=== PATIENT | female | born 1960 | race Caucasian/White ===

== ENCOUNTER 2015-12-24 08:48 | Outpatient (RCR) | payer MEDICARE, MEDICAID ==
[~2015-12-24 08:48] MED LIST: ALPR0.5T PO; ASPI-587 PO; CALC10009 PO; CLC500CT PO; CLIN150C17 PO; CLPD75T PO; DICY10CA26 PO; DICY20TA10 PO; HYDR-1231 PO; HYDR-757 PO; INSASP10V SQ; INSU100I23 SQ; LIRA0.6P SQ; LISI40TA PO; LVT.05T PO; NITR0.4T SL; OMEG1CAP51 PO; OMEP20CA12 PO; RANI300T4 PO; RED600TA PO
--- OUTSIDE RECORDS SUMMARY | 2015-12-24 08:52 | XMS REPORT | Continuity of Care Document ---
Author Author [facility] Organization [facility] Address Unknown Phone Unavailable Care Team Providers Care Dental Office Assistant Name Role Phone NO, LOCAL PHYSICIAN PCP Unavailable Insurance Providers Payer Name Policy Number Subscriber Name Relationship s Medicare [id number] MendelLottie L 18 Self / Same As Patient Medicaid [place] [id number] MendelLottie Purcell 18 Self / Same As Patient Advance Directives Directive Response Recorded Date/Time Advance Directives No 12/18/13 12:45pm Health Care Power of Carbonator No 12/18/13 12:45pm Organ Donor No 12/18/13 12:45pm Resuscitation Status Full Code 12/18/13 12:45pm Problems Medical Problems Problem Onset Date Status Nausea alone Unknown Active Ankle sprain Unknown Active Medications Medication Dose Route Sig Days/Qty Instructions Order Date Discontinued Date Status Lisinopril 40 Mg PO DAILY 07/25/13 Active [place]-3 Fatty Acids/Fish Oil 1,000 Mg PO DAILY 07/25/13 Active Red Yeast Rice 600 Mg PO DAILY 07/25/13 Active Alprazolam 0.5 Mg PO FOUR TIMES DAILY PRN ANXIETY NEEDED FOR ANXIETY 07/25/13 Active Liraglutide 0.6 Mg SQ BEDTIME BETTER 07/25/13 12/18/13 Discontinued Aspirin 81 Mg PO DAILY 07/25/13 Active Levothyroxine Sodium (Levothroid) 50 Mcg PO DAILY 07/25/13 Active Dicyclomine HCl 10 Mg PO BEFORE MEALS PRN STOMACH UPSET 07/25/13 Active Insulin Human Lispro SQ THREE TIMES A DAY BEFORE MEALS PER SLIDING SCALE 07/25/13 Active Ranitidine Hcl 300 Mg PO TWICE A DAY PRN STOMACH UPSET 07/25/13 Active Calcium Carbonate 1,000 Mg PO FOUR TIMES DAILY PRN HEARTBURN TAKES 2 ( 500MG) TABLET NEEDED FOR HEARTBURN 07/25/13 12/18/13 Discontinued Clopidogrel Bisulfate 75 Mg PO DAILY 30 Qty 07/26/13 Active Hydrocodone Bit/Acetaminophen 1-2 Tab PO EVERY 6 HOURS PRN PAIN 20 Qty 12/18/13 Active Social History Social History Problem Response Recorded Date/Time Alcohol Use Denies Use 12/18/2013 12:45pm Recreational Drug Use No 12/18/2013 12:45pm Recent Foreign Travel No 12/18/2013 12:42pm Recent Infectious Disease Exposure No 12/18/2013 12:42pm Smoking Status Never a Smoker 12/18/2013 12:45pm Query Response Start Date Stop Date Smoking Status Never a Smoker Hospital Discharge Instructions No hospital discharge instructions. Plan of Care No plan of care. Functional Status No functional status results. Allergies, Adverse Reactions, Alerts Allergen Type Severity Reaction Status Last Updated Beta-Blockers (Beta-Adrenergic Blocking Agts) ([id number]) Adverse Reaction Intermediate chest tightness Active 10/30/13 Sucsoqe-Kfm-Avu Reductase Inhibitors ([id number]) Allergy Intermediate Active 07/25/13 morphine Allergy Mild Active 07/25/13 Oxycodone Adverse Reaction Mild NAUSEA Active 07/25/13 acetaminophen Adverse Reaction Mild NAUSEA Active 07/25/13 clonazepam Allergy Mild Active 07/25/13 albuterol ([id number]) Adverse Reaction Mild Active 07/25/13 Gabapentin Adverse Reaction Mild Active 07/25/13 metformin ([id number]) Adverse Reaction Intermediate Active 07/25/13 Bupropion Adverse Reaction Mild Active 07/25/13 levofloxacin Adverse Reaction Mild Active 07/25/13 insulin aspart ([id number]) Adverse Reaction Mild Active 07/25/13 Insulin Aspart Protamine Human ([id number]) Adverse Reaction Mild Active 07/25/13 ezetimibe Adverse Reaction Mild NAUSEA Active 07/25/13 insulin detemir ([id number]) Adverse Reaction Mild Active 07/25/13 pregabalin ([id number]) Adverse Reaction Mild Dizzy Active 10/30/13 Lantis Adverse Reaction Unknown can't tolerate Active 10/30/13 Immunizations Name Given Type Date of Pneumonia Vaccine 06/07/13 Historical Vital Signs Acute Vital Signs Vital Response Date/Time Temperature (Fahrenheit) 96.7 degrees F (97.6 - 99.5) Temperature (Calculated Celsius) 35.37772 degrees C (36.4 - 37.5) Temperature Source Temporal Pulse Rate (adult) 96 bpm (60 - 90) Respiratory Rate 18 bpm (12 - 24) O2 Sat by Pulse Oximetry 95 % (88 - 100) Blood Pressure 153/106 mm Hg Pain Pain Intensity 8 Height (Feet) 5 feet Height (Inches) 0.5 inches Height (Calculated Centimeters) 153.873515 cm Weight (Pounds) 172 pounds Weight (Calculated Grams) 35019.888 gm Weight (Calculated Kilograms) 78.161537 kilograms Calculated BMI 32.97 Results Test Source Date Result Interp. Ref. Range Comments Activated Partial Thromboplast Time July 25, 2013 7:45am 30 SEC N 24-35 Alanine Aminotransferase (ALT/SGPT) November 06, 2013 7:53am 46 U/L N 0 -55 Albumin November 06, 2013 7:53am 4.3 G/DL N 3.2-4.5 Alkaline Phosphatase November 06, 2013 7:53am 105 U/L N 40-136 Aspartate Amino Transf (AST/SGOT) November 06, 2013 7:53am 31 U/L N 5- 34 BUN/Creatinine Ratio November 06, 2013 7:53am 12 - Basophils # (Auto) October 30, 2013 12:42pm 0.1 10^3/uL N 0.0-0.1 Basophils (%) (Auto) October 30, 2013 12:42pm 1 % N 0-10 Blood Urea Nitrogen November 06, 2013 7:53am 10 MG/DL N 7-18 Calcium Level November 06, 2013 7:53am 9.4 MG/DL N 8.5-10.1 Carbon Dioxide Level November 06, 2013 7:53am 20 MMOL/L L 21-32 Chloride Level November 06, 2013 7:53am 103 MMOL/L N 98-107 Cholesterol Level November 06, 2013 7:53am 348 MG/DL H -200 Creatinine November 06, 2013 7:53am 0.82 MG/DL N 0.60-1.30 Direct Bilirubin November 06, 2013 7:53am 0.2 MG/DL N 0.0-0.3 Eosinophils # (Auto) October 30, 2013 12:42pm 0.2 10^3/uL N 0.0-0.3 Eosinophils (%) (Auto) October 30, 2013 12:42pm 2 % N 0-10 Glucose Level November 06, 2013 7:53am 315 MG/DL H 70-105 HDL Cholesterol November 06, 2013 7:53am 49 MG/DL N 40-60 Hematocrit October 30, 2013 12:42pm 43 % N 35-52 Hemoglobin October 30, 2013 12:42pm 14.6 G/DL N 11.5-16.0 Indirect Bilirubin November 06, 2013 7:53am 0.4 MG/DL - LDL Cholesterol July 25, 2013 7:45am 172 MG/DL H 0-129 LDL Cholesterol Direct November 06, 2013 7:53am 221 MG/DL H 1-129 Lipase October 30, 2013 12:42pm 54 U/L N 8-78 Lymphocytes # (Auto) October 30, 2013 12:42pm 3.5 X 10^3 N 1.0-4.0 Lymphocytes (%) (Auto) October 30, 2013 12:42pm 38 % N 12-44 Mean Corpuscular Hemoglobin October 30, 2013 12:42pm 29 PG N 25-34 Mean Corpuscular Hemoglobin Concent October 30, 2013 12:42pm 34 G/DL N 32-36 Mean Corpuscular Volume October 30, 2013 12:42pm 85 FL N 80-99 Mean Platelet Volume October 30, 2013 12:42pm 10.2 FL N 7.4-10.4 Monocytes # (Auto) October 30, 2013 12:42pm 0.6 X 10^3 N 0.0-1.0 Monocytes (%) (Auto) October 30, 2013 12:42pm 7 % N 0-12 Neutrophils # (Auto) October 30, 2013 12:42pm 4.8 X 10^3 N 1.8-7.8 Neutrophils (%) (Auto) October 30, 2013 12:42pm 52 % N 42-75 Platelet Count October 30, 2013 12:42pm 300 10^3/uL N 130-400 Potassium Level November 06, 2013 7:53am 4.6 MMOL/L N 3.6-5.0 Prothrombin Time July 25, 2013 7:45am 11.7 SEC L 12.2-14.7 Red Blood Count October 30, 2013 12:42pm 5.01 10^6/uL N 4.35-5.85 Red Cell Distribution Width October 30, 2013 12:42pm 12.6 % N 10.0- 14.5 Sodium Level November 06, 2013 7:53am 133 MMOL/L L 135-145 Total Bilirubin November 06, 2013 7:53am 0.6 MG/DL N 0.1-1.0 Total Protein November 06, 2013 7:53am 7.8 G/DL N 6.4-8.2 Triglycerides Level November 06, 2013 7:53am 379 MG/DL H 0-149 VLDL Cholesterol November 06, 2013 7:53am 76 MG/DL H 5-40 White Blood Count October 30, 2013 12:42pm 9.2 10^3/uL N 4.3-11.0 Glucometer July 26, 2013 5:34am 180 MG/DL H 70-110 Estimat Glomerular Filtration Rate November 06, 2013 7:53am > 60 - GFR INTERPRETIVE DATA UNITS FOR ESTIMATED GFR (eGFR): mL/min/1.73 M2 REFERENCE RANGE FOR ESTIMATED GFR (eGFR) eGFR NORMAL eGFR >60 MODERATELY DECREASED eGFR 30-59 SEVERLY DECREASED eGFR 15-29 KIDNEY FAILURE <15 (OR DIALYSIS) INR Comment July 25, 2013 7:45am 0.9 N 0.8-1.4 INTERPRETIVE DATASUGGESTED THERAPEUTIC RANGE FOR INR'S: VENOUS THROMBOSIS, PULMONARY EMBOLISM, OR PREVENTION OF SYSTEMIC EMBOLISM (EG. IN ATRIAL FIBRILLATION): 2.0 - 3.0 MECHANICAL PROSTHETIC HEART VALVES: 2.5 - 3.5* *NOTE: INR'S UP TO 4.5 MAY BE NECESSARY IN SELECTED GROUPS OF HIGH RISK PATIENTS. [employer] CONSENSUS CONFERENCE ON ANTITHROMBOTIC THERAPY (2000). MRSA Screen Nasal July 25, 2013 7:45am MRSA not isolated Procedures No known history of procedures. Encounters Encounter Location Date/Time Registered Emergency Room [facility] 12/18/13 11:27am Recent Diagnosis
== END 2016-03-23 | disposition home or self-care (01) ==
LOC: CARD 08:48
PROVIDERS: ATTEND Internal Medicine Cardiovascular Disease
DX: R00.2 Palpitations (principal); I25.10 Atherosclerotic heart disease of native coronary artery without angina pectoris; E11.9 Type 2 diabetes mellitus without complications; I10 Essential (primary) hypertension; E78.4 Other hyperlipidemia; I73.9 Peripheral vascular disease, unspecified; M79.89 Other specified soft tissue disorders

== ENCOUNTER 2016-08-17 17:11 | Inpatient (IN) | payer OTHER, MEDICAID ==
[~2016-08-17] VITALS: Ht 152.4 cm; Wt 71.2 kg
[2016-08-17] MEDS ORDERED: KETOROLAC 30 MG/ML VIAL IVP ONE (17:45)
[2016-08-17] MEDS ORDERED: NS IV 1000 ML 1,000 ML IV SCH ×2 (17:45→18:15)
[2016-08-17] MEDS ORDERED: ONDANSETRON 4 MG/2 ML (SDV) Z0FRAN IVP ONE (17:45)
[2016-08-17] MEDS ORDERED: fentaNYL INJECTION 100 MCG/2 ML AMP IVP ONE (17:45)
[2016-08-17 17:50] LABS: BILIRUBIN,URINE NEGATIVE (NEGATIVE); KETONES,URINE 4+ (NEGATIVE); LEUKOCYTE ESTERASE ,URINE 3+ (NEGATIVE); NITRITE,URINE NEGATIVE (NEGATIVE); PH,URINE 5 (5-9); PROTEIN,URINE 3+ (NEGATIVE); UROBILINOGEN,URINE NORMAL (NORMAL)
[2016-08-17 17:51] LABS: BASOPHILS # (AUTO) 0.1 10^3/uL (0.0-0.1); BASOPHILS % (AUTO) 0 % (0-10); EOSINOPHILS % (AUTO) 0 % (0-10); LYMPHOCYTES # (AUTO) 2.9 X 10^3 (1.0-4.0); LYMPHOCYTES % (AUTO) 12 % (12-44); MEAN CORPUSCULAR HEMOGLOBIN 29 PG (25-34); MEAN CORPUSCULAR HGB CONC 35 G/DL (32-36); MEAN CORPUSCULAR VOLUME 83 FL (80-99); MONOCYTES # (AUTO) 1.7 X 10^3 (0.0-1.0); MONOCYTES % (AUTO) 7 % (0-12); NEUTROPHILS # (AUTO) 19.2 X 10^3 (1.8-7.8); NEUTROPHILS % (AUTO) 81 % (42-75); PLATELET COUNT 354 10^3/uL (130-400); RED BLOOD COUNT 5.22 10^6/uL (4.35-5.85); RED CELL DISTRIBUTION WIDTH 12.4 % (10.0-14.5); WHITE BLOOD COUNT 23.9 10^3/uL (4.3-11.0)
--- NOTE | 2016-08-17 17:55 | ED Abdominal Pain ---
General Chief Complaint: -Female Stated Complaint: POSSIBLE UTI/VOMITTING Nursing Triage Note: Pt c/o suprapubic abd pain, urinary frequency, hematuria, and nausea/vomiting since Wednesday (08/14). pt also reports chills. Sepsis Screen: No Definite Risk Source of Information: Patient Exam Limitations: No Limitations History of Present Illness Time Seen By Provider: 17:53 Initial Comments To ER by friends with suprapubic abdominal pain that she rates at 10 out of 10. She also has urinary frequency, burning upon urination, appearance of blood in her urine, nausea vomiting and chills without fever since Wednesday, 08/14. Primary care is with [facility] in [place]. Timing/Duration: 2-3 Days Severity/Quality: Severe Location: Suprapubic Radiation: No Radiation Activities at Onset: None Associated Symptoms: Fever/Chills, Nausea/Vomiting Allergies and Home Medications Allergies Coded Allergies: Drryxri-Wmp-Wjz Reductase Inhibitor (Verified Allergy, Intermediate, ) SEVERE MUSCLE ACHES clonazepam (Verified Allergy, Mild, 07/25/13) DYSRHYMIAS morphine (Verified Allergy, Mild, 07/25/13) ITCHING Beta-Blockers (Beta-Adrenergic Bloc (Unverified Adverse Reaction, Intermediate, chest tightness, 10/30/13) metformin (Unverified Adverse Reaction, Intermediate, 07/25/13) PALPITATIONS acetaminophen (Verified Adverse Reaction, Mild, NAUSEA, 07/25/13) albuterol (Unverified Adverse Reaction, Mild, 07/25/13) LIGHTHEADEDNESS bupropion (Verified Adverse Reaction, Mild, 07/25/13) INCREASED BLOOD SUGAR ezetimibe (Verified Adverse Reaction, Mild, NAUSEA, 07/25/13) gabapentin (Verified Adverse Reaction, Mild, 07/25/13) increased pain insulin aspart (Verified Adverse Reaction, Mild, 07/25/13) "almost killed me" insulin aspart protamine human (Verified Adverse Reaction, Mild, 07/25/13) "almost killed me" insulin detemir (Unverified Adverse Reaction, Mild, 07/25/13) SEVERE MUSCLE PAINS levofloxacin (Verified Adverse Reaction, Mild, 07/25/13) VOMITIMG oxycodone (Verified Adverse Reaction, Mild, NAUSEA, 07/25/13) pregabalin (Unverified Adverse Reaction, Mild, Dizzy, 10/30/13) Uncoded Allergies: Lantis (Adverse Reaction, Unknown, can't tolerate, 10/30/13) Home Medications Alprazolam 0.5 Mg Tablet, 0.5 MG PO QID PRN for ANXIETY, (Reported) Aspirin 81 Mg Tablet.dr, 81 MG PO DAILY, (Reported) Calcium Carbonate 1,000 Mg Tab.chew, 2,000 MG PO TID PRN for STOMACH UPSET, ( Reported) Clindamycin HCl 150 Mg Capsule, 300 MG PO Q6H for 10 Days Prescribed by: TRAVIS WOO on 10/09/141922 Clopidogrel Bisulfate 75 Mg Tab, 75 MG PO DAILY, (Reported) Dicyclomine Hcl 20 Mg Tablet, 20 MG PO QID PRN for STOMACH UPSET, (Reported) Hydrocodone/Acetaminophen 1 Each Tablet, 1 EACH PO Q6H PRN for PAIN, #20 Prescribed by: TRAVIS WOO on 10/09/141922 Insulin Human Lispro 300 U/3 Ml Insuln.pen, 20-30 UNITS SQ AC, (Reported) Levothyroxine Sodium 50 Mcg Tablet, 50 MCG PO DAILY, (Reported) Lisinopril 40 Mg Tablet, 40 MG PO DAILY, (Reported) Nitroglycerin 0.4 Mg Tab.subl, 0.4 MG SL UD PRN for CHEST PAIN, (Reported) TAKE 1 TABLET EVERY 5 MINUTES X 3 DOSES NEEDED FOR CHEST PAIN Omeprazole 20 Mg Capsule.dr, 20 MG PO DAILY PRN for HEART BURN, (Reported) Review of Systems Constitutional: see HPI, chills, No fever EENTM: No Symptoms Reported Respiratory: No Symptoms Reported Cardiovascular: See HPI Gastrointestinal: See HPI, Abdominal Pain, Diarrhea, Nausea, Vomiting Genitourinary: No Symptoms Reported Musculoskeletal: no symptoms reported Skin: no symptoms reported Psychiatric/Neurological: No Symptoms Reported Endocrine: No Symptoms Reported Past Aadycpd-Yxgavu-Cunvnw Hx Patient Social History Alcohol Use: Denies Use Recreational Drug Use: No Smoking Status: Never a Smoker Former Smoker/When Quit: Mar 13, 1995 Recent Foreign Travel: No Contact w/Someone Who Travel: No Recent Infectious Disease Expo: No Recent Hopitalizations: No Immunizations Up To Date Date of Pneumonia Vaccine: Jun 07, 2013 Seasonal Allergies Seasonal Allergies: No Surgeries HX Surgeries: Yes ( X 2, PARTIAL HYST AND 1 OVARY) Surgeries: Adenoidectomy, Section, Coronary Stent, Hysterectomy, Tonsillectomy, Tubal Ligation Respiratory Hx Respiratory Disorders: No Cardiovascular Hx Cardiac Disorders: Yes (chest pains) Cardiac Disorders: Coronary Artery Disease, Hypertension Neurological Hx Neurological Disorders: Yes Neurological Disorders: Concussion Reproductive System Hx Reproductive Disorders: No CAR LUBRICATOR History: Hysterectomy Genitourinary Hx Genitourinary Disorders: No Gastrointestinal Hx Gastrointestinal Disorders: Yes Gastrointestinal Disorders: Irritable Bowel Musculoskeletal Hx Musculoskeletal Disorders: Yes Musculoskeletal Disorders: Fibromyalgia Endocrine Hx Endocrine Disorders: Yes (TYPE II) Endocrine Disorders: Diabetes, Insulin dep HEENT HX ENT Disorders: No Cancer Hx Cancer: No Psychosocial Hx Psychiatric Problems: Yes Behavioral Health Disorders: Anxiety, Depression Integumentary HX Skin/Integumentary Disorder: No Blood Transfusions Hx Blood Disorders: No Physical Exam Vital Signs VS - Last 72 Hours, by Label 08/17/16 17:33 Temp 97.6 Pulse 79 Resp 18 B/P (MAP) 184/90 Pulse Ox 100 O2 Delivery Room Air Capillary Refill : Less Than 3 Seconds General Appearance: WD/WN, no apparent distress HEENT: PERRL/EOMI, normal ENT inspection Neck: non-tender, full range of motion Respiratory: no respiratory distress, no accessory muscle use Gastrointestinal: normal bowel sounds, soft, tenderness Extremities: normal range of motion, non-tender Neurologic/Psychiatric: alert, normal mood/affect, oriented x 3 Skin: warm/dry Progress/Results/Core Measures Results/Orders Lab Results Laboratory Tests Test 08/17/16 17:33 08/17/16 17:43 Range/Units White Blood Count 23.9 H 4.3-11.0 10^3/uL Red Blood Count 5.22 4.35-5.85 10^6/uL Hemoglobin 15.0 11.5-16.0 G/DL Hematocrit 43 35-52 % Mean Corpuscular Volume 83 80-99 FL Mean Corpuscular Hemoglobin 29 25-34 PG Mean Corpuscular Hemoglobin Concent 35 32-36 G/DL Red Cell Distribution Width 12.4 10.0-14.5 % Platelet Count 354 130-400 10^3/uL Mean Platelet Volume 11.0 H 7.4-10.4 FL Neutrophils (%) (Auto) 81 H 42-75 % Lymphocytes (%) (Auto) 12 12-44 % Monocytes (%) (Auto) 7 0-12 % Eosinophils (%) (Auto) 0 0-10 % Basophils (%) (Auto) 0 0-10 % Neutrophils # (Auto) 19.2 H 1.8-7.8 X 10^3 Lymphocytes # (Auto) 2.9 1.0-4.0 X 10^3 Monocytes # (Auto) 1.7 H 0.0-1.0 X 10^3 Eosinophils # (Auto) 0.0 0.0-0.3 10^3/uL Basophils # (Auto) 0.1 0.0-0.1 10^3/uL Neutrophils % (Manual) 68 % Lymphocytes % (Manual) 14 % Monocytes % (Manual) 6 % Eosinophils % (Manual) 0 % Basophils % (Manual) 0 % Band Neutrophils 12 % Blood Morphology Comment NORMAL Sodium Level 133 L 135-145 MMOL/L Potassium Level 4.2 3.6-5.0 MMOL/L Chloride Level 92 L 98-107 MMOL/L Carbon Dioxide Level 20 L 21-32 MMOL/L Anion Gap 21 H 5-14 MMOL/L Blood Urea Nitrogen 16 7-18 MG/DL Creatinine 1.04 0.60-1.30 MG/DL Estimat Glomerular Filtration Rate 55 BUN/Creatinine Ratio 15 0-20 Glucose Level 470 *H 70-105 MG/DL Calcium Level 10.7 H 8.5-10.1 MG/DL Urine Color YELLOW Urine Clarity SLIGHTLY CLOUDY Urine pH 5 5-9 Urine Specific [place] 1.010 L 1.016-1.022 Urine Protein 3+ H NEGATIVE Urine Glucose (UA) 4+ H NEGATIVE Urine Ketones 4+ H NEGATIVE Urine Nitrite NEGATIVE NEGATIVE Urine Bilirubin NEGATIVE NEGATIVE Urine Urobilinogen NORMAL NORMAL MG/DL Urine Leukocyte Esterase 3+ H NEGATIVE Urine RBC (Auto) 5+ H NEGATIVE Urine RBC >100 H /HPF Urine WBC >100 H /HPF Urine Crystals NONE /LPF Urine Bacteria FEW H /HPF Urine Casts NONE /LPF Urine Mucus NEGATIVE /LPF Urine Culture Indicated YES My Orders Orders - TRAVIS WOO APRN Ua Culture If Indicated (08/17/16 17:16) Cbc With Automated Diff (08/17/16 17:16) Basic Metabolic Panel (08/17/16 17:16) Ns Iv 1000 Ml (Sodium Chloride 0.9%) (08/17/16 17:45) Saline Lock/Iv-Start (08/17/16 17:37) Ondansetron Injection (Zofran Injectio (08/17/16 17:45) Ketorolac Injection (Toradol Injection) (08/17/16 17:45) Ct Abdomen/Pelvis W (08/17/16 17:37) Fentanyl Injection (Sublimaze Injection (08/17/16 17:45) Iohexol Injection (Omnipaque 350 Mg/Ml 1 (08/17/16 18:00) Ns (Ivpb) (Sodium Chloride 0.9% Ivpb Bag (08/17/16 18:00) Manual Differential (08/17/16 17:33) Urine Culture (08/17/16 17:43) Blood Culture (08/17/16 17:58) Lactic Acid Analyzer (08/17/16 17:58) Insulin (Regular) Human (Humulin R (Per (08/17/16 18:15) Ns Iv 1000 Ml (Sodium Chloride 0.9%) (08/17/16 18:15) Ceftriaxone Injection (Rocephin Injectio (08/17/16 18:45) Accucheck Stat ONCE (08/17/16 18:48) Medications Given in ED Current Medications Medications Dose Ordered Sig/Judy Route Start Time Stop Time Status Last Admin Dose Admin Fentanyl Citrate 50 mcg ONCE ONCE IVP 08/17/16 17:45 08/17/16 17:46 DC 08/17/16 17:47 50 MCG Insulin Human Regular 10 unit ONCE ONCE IV 08/17/16 18:15 08/17/16 18:16 DC 08/17/16 18:35 10 UNIT Iohexol 100 ml ONCE ONCE IV 08/17/16 18:00 08/17/16 18:01 DC 08/17/16 18:20 100 ML Ketorolac Tromethamine 30 mg ONCE ONCE IVP 08/17/16 17:45 08/17/16 17:46 DC 08/17/16 17:48 30 MG Ondansetron HCl 8 mg ONCE ONCE IVP 08/17/16 17:45 08/17/16 17:46 DC 08/17/16 17:47 8 MG Sodium Chloride 100 ml ONCE ONCE IV 08/17/16 18:00 08/17/16 18:01 DC 08/17/16 18:20 80 ML Vital Signs/I&O Vital Sign - Last 12Hours 08/17/16 17:33 Temp 97.6 Pulse 79 Resp 18 B/P (MAP) 184/90 Pulse Ox 100 O2 Delivery Room Air Blood Pressure Mean: 121 Diagnostic Imaging Diagonstic Imaging: CT Comments NAME: LOTTIE GARDNER [facility] REC#: [id number] PT STATUS: REG ER : 1960 PHYSICIAN: TRAVIS WOO [employer]GE TE[employer] ADMIT DATE: 08/17/16/ER Draft Date of Exam:08/17/16 CT ABDOMEN/PELVIS W PROCEDURE: CT abdomen and pelvis with contrast. TECHNIQUE: Multiple contiguous axial images were obtained through the abdomen and pelvis after administration of intravenous contrast. INDICATION: Lower abdominal pain with nausea. COMPARISON: None available. FINDINGS: Lower chest: The lung bases are clear. No pericardial or pleural effusion. Peritoneum: No free intraperitoneal air or fluid. Liver and biliary system: The liver is normal. The gallbladder is normal. No biliary duct dilation. Spleen and Pancreas: Spleen is normal. The pancreas enhances normally without mass lesion or peripancreatic inflammatory changes. Adrenals: Normal. tract: The kidneys enhance normally without suspicious mass or obstruction. There is mild dilation of bilateral ureters with minimal surrounding inflammatory induration, greater on the left. There are no obstructing distal ureteral calculi. Urinary bladder is distended without significant wall thickening. No imaging findings of pyelonephritis. GI tract: Small hiatus hernia. Stomach is decompressed, limiting evaluation. No bowel obstruction. No pericolonic inflammatory changes. Sigmoid and descending colon diverticulosis without diverticulitis. Normal appendix. Vasculature and Lymph nodes: Normal caliber aorta with scattered atherosclerotic plaquing. No abdominal or pelvic lymphadenopathy. Musculoskeletal: No concerning osseous lesion. IMPRESSION: 1. Minimal dilation with abnormal surrounding inflammation around the ureters, greater on the left. There are no distal obstructing calculi or hydronephrosis. This appearance is either due to recently passed stone versus pyelitis from infection. Correlation with patient's urinalysis is recommended. 2. Colonic diverticulosis without diverticulitis. 3. Small hiatus hernia. Dictated on workstation # [id number] Dict: 08/17/16 1833 Trans: 08/17/16 [id number] Interpreted by: JUAN PEÑA MD Electronically signed by: Departure Communication Time/Spoke to Admitting Phy: 18:54 Communication Assessed the case with Dr. Iverson. We will admit the patient. Fluids, Rocephin Impression Impression: Primary Impression: Urinary tract infection Additional Impressions: Nausea and vomiting Sepsis Disposition: ADMITTED INPATIENT Condition: Stable Decision to Admit Reason: Admit from ER (General) Decision to Admit/Date: Aug 17, 2016 Time/Decision to Admit Time: 18:48 Departure-Patient Inst. Decision time for Depature: 18:48 Referrals: NO,LOCAL PHYSICIAN (PCP/Family) Primary Care Physician TRAVIS WOO APRN Aug 17, 2016 17:55
[2016-08-17 17:57] LABS: WBC,URINE >100 /HPF
[2016-08-17] MEDS ORDERED: NS 100 ML (IVPB) BAG IV ONE (18:00)
[2016-08-17] MEDS ORDERED: IOHEXOL 350 MG/ML 100 ML (OMNIPAQUE 350) VIAL IV ONE (18:00)
[2016-08-17 18:02] LABS: BAND NEUTROPHILS 12 %; BASOPHILS % (MANUAL) 0 %; EOSINOPHILS % (MANUAL) 0 %; LYMPHOCYTES % (MANUAL) 14 %; NEUTROPHILS % (MANUAL) 68 %
[2016-08-17 18:07] LABS: CALCIUM 10.7 MG/DL (8.5-10.1); CREATININE SERUM 1.04 MG/DL (0.60-1.30); ICTERUS 0.7 (-100-1.9); POTASSIUM 4.2 MMOL/L (3.6-5.0)
[2016-08-17] MEDS ORDERED: inSUlin (REGULAR) HUMAN 1 UNIT/0.01 ML (CHARGE PER UNIT) IV ONE (18:15)
[2016-08-17] MEDS ORDERED: cefTRIAXone INJECTION 1,000 MG in NS (IVPB) 50 ML IV ONE (18:45)
--- NOTE | 2016-08-17 18:48 | Diagnostic Imaging Report ---
PROCEDURE: CT abdomen and pelvis with contrast. TECHNIQUE: Multiple contiguous axial images were obtained through the abdomen and pelvis after administration of intravenous contrast. INDICATION: Lower abdominal pain with nausea. COMPARISON: None available. FINDINGS: Lower chest: The lung bases are clear. No pericardial or pleural effusion. Peritoneum: No free intraperitoneal air or fluid. Liver and biliary system: The liver is normal. The gallbladder is normal. No biliary duct dilation. Spleen and Pancreas: Spleen is normal. The pancreas enhances normally without mass lesion or peripancreatic inflammatory changes. Adrenals: Normal. tract: The kidneys enhance normally without suspicious mass or obstruction. There is mild dilation of bilateral ureters with minimal surrounding inflammatory induration, greater on the left. There are no obstructing distal ureteral calculi. Urinary bladder is distended without significant wall thickening. No imaging findings of pyelonephritis. GI tract: Small hiatus hernia. Stomach is decompressed, limiting evaluation. No bowel obstruction. No pericolonic inflammatory changes. Sigmoid and descending colon diverticulosis without diverticulitis. Normal appendix. Vasculature and Lymph nodes: Normal caliber aorta with scattered atherosclerotic plaquing. No abdominal or pelvic lymphadenopathy. Musculoskeletal: No concerning osseous lesion. IMPRESSION: 1. Minimal dilation with abnormal surrounding inflammation around the ureters, greater on the left. There are no distal obstructing calculi or hydronephrosis. This appearance is either due to recently passed stone versus pyelitis from infection. Correlation with patient's urinalysis is recommended. 2. Colonic diverticulosis without diverticulitis. 3. Small hiatus hernia. Dictated by: Dictated on workstation # [id number]
[2016-08-17 19:55] VITALS: BP 126/78
[2016-08-17] MEDS ORDERED: CATHETER FLUSH 10 ML SYR IV PRN (20:15)
[2016-08-17] MEDS ORDERED: PROCHLORPERAZINE 10 MG/2ML INJ (COMPAZINE) IV PRN (20:15)
[2016-08-17] MEDS: NS IV 1000 ML 1,000 ML IV SCH (21:44)
[2016-08-17] MEDS: inSUlin (REGULAR) HUMAN 1 UNIT/0.01 ML (CHARGE PER UNIT) SC SCH (21:45)
[2016-08-18] VITALS (7 sets, daily range): BP systolic 121–147; BP diastolic 57–68
[2016-08-18] MEDS: NS IV 1000 ML 1,000 ML IV SCH ×4 (03:45→22:33)
[2016-08-18] MEDS: ONDANSETRON 4 MG/2 ML (SDV) Z0FRAN IV PRN ×2 (05:10→09:53)
[2016-08-18 06:12] LABS: BASOPHILS % (AUTO) 0 % (0-10); EOSINOPHILS # (AUTO) 0.1 10^3/uL (0.0-0.3); EOSINOPHILS % (AUTO) 1 % (0-10); LYMPHOCYTES # (AUTO) 3.2 X 10^3 (1.0-4.0); LYMPHOCYTES % (AUTO) 28 % (12-44); MEAN CORPUSCULAR HEMOGLOBIN 29 PG (25-34); MEAN CORPUSCULAR HGB CONC 34 G/DL (32-36); MEAN CORPUSCULAR VOLUME 83 FL (80-99); MEAN PLATELET VOLUME 10.9 FL (7.4-10.4); MONOCYTES % (AUTO) 9 % (0-12); NEUTROPHILS % (AUTO) 62 % (42-75); PLATELET COUNT 267 10^3/uL (130-400); RED BLOOD COUNT 4.21 10^6/uL (4.35-5.85); RED CELL DISTRIBUTION WIDTH 12.1 % (10.0-14.5); WHITE BLOOD COUNT 11.4 10^3/uL (4.3-11.0)
[2016-08-18] MEDS: inSUlin (REGULAR) HUMAN 1 UNIT/0.01 ML (CHARGE PER UNIT) SC SCH ×4 (06:19→21:24)
[2016-08-18] MEDS ORDERED: METF500T8 PO (08:53)
[2016-08-18] MEDS ORDERED: DICY10CA12 PO (08:53)
[2016-08-18] MEDS ORDERED: ALPR0.254 PO (08:53)
[2016-08-18] MEDS ORDERED: LISI10TA2 PO (08:53)
[2016-08-18] MEDS ORDERED: INSU100V SC (08:53)
[2016-08-18] MEDS ORDERED: CRAN1TAB4 PO (08:54)
[2016-08-18] MEDS ORDERED: IBUP-30 PO (08:55)
--- OUTSIDE RECORDS SUMMARY | 2016-08-18 08:59 | XMS REPORT | Continuity of Care Document ---
Author Author Person [facility] Address Unknown Phone Unavailable Allergies Active Description Code Type Severity Reaction Onset Reported/Identified Relationship to Patient Clinical Status Yes albuterol Drug Allergy N/A N/A 03/14/2013 Yes amitriptyline Drug Allergy N/A N/A 03/14/2013 Yes Levaquin Drug Allergy N/A N/A 03/14/2013 Yes metformin Drug Allergy N/A N/A 03/14/2013 Yes morphine Drug Allergy N/A N/A 03/14/2013 Yes Novolog Mix 70-30 Drug Allergy N/A N/A 03/14/2013 Yes Uiikhhu-Kzo-Nek Reductase Inhibitors Drug Allergy N/A N/ A 03/14/2013 Yes Beta-Blockers (Beta-Adrenergic Blocking Agts) Drug Allergy N/A N/A 04/04/2013 Yes Klonopin Drug Allergy N/A N/A 04/04/2013 Yes Lantus Drug Allergy N/A N/A 04/04/2013 Yes Neurontin Drug Allergy N/A N/A 04/04/2013 Yes Percocet Drug Allergy N/A N/A 04/04/2013 Yes tramadol Drug Allergy N/A N/A 04/04/2013 Yes Tricyclic Compounds Drug Allergy N/A N/A 04/04/2013 Yes Wellbutrin Drug Allergy N/A N/A 04/04/2013 Yes Zetia Drug Allergy N/A N/A 04/04/2013 Yes metformin [id number] Drug Allergy Moderate N/A 07/25/2013 Yes Ftrephg-Jdz-Olf Reductase Inhibitor [id number] Drug Allergy Moderate N/A 07/25/2013 Yes acetaminophen [id number] Drug Allergy Mild NAUSEA 07/25/2013 Yes albuterol [id number] Drug Allergy Mild N/A 07/25/2013 Yes bupropion [id number] Drug Allergy Mild N/A 07/25/2013 Yes clonazepam [id number] Drug Allergy Mild N/A 07/25/2013 Yes ezetimibe [id number] Drug Allergy Mild NAUSEA 07/25/2013 Yes gabapentin [id number] Drug Allergy Mild N/A 07/25/2013 Yes insulin aspart [id number] Drug Allergy Mild N/A 07/25/2013 Yes insulin aspart protamine human [id number] Drug Allergy Mild N/A 07/25/2013 Yes insulin detemir [id number] Drug Allergy Mild N/A 07/25/2013 Yes levofloxacin [id number] Drug Allergy Mild N/A 07/25/2013 Yes morphine [id number] Drug Allergy Mild N/A 07/25/2013 Yes oxycodone [id number] Drug Allergy Mild NAUSEA 07/25/2013 Yes Beta-Blockers (Beta-Adrenergic Bloc [id number] Drug Allergy Moderate chest tightness 10/30/2013 Yes pregabalin [id number] Drug Allergy Mild Dizzy 10/30/2013 Yes Raymundo Fonseca Unknown can't tolerate 10/30/2013 Medications Problems Date Dx Coded Attending Type Code Diagnosis Diagnosed By 11/24/2007 ANNEL LEDESMA DO 250.02 DIABETES II UNCONTROLLED 11/24/2007 ANNEL LEDESMA DO K 251.1 HYPERINSULINISM 11/24/2007 ANDREW LEDESMA DOA K 300.00 ANXIETY 11/24/2007 ANNEL LEDESMA DO K 250.02 DIABETES II UNCONTROLLED 11/24/2007 ANNEL LEDESMA DO K 251.1 HYPERINSULINISM 11/24/2007 ANDREW LEDESMA DOA K 300.00 ANXIETY 11/24/2007 ANDREW LEDESMA DOA K 250.02 DIABETES II UNCONTROLLED 11/24/2007 ANNEL LEDESMA DO K 251.1 HYPERINSULINISM 11/24/2007 ANDREW LEDESMA DOA K 300.00 ANXIETY 11/24/2007 ANDREW LEDESMA DOA K 250.02 DIABETES II UNCONTROLLED 11/24/2007 ANDREW LEDESMA DOA K 251.1 HYPERINSULINISM 11/24/2007 ANDREW LEDESMA DOA K 300.00 ANXIETY 11/24/2007 MAYRA MONTAÑO MD 250.02 DIABETES II UNCONTROLLED 11/24/2007 MAYRA MONTAÑO MD 251.1 HYPERINSULINISM 11/24/2007 MAYRA MONTAÑO MD 300.00 ANXIETY 11/24/2007 ANNEL LEDESMA DO 250.02 DIABETES MELLITUS TYPE 2 - UNCOMPLICATED, UNCONTROLLED 11/24/2007 LEDESMA DO, ANNEL K 251.1 HYPERINSULINISM 11/24/2007 CALLIE BONDS ANNEL K 300.00 ANXIETY 11/24/2007 CALLIE BONDS ANNEL K 250.02 DIABETES MELLITUS TYPE 2 - UNCOMPLICATED, UNCONTROLLED 11/24/2007 CALLIE BONDS ANNEL K 251.1 HYPERINSULINISM 11/24/2007 CALLIE BONDS ANNEL K 300.00 ANXIETY 11/24/2007 FARR CASHERO INSPECTOR [employer]ARDS, BHARGAV N 250.02 DIABETES MELLITUS TYPE 2 - UNCOMPLICATED, UNCONTROLLED 11/24/2007 FARR CASHERO INSPECTOR [employer]DS, BHARGAV N 251.1 HYPERINSULINISM 11/24/2007 FARR CASHRED INSPECTOR [employer], BHARGAV N 300.00 ANXIETY 11/24/2007 CALLIE BONDS ANNEL K 250.02 DIABETES MELLITUS TYPE 2 - UNCOMPLICATED, UNCONTROLLED 11/24/2007 CALLIE BONDSANDREWA K 251.1 HYPERINSULINISM 11/24/2007 CALLIE BONDSANDREWA K 300.00 ANXIETY 11/24/2007 JOEL CM APRN 250.02 DIABETES MELLITUS TYPE 2 - UNCOMPLICATED, UNCONTROLLED 11/24/2007 JOEL CM APRN 251.1 HYPERINSULINISM 11/24/2007 JOEL CM APRN 300.00 ANXIETY 11/24/2007 JOEL CM APRN 250.02 DIABETES MELLITUS TYPE 2 - UNCOMPLICATED, UNCONTROLLED 11/24/2007 JOEL CM APRN 251.1 HYPERINSULINISM 11/24/2007 JOEL CM APRN 300.00 ANXIETY 11/24/2007 JOEL CM APRN 250.02 DIABETES MELLITUS TYPE 2 - UNCOMPLICATED, UNCONTROLLED 11/24/2007 JOEL CM APRN 251.1 HYPERINSULINISM 11/24/2007 JOEL CM APRN 300.00 ANXIETY 11/24/2007 LEANNE CM APRNFER Lionel 250.02 DIABETES MELLITUS TYPE 2 - UNCOMPLICATED, UNCONTROLLED 11/24/2007 JOEL CM APRN 251.1 HYPERINSULINISM 11/24/2007 JOEL CM APRN J 300.00 ANXIETY 11/24/2007 JOEL CM APRN 250.02 DIABETES MELLITUS TYPE 2 - UNCOMPLICATED, UNCONTROLLED 11/24/2007 JOEL CM APRN 251.1 HYPERINSULINISM 11/24/2007 JOEL CM APRN 300.00 ANXIETY 12/13/2007 LEDESMA DO, ANNEL K 401.1 HYPERTENSION, BENIGN ESSENTIAL 12/13/2007 LEDESMA DO, ANNEL K 465.9 UPPER RESPIRATORY INFECTION 12/13/2007 LEDESMA DO, ANNEL K 780.60 FEVER, UNSPECIFIED 12/13/2007 LEDESMA DO, ANNEL K 401.1 HYPERTENSION, BENIGN ESSENTIAL 12/13/2007 LEDESMA DO, ANNEL K 465.9 UPPER RESPIRATORY INFECTION 12/13/2007 LEDESMA DO, ANNEL K 780.60 FEVER, UNSPECIFIED 12/13/2007 LEDESMA DO, ANNEL K 401.1 HYPERTENSION, BENIGN ESSENTIAL 12/13/2007 LEDESMA DO, ANNEL K 465.9 UPPER RESPIRATORY INFECTION 12/13/2007 LEDESMA DO, ANNEL K 780.60 FEVER, UNSPECIFIED 12/13/2007 LEDESMA DO, ANNEL K 401.1 HYPERTENSION, BENIGN ESSENTIAL 12/13/2007 LEDESMA DO, ANNEL K 465.9 UPPER RESPIRATORY INFECTION 12/13/2007 LEDESMA DO, ANNEL K 780.60 FEVER, UNSPECIFIED 12/13/2007 MAYRA MONTAÑO MD 401.1 HYPERTENSION, BENIGN ESSENTIAL 12/13/2007 MAYRA MONTAÑO MD 465.9 UPPER RESPIRATORY INFECTION 12/13/2007 MAYRA MONTAÑO MD 780.60 FEVER, UNSPECIFIED 12/13/2007 LEDESMA DO, ANNEL K 401.1 ESSENTIAL HYPERTENSION BENIGN 12/13/2007 LEDESMA DO, ANNEL K 465.9 UPPER RESPIRATORY INFECTION 12/13/2007 LEDESMA DO, ANNEL K 780.60 FEVER, UNSPECIFIED 12/13/2007 LEDESMA DO, ANNEL K 401.1 ESSENTIAL HYPERTENSION BENIGN 12/13/2007 LEDESMA DO, ANNEL K 465.9 UPPER RESPIRATORY INFECTION 12/13/2007 LEDESMA DO, ANNEL K 780.60 FEVER, UNSPECIFIED 12/13/2007 FARR CASHERO INSPECTOR [employer], BHARGAV N 401.1 ESSENTIAL HYPERTENSION BENIGN 12/13/2007 FARR CASHERO INSPECTOR [employer], BHARGAV N 465.9 UPPER RESPIRATORY INFECTION 12/13/2007 FARR CASHERO INSPECTOR [employer], BHARGAV N 780.60 FEVER, UNSPECIFIED 12/13/2007 LEDESMA DO, ANNEL K 401.1 ESSENTIAL HYPERTENSION BENIGN 12/13/2007 LEDESMA DO, ANNEL K 465.9 UPPER RESPIRATORY INFECTION 12/13/2007 LEDESMA DO, ANNEL K 780.60 FEVER, UNSPECIFIED 12/13/2007 CM INSPECTOR [employer], JOEL J 401.1 ESSENTIAL HYPERTENSION BENIGN 12/13/2007 JOEL CM APRN J 465.9 UPPER RESPIRATORY INFECTION 12/13/2007 LEANNE CM APRNFER J 780.60 FEVER, UNSPECIFIED 12/13/2007 LEANNE CM APRNFER J 401.1 ESSENTIAL HYPERTENSION BENIGN 12/13/2007 LEANNE CM APRNFER J 465.9 UPPER RESPIRATORY INFECTION 12/13/2007 LEANNE CM APRNFER J 780.60 FEVER, UNSPECIFIED 12/13/2007 LEANNE CM APRNFER J 401.1 ESSENTIAL HYPERTENSION BENIGN 12/13/2007 LEANNE CM APRNFER J 465.9 UPPER RESPIRATORY INFECTION 12/13/2007 LEANNE CM APRNFER J 780.60 FEVER, UNSPECIFIED 12/13/2007 LEANNE CM APRNFER J 401.1 ESSENTIAL HYPERTENSION BENIGN 12/13/2007 JOEL CM APRN J 465.9 UPPER RESPIRATORY INFECTION 12/13/2007 LEANNE CM APRNFER J 780.60 FEVER, UNSPECIFIED 12/13/2007 LEANNE CM APRNFER J 401.1 ESSENTIAL HYPERTENSION BENIGN 12/13/2007 LEANNE CM APRNFER J 465.9 UPPER RESPIRATORY INFECTION 12/13/2007 LEANNE CM APRNFER J 780.60 FEVER, UNSPECIFIED 12/22/2007 LEDESMA DO, ANNEL K 270.7 HYPERGLYCEMIA 12/22/2007 LEDESMA DO, ANNEL K 270.7 HYPERGLYCEMIA 12/22/2007 LEDESMA DO, ANNEL K 270.7 HYPERGLYCEMIA 12/22/2007 LEDESMA DO, ANNEL K 270.7 HYPERGLYCEMIA 12/22/2007 MAYRA MONTAÑO MD 270.7 HYPERGLYCEMIA 12/22/2007 LEDESMA DO, ANNEL K 270.7 HYPERGLYCEMIA 12/22/2007 LEDESMA DO, ANNEL K 270.7 HYPERGLYCEMIA 12/22/2007 BHARGAV ROJAS APRN 270.7 HYPERGLYCEMIA 12/22/2007 LEDESMA DO, ANNEL K 270.7 HYPERGLYCEMIA 12/22/2007 LEANNE CM APRNFER J 270.7 HYPERGLYCEMIA 12/22/2007 JOEL CM APRN J 270.7 HYPERGLYCEMIA 12/22/2007 JOEL CM APRN J 270.7 HYPERGLYCEMIA 12/22/2007 JOEL CM APRN J 270.7 HYPERGLYCEMIA 12/22/2007 JOEL CM APRN 270.7 HYPERGLYCEMIA 01/13/2008 LEDESMA DO, ANNEL K 272.0 HYPERCHOLESTEROLEMIA PURE 01/13/2008 LEDESMA DO, ANNEL K 272.1 HYPERTRIGLYCERIDEMIA 01/13/2008 LEDESMA DO, ANNEL K 272.4 HYPERLIPIDEMIA UNSPECIFIED 01/13/2008 LEDESMA DO, ANNEL K 272.0 HYPERCHOLESTEROLEMIA PURE 01/13/2008 LEDESMA DO, ANNEL K 272.1 HYPERTRIGLYCERIDEMIA 01/13/2008 LEDESMA DO, ANNEL K 272.4 HYPERLIPIDEMIA UNSPECIFIED 01/13/2008 LEDESMA DO, ANNEL K 272.0 HYPERCHOLESTEROLEMIA PURE 01/13/2008 LEDESMA DO, ANNEL K 272.1 HYPERTRIGLYCERIDEMIA 01/13/2008 LEDESMA DO, ANNEL K 272.4 HYPERLIPIDEMIA UNSPECIFIED 01/13/2008 LEDESMA DO, ANNEL K 272.0 HYPERCHOLESTEROLEMIA PURE 01/13/2008 LEDESMA DO, ANNEL K 272.1 HYPERTRIGLYCERIDEMIA 01/13/2008 LEDESMA DO, ANNEL K 272.4 HYPERLIPIDEMIA UNSPECIFIED 01/13/2008 MAYRA MONTAÑO MD 272.0 HYPERCHOLESTEROLEMIA PURE 01/13/2008 MAYRA MONTAÑO MD 272.1 HYPERTRIGLYCERIDEMIA 01/13/2008 MAYRA MONTAÑO MD 272.4 HYPERLIPIDEMIA UNSPECIFIED 01/13/2008 LEDESMA DO, ANNEL K 272.0 HYPERCHOLESTEROLEMIA PURE 01/13/2008 LEDESMA DO, ANNEL K 272.1 HYPERTRIGLYCERIDEMIA 01/13/2008 LEDESMA DO, ANNEL K 272.4 HYPERLIPIDEMIA 01/13/2008 LEDESMA DO, ANNEL K 272.0 HYPERCHOLESTEROLEMIA PURE 01/13/2008 LEDESMA DO, ANNEL K 272.1 HYPERTRIGLYCERIDEMIA 01/13/2008 LEDESMA DO, ANNEL K 272.4 HYPERLIPIDEMIA 01/13/2008 FARR CASHERO INSPECTOR [employer], BHARGAV N 272.0 HYPERCHOLESTEROLEMIA PURE 01/13/2008 FARR CASHERO INSPECTOR [employer], BHARGAV N 272.1 HYPERTRIGLYCERIDEMIA 01/13/2008 FARR CASHERO INSPECTOR [employer], BHARGAV N 272.4 HYPERLIPIDEMIA 01/13/2008 LEDESMA DO, ANNEL K 272.0 HYPERCHOLESTEROLEMIA PURE 01/13/2008 LEDESMA DO, ANNEL K 272.1 HYPERTRIGLYCERIDEMIA 01/13/2008 LEDESMA DO, ANNEL K 272.4 HYPERLIPIDEMIA 01/13/2008 JOEL CM APRN 272.0 HYPERCHOLESTEROLEMIA PURE 01/13/2008 CM INSPECTOR [employer], JOEL J 272.1 HYPERTRIGLYCERIDEMIA 01/13/2008 CM INSPECTOR [employer], JOEL J 272.4 HYPERLIPIDEMIA 01/13/2008 CM INSPECTOR [employer], JOEL J 272.0 HYPERCHOLESTEROLEMIA PURE 01/13/2008 CM INSPECTOR [employer], JOEL J 272.1 HYPERTRIGLYCERIDEMIA 01/13/2008 CM INSPECTOR [employer], JOEL J 272.4 HYPERLIPIDEMIA 01/13/2008 CM INSPECTOR [employer], JOEL J 272.0 HYPERCHOLESTEROLEMIA PURE 01/13/2008 CM INSPECTOR [employer], JOEL J 272.1 HYPERTRIGLYCERIDEMIA 01/13/2008 CM INSPECTOR [employer], JOEL J 272.4 HYPERLIPIDEMIA 01/13/2008 CM INSPECTOR [employer], JOEL J 272.0 HYPERCHOLESTEROLEMIA PURE 01/13/2008 CM INSPECTOR [employer], JOEL J 272.1 HYPERTRIGLYCERIDEMIA 01/13/2008 CM INSPECTOR [employer], JOEL J 272.4 HYPERLIPIDEMIA 01/13/2008 CM INSPECTOR [employer], JOEL J 272.0 HYPERCHOLESTEROLEMIA PURE 01/13/2008 CM INSPECTOR [employer], JOEL J 272.1 HYPERTRIGLYCERIDEMIA 01/13/2008 CM INSPECTOR [employer], JOEL J 272.4 HYPERLIPIDEMIA 03/01/2008 ANNEL LEDESMA DO 079.99 VIRAL SYNDROME 03/01/2008 ANNEL LEDESMA DO 787.02 NAUSEA ALONE 03/01/2008 ANNEL LEDESMA DO 079.99 VIRAL SYNDROME 03/01/2008 ANNEL LEDESMA DO K 787.02 NAUSEA ALONE 03/01/2008 ANNEL LEDESMA DO K 079.99 VIRAL SYNDROME 03/01/2008 ANNEL LEDESMA DO 787.02 NAUSEA ALONE 03/01/2008 ANNEL LEDESMA DO 079.99 VIRAL SYNDROME 03/01/2008 ANNEL LEDESMA DO K 787.02 NAUSEA ALONE 03/01/2008 MAYRA MONTAÑO MD 079.99 VIRAL SYNDROME 03/01/2008 MAYRA MONTAÑO MD 787.02 NAUSEA ALONE 03/01/2008 ANNEL LEDESMA DO 079.99 VIRAL SYNDROME 03/01/2008 ANNEL LEDESMA DO K 787.02 NAUSEA ALONE 03/01/2008 ANNEL LEDESMA DO 079.99 VIRAL SYNDROME 03/01/2008 ANNEL LEDESMA DO 787.02 NAUSEA ALONE 03/01/2008 BHARGAV ROJAS APRN 079.99 VIRAL SYNDROME 03/01/2008 FARRCHICHI JO APRN, BHARGAV N 787.02 NAUSEA ALONE 03/01/2008 ANNEL LEDESMA DO K 079.99 VIRAL SYNDROME 03/01/2008 ANNEL LEDESMA DO 787.02 NAUSEA ALONE 03/01/2008 CM INSPECTOR [employer]INTED CIRCUIT BOARDSJOEL Herron J 079.99 VIRAL SYNDROME 03/01/2008 CM INSPECTOR [employer], JOEL J 787.02 NAUSEA ALONE 03/01/2008 CM INSPECTOR [employer], JOEL J 079.99 VIRAL SYNDROME 03/01/2008 CM INSPECTOR [employer], JOEL J 787.02 NAUSEA ALONE 03/01/2008 CM INSPECTOR [employer], JOEL J 079.99 VIRAL SYNDROME 03/01/2008 CM INSPECTOR [employer], JOEL J 787.02 NAUSEA ALONE 03/01/2008 CM INSPECTOR [employer], JOEL J 079.99 VIRAL SYNDROME 03/01/2008 CM INSPECTOR [employer], JOEL J 787.02 NAUSEA ALONE 03/01/2008 CM INSPECTOR [employer], JOEL J 079.99 VIRAL SYNDROME 03/01/2008 CM INSPECTOR [employer], JOEL Lionel 787.02 NAUSEA ALONE 03/14/2013 ANNEL LEDESMA DO V58.69 LONG-TERM (CURRENT) USE OF OTHER MEDICATIONS 03/14/2013 ANNEL LEDESMA DO V58.69 LONG-TERM (CURRENT) USE OF OTHER MEDICATIONS 03/14/2013 ANNEL LEDESMA DO V58.69 LONG-TERM (CURRENT) USE OF OTHER MEDICATIONS 03/14/2013 ANNEL LEDESMA DO V58.69 LONG-TERM (CURRENT) USE OF OTHER MEDICATIONS 03/14/2013 MAYRA MONTAÑO MD V58.69 LONG-TERM (CURRENT) USE OF OTHER MEDICATIONS 03/14/2013 ANNEL LEDESMA DO V58.69 LONG-TERM (CURRENT) USE OF OTHER MEDICATIONS 03/14/2013 ANNEL LEDESMA DO V58.69 LONG-TERM (CURRENT) USE OF OTHER MEDICATIONS 03/14/2013 BHARGAV ROJAS APRN V58.69 LONG-TERM (CURRENT) USE OF OTHER MEDICATIONS 03/14/2013 ANNEL LEDESMA DO V58.69 LONG-TERM (CURRENT) USE OF OTHER MEDICATIONS 03/14/2013 CMJOEL HAYES APRN V58.69 LONG-TERM (CURRENT) USE OF OTHER MEDICATIONS 03/14/2013 JOEL CM APRN V58.69 LONG-TERM (CURRENT) USE OF OTHER MEDICATIONS 03/14/2013 JOEL CM APRN V58.69 LONG-TERM (CURRENT) USE OF OTHER MEDICATIONS 03/14/2013 JOEL CM APRN V58.69 LONG-TERM (CURRENT) USE OF OTHER MEDICATIONS 03/14/2013 JOEL CM APRN V58.69 LONG-TERM (CURRENT) USE OF OTHER MEDICATIONS 04/04/2013 ANNEL LEDESMA DO 724.5 BACKACHE UNSPECIFIED 04/04/2013 ANDREW LEDESMA DOA K 729.1 MYALGIA AND MYOSITIS UNSPECIFIED 04/04/2013 ANDREW LEDESMA DOA K 724.5 BACKACHE UNSPECIFIED 04/04/2013 ANDREW LEDESMA DOA K 729.1 MYALGIA AND MYOSITIS UNSPECIFIED 04/04/2013 MAYRA MONTAÑO MD 724.5 BACKACHE UNSPECIFIED 04/04/2013 MAYRA MONTAÑO MD 729.1 MYALGIA AND MYOSITIS UNSPECIFIED 04/04/2013 ANDREW LEDESMA DOA K 724.5 BACKACHE UNSPECIFIED 04/04/2013 ANDREW LEDESMA DOA K 729.1 MYALGIA AND MYOSITIS UNSPECIFIED 04/04/2013 ANDREW LEDESMA DOA K 724.5 BACKACHE UNSPECIFIED 04/04/2013 ANDREW LEDESMA DOA K 729.1 MYALGIA AND MYOSITIS UNSPECIFIED 04/04/2013 BHARGAV ROJAS APRN N 724.5 BACKACHE UNSPECIFIED 04/04/2013 RENUKA ROJAS APRNCY N 729.1 MYALGIA AND MYOSITIS UNSPECIFIED 04/04/2013 ANDREW LEDESMA DOA K 724.5 BACKACHE UNSPECIFIED 04/04/2013 ANDREW LEDESMA DOA K 729.1 MYALGIA AND MYOSITIS UNSPECIFIED 04/04/2013 JOEL CM APRN 724.5 BACKACHE UNSPECIFIED 04/04/2013 JOEL CM APRN 729.1 MYALGIA AND MYOSITIS UNSPECIFIED 04/04/2013 JOEL CM APRN 724.5 BACKACHE UNSPECIFIED 04/04/2013 JOEL CM APRN 729.1 MYALGIA AND MYOSITIS UNSPECIFIED 04/04/2013 JOEL CM APRN 724.5 BACKACHE UNSPECIFIED 04/04/2013 JOEL CM APRN 729.1 MYALGIA AND MYOSITIS UNSPECIFIED 04/04/2013 JOEL CM APRN 724.5 BACKACHE UNSPECIFIED 04/04/2013 JOEL CM APRN 729.1 MYALGIA AND MYOSITIS UNSPECIFIED 04/04/2013 JOEL CM APRN 724.5 BACKACHE UNSPECIFIED 04/04/2013 JOEL CM APRN 729.1 MYALGIA AND MYOSITIS UNSPECIFIED 04/25/2013 CALLIE BONDS ANNEL K 786.50 UNSPECIFIED CHEST PAIN 04/25/2013 MAYRA MONTAÑO MD 786.50 UNSPECIFIED CHEST PAIN 04/25/2013 LEDESMA DO ANNEL K 786.50 UNSPECIFIED CHEST PAIN 04/25/2013 LEDESMA ANDREW BONDSA K 786.50 UNSPECIFIED CHEST PAIN 04/25/2013 BHARGAV ROJAS APRN N 786.50 UNSPECIFIED CHEST PAIN 04/25/2013 LEDESMA DO ANNEL K 786.50 UNSPECIFIED CHEST PAIN 04/25/2013 JOEL CM APRN 786.50 UNSPECIFIED CHEST PAIN 04/25/2013 JOEL CM APRN 786.50 UNSPECIFIED CHEST PAIN 04/25/2013 JOEL CM APRN 786.50 UNSPECIFIED CHEST PAIN 04/25/2013 JOEL CM APRN 786.50 UNSPECIFIED CHEST PAIN 04/25/2013 JOEL CM APRN 786.50 UNSPECIFIED CHEST PAIN 07/10/2013 LEDESMA DO ANNEL K 530.81 ESOPHAGEAL REFLUX 07/10/2013 LEDESMA DO ANNEL K 530.81 ESOPHAGEAL REFLUX 07/10/2013 RENUKA ROJAS APRNCY N 530.81 ESOPHAGEAL REFLUX 07/10/2013 LEDESMA DO ANNEL K 530.81 ESOPHAGEAL REFLUX 07/10/2013 JOEL CM APRN 530.81 ESOPHAGEAL REFLUX 07/10/2013 JOEL CM APRN 530.81 ESOPHAGEAL REFLUX 07/10/2013 JOEL CM APRN 530.81 ESOPHAGEAL REFLUX 07/10/2013 JOEL CM APRN 530.81 ESOPHAGEAL REFLUX 07/10/2013 JOEL CM APRN 530.81 ESOPHAGEAL REFLUX 07/19/2013 ANDREW LEDESMA DOA K 250.00 DIABETES II CONTROLLED (UNCOMPLICATED) 07/19/2013 ANDREW LEDESMA DOA K 401.9 HYPERTENSION, UNSPECIFIED ESSENTIAL 07/19/2013 ANDREW LEDESMA DOA K 785.1 PALPITATIONS 07/19/2013 CHIKA JO RENUKA GHOSHCY N 250.00 DIABETES II CONTROLLED ( UNCOMPLICATED) 07/19/2013 CHIKA JO BHARGAV GHOSH N 401.9 HYPERTENSION, UNSPECIFIED ESSENTIAL 07/19/2013 CHIKA JO APRRENUKA HerronCY N 785.1 PALPITATIONS 07/19/2013 ANDREW LEDESMA DOA K 250.00 DIABETES II CONTROLLED (UNCOMPLICATED) 07/19/2013 ANDREW LEDESMA DOA K 401.9 ESSENTIAL HYPERTENSION 07/19/2013 ANNEL LEDESMA DO K 785.1 PALPITATIONS 07/19/2013 JOEL CM APRN 250.00 DIABETES II CONTROLLED (UNCOMPLICATED ) 07/19/2013 JOEL CM APRN 401.9 ESSENTIAL HYPERTENSION 07/19/2013 JOEL CM APRN 785.1 PALPITATIONS 07/19/2013 JOEL CM APRN 250.00 DIABETES II CONTROLLED (UNCOMPLICATED ) 07/19/2013 JOEL CM APRN 401.9 ESSENTIAL HYPERTENSION 07/19/2013 JOEL CM APRN 785.1 PALPITATIONS 07/19/2013 JOEL CM APRN 250.00 DIABETES II CONTROLLED (UNCOMPLICATED ) 07/19/2013 JOEL CM APRN 401.9 ESSENTIAL HYPERTENSION 07/19/2013 JOEL CM APRN 785.1 PALPITATIONS 07/19/2013 JOEL CM APRN 250.00 DIABETES II CONTROLLED (UNCOMPLICATED ) 07/19/2013 JOEL CM APRN 401.9 ESSENTIAL HYPERTENSION 07/19/2013 JOEL CM APRN 785.1 PALPITATIONS 07/19/2013 JOEL CM APRN 250.00 DIABETES II CONTROLLED (UNCOMPLICATED ) 07/19/2013 JOEL CM APRN 401.9 ESSENTIAL HYPERTENSION 07/19/2013 JOEL CM APRN 785.1 PALPITATIONS 07/26/2013 FLORY CONNELL FACC, NURYS FACP CCDS Ot 250.00 DIAB TASHIA WO COMPL, TYPE II OR UNSPEC TY 07/26/2013 FLORY CONNELL FACC, ALI FACP CCDS Ot 272.4 HYPERLIPIDEMIA NEC/NOS 07/26/2013 FLORY CONNELL FACC, ALI FACP CCDS Ot 401.9 HYPERTENSION NOS 07/26/2013 FLORY CONNELL FACC, ALI FACP CCDS Ot 414.01 CORONARY ATHEROSCLEROSIS OF [place] CORON 07/26/2013 NURYS RUTH MD, FACC FACP CCDS Ot 414.4 CORONARY ATHEROSCLEROSIS DUE TO [place]CIF[place] 07/26/2013 FLORY CONNELL FACC, ALI FACP CCDS Ot 786.59 CHEST PAIN NEC 07/26/2013 FLORY CONNELL FACC, NURYS FACP CCDS Ot V17.3 FAM HX-ISCHEM HEART DIS 07/26/2013 FLORY CONNELL FACC, NURYS FACP CCDS Ot V58.67 LONG-TERM (CURRENT) USE OF INSULIN 07/26/2013 FLORY CONNELL FACC ALI FACP CCDS Ot V58.69 OT MED,LT,CURRENT USE 09/06/2013 BHARGAV ROJAS APRN 466.0 ACUTE BRONCHITIS 09/06/2013 BHARGAV ROJAS APRN 478.19 OTHER DISEASES OF NASAL CAVITY AND SINUSES 09/06/2013 BHARGAV ROJAS APRN N 786.2 COUGH 09/06/2013 ANNEL LEDESMA DO K 466.0 ACUTE BRONCHITIS 09/06/2013 ANNEL LEDESMA DO 478.19 OTHER DISEASES OF NASAL CAVITY AND SINUSES 09/06/2013 ANNEL LEDESMA DO K 786.2 COUGH 09/06/2013 JOEL CM APRN 466.0 ACUTE BRONCHITIS 09/06/2013 JOEL CM APRN 478.19 OTHER DISEASES OF NASAL CAVITY AND SINUSES 09/06/2013 JOEL CM APRN 786.2 COUGH 09/06/2013 JOEL CM APRN 466.0 ACUTE BRONCHITIS 09/06/2013 JOEL CM APRN 478.19 OTHER DISEASES OF NASAL CAVITY AND SINUSES 09/06/2013 JOEL CM APRN 786.2 COUGH 09/06/2013 JOEL CM APRN 466.0 ACUTE BRONCHITIS 09/06/2013 JOEL CM APRN 478.19 OTHER DISEASES OF NASAL CAVITY AND SINUSES 09/06/2013 JOEL CM APRN 786.2 COUGH 09/06/2013 JOEL CM APRN 466.0 ACUTE BRONCHITIS 09/06/2013 JOEL CM APRN 478.19 OTHER DISEASES OF NASAL CAVITY AND SINUSES 09/06/2013 JOEL CM APRN 786.2 COUGH 09/06/2013 JOEL CM APRN 466.0 ACUTE BRONCHITIS 09/06/2013 JOEL CM APRN 478.19 OTHER DISEASES OF NASAL CAVITY AND SINUSES 09/06/2013 JOEL CM APRN 786.2 COUGH 10/09/2013 ANNEL LEDESMA DO K 244.9 HYPOTHYROIDISM 10/09/2013 JOEL CM APRN 244.9 HYPOTHYROIDISM 10/09/2013 JOEL CM APRN 244.9 HYPOTHYROIDISM 10/09/2013 JOEL CM APRN 244.9 HYPOTHYROIDISM 10/09/2013 JOEL CM APRN 244.9 HYPOTHYROIDISM 10/09/2013 JOEL CM APRN 244.9 HYPOTHYROIDISM 10/30/2013 TRAVIS WOO APRN Ot 787.01 NAUSEA WITH VOMITING 12/18/2013 TRAVIS WOO APRN Ot 719.47 JOINT PAIN-ANKLE 12/18/2013 TRAVIS WOO APRN Ot 845.00 SPRAIN OF ANKLE NOS 12/18/2013 TRAVIS WOO APRN Ot E000.8 OTHER EXTERNAL CAUSE STATUS 12/18/2013 TRAVIS WOO APRN Ot E927.0 OVEREXERTION FROM SUDDEN STRENUOUS MOVEM 01/23/2014 JOEL CM APRN V14.9 PERSONAL HISTORY OF ALLERGY TO UNSPECIFIED MEDICINAL AGENT 01/23/2014 JOEL CM APRN V14.9 PERSONAL HISTORY OF ALLERGY TO UNSPECIFIED MEDICINAL AGENT 03/13/2014 FLORY CONNELL FACC, ALI FACP CCDS Ot 250.00 DIAB TASHIA WO COMPL, TYPE II OR UNSPEC TY 03/13/2014 FLORY CONNELL FACC, NURYS FACP CCDS Ot 272.4 HYPERLIPIDEMIA NEC/NOS 03/13/2014 FLORY CONNELL FACC, NURYS FACP CCDS Ot 401.9 HYPERTENSION NOS 03/13/2014 FLORY CONNELL FACC, NURYS FACP CCDS Ot 414.01 CORONARY ATHEROSCLEROSIS OF [place] CORON 03/13/2014 FLORY CONNELL FACC, NURYS FACP CCDS Ot 414.4 CORONARY ATHEROSCLEROSIS DUE TO CALCIFIE 03/13/2014 FLORY CONNELL FACC, ALI FACP CCDS Ot 441.4 ABDOM AORTIC ANEURYSM 03/13/2014 FLORY CONNELL FACC, NURYS FACP CCDS Ot 786.50 CHEST PAIN NOS 03/13/2014 FLORY CONNELL FACC, NURYS FACP CCDS Ot V15.82 HISTORY OF TOBACCO USE 03/13/2014 FLORY CONNELL FACC, NURYS FACP CCDS Ot V45.82 PERCUTANEOUS TRANSLUM CORON ANGIOPLASTY 03/13/2014 FLORY CONNELL FACC, NURYS FACP CCDS Ot V58.67 LONG-TERM (CURRENT) USE OF INSULIN 03/13/2014 FLORY CONNELL FACC, NURYS FACP CCDS Ot V58.69 OTH MED,LT,CURRENT USE 03/22/2014 BAIMA, SANYA L HOUSEKEEPING WORKER Ot 272.4 03/22/2014 BAIMA, SANYA L HOUSEKEEPING WORKER Ot 790.5 03/22/2014 BAIMA, SANYA L HOUSEKEEPING WORKER Ot 272.4 03/22/2014 BAIMA, SANYA L HOUSEKEEPING WORKER Ot 790.5 03/22/2014 BAIMA, SANYA L HOUSEKEEPING WORKER Ot 272.4 03/22/2014 BAIMA, SANYA L HOUSEKEEPING WORKER Ot 790.5 05/28/2014 BAIMA, SANYA L HOUSEKEEPING WORKER Ot 272.4 05/28/2014 BAIMA, SANYA L HOUSEKEEPING WORKER Ot 790.5 05/28/2014 BAIMA, SANYA L HOUSEKEEPING WORKER Ot 272.4 05/28/2014 BAIMA, SANYA L HOUSEKEEPING WORKER Ot 790.5 06/26/2014 BAIMA, SANYA L HOUSEKEEPING WORKER Ot 272.4 06/26/2014 BAIMA, SANYA L HOUSEKEEPING WORKER Ot 790.5 06/26/2014 BAIMA, SANYA L HOUSEKEEPING WORKER Ot 272.4 06/26/2014 BAIMA, SANYA L HOUSEKEEPING WORKER Ot 790.5 06/26/2014 BAIMA, SANYA L HOUSEKEEPING WORKER Ot 272.4 06/26/2014 BAIMA, SANYA L HOUSEKEEPING WORKER Ot 790.5 06/26/2014 BAIMA, SANYA L HOUSEKEEPING WORKER Ot 272.4 06/26/2014 BAIMA, SANYA L HOUSEKEEPING WORKER Ot 790.5 10/09/2014 BAIMA, SANYA L HOUSEKEEPING WORKER Ot 272.4 10/09/2014 BAIMA, SANYA L HOUSEKEEPING WORKER Ot 790.5 10/09/2014 BAIMA, SANYA L HOUSEKEEPING WORKER Ot 272.4 10/09/2014 BAIMA, SANYA L HOUSEKEEPING WORKER Ot 790.5 10/09/2014 TRAVIS WOO INSPECTOR PRINTED CIRCUIT BOARDS Ot 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, LOCALIZED 10/09/2014 TRAVIS WOO INSPECTOR PRINTED CIRCUIT BOARDS Ot 525.9 DENTAL DISORDER NOS 01/22/2015 BAIMA, SANYA L HOUSEKEEPING WORKER Ot 272.4 01/22/2015 BAIMA, SANYA L HOUSEKEEPING WORKER Ot 790.5 01/22/2015 BAIMA, SANYA L HOUSEKEEPING WORKER Ot 272.4 01/22/2015 BAIMA, SANYA L HOUSEKEEPING WORKER Ot 790.5 02/13/2015 HUMBERTO CUI HOUSEKEEPING WORKER Ot Z12.31 02/13/2015 BAIMA, SANYA L HOUSEKEEPING WORKER Ot E78.5 02/13/2015 BAIMA, SANYA L HOUSEKEEPING WORKER Ot I10 02/13/2015 BAIMA, SANYA L HOUSEKEEPING WORKER Ot I25.10 02/19/2015 HUMBERTO CUI W HOUSEKEEPING WORKER Ot Z12.31 02/19/2015 HUMBERTO CUI W HOUSEKEEPING WORKER Ot Z12.31 02/19/2015 BAIMA, SANYA L HOUSEKEEPING WORKER Ot E78.5 02/19/2015 BAIMA, SANYA L HOUSEKEEPING WORKER Ot I10 02/19/2015 BAIMA, SANYA L HOUSEKEEPING WORKER Ot I25.10 11/28/2015 BAIMA, SANYA L HOUSEKEEPING WORKER Ot 272.4 HYPERLIPIDEMIA NEC/NOS 11/28/2015 BAIMA, SANYA L HOUSEKEEPING WORKER Ot 790.5 ABN SERUM ENZY LEVEL NEC 11/28/2015 BAIMA, SANYA L HOUSEKEEPING WORKER Ot 272.4 HYPERLIPIDEMIA NEC/NOS 11/28/2015 BAIMA, SANYA L HOUSEKEEPING WORKER Ot 790.5 ABN SERUM ENZY LEVEL NEC 11/28/2015 HUMBERTO CUI HOUSEKEEPING WORKER Ot Z12.31 ENCNTR SCREEN MAMMOGRAM FOR MALIGNANT NE 11/28/2015 BAIMA, SANYA L HOUSEKEEPING WORKER Ot E78.5 HYPERLIPIDEMIA, UNSPECIFIED 11/28/2015 BAIMA, SANYA L HOUSEKEEPING WORKER Ot I10 ESSENTIAL (PRIMARY) HYPERTENSION 11/28/2015 BAIMA, SANYA L HOUSEKEEPING WORKER Ot I25.10 ATHSCL HEART DISEASE OF [place] CORONARY 11/28/2015 BAIMA, SANYA L HOUSEKEEPING WORKER Ot 272.4 HYPERLIPIDEMIA NEC/NOS 11/28/2015 BAIMA, SANYA L HOUSEKEEPING WORKER Ot 790.5 ABN SERUM ENZY LEVEL NEC 11/28/2015 BAIMA, SANYA L HOUSEKEEPING WORKER Ot 272.4 HYPERLIPIDEMIA NEC/NOS 11/28/2015 BAIMA, SANYA L HOUSEKEEPING WORKER Ot 790.5 ABN SERUM ENZY LEVEL NEC 11/28/2015 HUMBERTO CUI W HOUSEKEEPING WORKER Ot Z12.31 ENCNTR SCREEN MAMMOGRAM FOR MALIGNANT NE 11/28/2015 BAIMA, SANYA L HOUSEKEEPING WORKER Ot E78.5 HYPERLIPIDEMIA, UNSPECIFIED 11/28/2015 BAIMA, SANYA L HOUSEKEEPING WORKER Ot I10 ESSENTIAL (PRIMARY) HYPERTENSION 11/28/2015 BAIMA, SANYA L HOUSEKEEPING WORKER Ot I25.10 ATHSCL HEART DISEASE OF [place] CORONARY 11/29/2015 FLORY CONNELL FACC, NURYS FACP CCDS Ot M79.89 OTHER SPECIFIED SOFT TISSUE DISORDERS 12/06/2015 FLORY CONNELL FACC, NURYS FACP CCDS Ot E11.9 TYPE 2 DIABETES MELLITUS WITHOUT COMPLIC 12/06/2015 FLORY CONNELL FACC, NURYS FACP CCDS Ot E78.4 OTHER HYPERLIPIDEMIA 12/06/2015 FLORY CONNELL FACC, ALI FACP CCDS Ot I10 ESSENTIAL (PRIMARY) HYPERTENSION 12/06/2015 FLORY CONNELL FACC, ALI FACP CCDS Ot I25.10 ATHSCL HEART DISEASE OF [place] CORONARY 12/06/2015 FLORY CONNELL FACC, NURYS FACP CCDS Ot R00.2 PALPITATIONS 12/06/2015 FLORY CONNELL FACC, NURYS FACP CCDS Ot E11.9 TYPE 2 DIABETES MELLITUS WITHOUT COMPLIC 12/06/2015 FLORY CONNELL FACC, NURYS FACP CCDS Ot E78.4 OTHER HYPERLIPIDEMIA 12/06/2015 FLORY MD FACC, ALI FACP CCDS Ot I10 ESSENTIAL (PRIMARY) HYPERTENSION 12/06/2015 FLORY CONNELL FACC, ALI FACP CCDS Ot I25.10 ATHSCL HEART DISEASE OF [place] CORONARY 12/06/2015 FLORY CONNELL FACC, ALI FACP CCDS Ot R00.2 PALPITATIONS 12/11/2015 FLORY CONNELL FACC, ALI FACP CCDS Ot E11.9 TYPE 2 DIABETES MELLITUS WITHOUT COMPLIC 12/11/2015 FLORY CONNELL FACC, ALI FACP CCDS Ot E78.4 OTHER HYPERLIPIDEMIA 12/11/2015 FLORY CONNELL FACC, ALI FACP CCDS Ot I10 ESSENTIAL (PRIMARY) HYPERTENSION 12/11/2015 FLORY CONNELL FACC, ALI FACP CCDS Ot I25.10 ATHSCL HEART DISEASE OF [place] CORONARY 12/11/2015 FLORY CONNELL FACC, ALI FACP CCDS Ot I73.9 PERIPHERAL VASCULAR DISEASE, UNSPECIFIED 12/11/2015 FLORY CONNELL FACC, ALI FACP CCDS Ot M79.89 OTHER SPECIFIED SOFT TISSUE DISORDERS 12/11/2015 FLORY CONNELL FACC, ALI FACP CCDS Ot R00.2 PALPITATIONS 12/18/2015 FLORY CONNELL FACC, ALI FACP CCDS Ot E11.9 TYPE 2 DIABETES MELLITUS WITHOUT COMPLIC 12/18/2015 FLORY CONNELL FACC, ALI FACP CCDS Ot E78.4 OTHER HYPERLIPIDEMIA 12/18/2015 FLORY CONNELL FACC, ALI FACP CCDS Ot I10 ESSENTIAL (PRIMARY) HYPERTENSION 12/18/2015 FLORY CONNELL FACC, ALI FACP CCDS Ot I25.10 ATHSCL HEART DISEASE OF [place] CORONARY 12/18/2015 FLORY CONNELL FACC, ALI FACP CCDS Ot R00.2 PALPITATIONS 12/18/2015 FLORY CONNELL FACC, ALI FACP CCDS Ot E11.9 TYPE 2 DIABETES MELLITUS WITHOUT COMPLIC 12/18/2015 FLORY CONNELL FACC, ALI FACP CCDS Ot E78.4 OTHER HYPERLIPIDEMIA 12/18/2015 FLORY CAPPSC, ALI FACP CCDS Ot I10 ESSENTIAL (PRIMARY) HYPERTENSION 12/18/2015 FLORY CAPPSC, ALI FACP CCDS Ot I25.10 ATHSCL HEART DISEASE OF [place] CORONARY 12/18/2015 FLORY CONNELL FACC, ALI FACP CCDS Ot R00.2 PALPITATIONS 12/27/2015 FLORY CONNELL FACC, ALI FACP CCDS Ot E11.9 TYPE 2 DIABETES MELLITUS WITHOUT COMPLIC 12/27/2015 FLORY CONNELL FACC, ALI FACP CCDS Ot E78.4 OTHER HYPERLIPIDEMIA 12/27/2015 FLORY CONNELL FACC, ALI FACP CCDS Ot I10 ESSENTIAL (PRIMARY) HYPERTENSION 12/27/2015 FLORY CONNELL FACC, ALI FACP CCDS Ot I25.10 ATHSCL HEART DISEASE OF [place] CORONARY 12/27/2015 FLORY CONNELL FACC, ALI FACP CCDS Ot I73.9 PERIPHERAL VASCULAR DISEASE, UNSPECIFIED 12/27/2015 FLORY CONNELL FACC, ALI FACP CCDS Ot M79.89 OTHER SPECIFIED SOFT TISSUE DISORDERS 12/27/2015 FLORY CONNELL FACC, ALI FACP CCDS Ot R00.2 PALPITATIONS 12/30/2015 FLORY CONNELL FACC, ALI FACP CCDS Ot E11.9 TYPE 2 DIABETES MELLITUS WITHOUT COMPLIC 12/30/2015 FLORY CONNELL FACC, NURYS FACP CCDS Ot E78.4 OTHER HYPERLIPIDEMIA 12/30/2015 FLORY CONNELL FACC, ALI FACP CCDS Ot I10 ESSENTIAL (PRIMARY) HYPERTENSION 12/30/2015 FLORY CONNELL FACC, ALI FACP CCDS Ot I25.10 ATHSCL HEART DISEASE OF [place] CORONARY 12/30/2015 FLORY CONNELL FACC, ALI FACP CCDS Ot R00.2 PALPITATIONS 12/30/2015 FLORY CONNELL FACC, ALI FACP CCDS Ot E11.9 TYPE 2 DIABETES MELLITUS WITHOUT COMPLIC 12/30/2015 FLORY CONNELL FACC, NURYS FACP CCDS Ot E78.4 OTHER HYPERLIPIDEMIA 12/30/2015 FLORY CONNELL FACC, ALI FACP CCDS Ot I10 ESSENTIAL (PRIMARY) HYPERTENSION 12/30/2015 FLORY CONNELL FACC, ALI FACP CCDS Ot I25.10 ATHSCL HEART DISEASE OF [place] CORONARY 12/30/2015 FLORY CONNELL FACC, ALI FACP CCDS Ot R00.2 PALPITATIONS 01/30/2016 FLORY CONNELL FACC, ALI FACP CCDS Ot E11.9 TYPE 2 DIABETES MELLITUS WITHOUT COMPLIC 01/30/2016 FLORY CONNELL FACC, ALI FACP CCDS Ot E78.5 HYPERLIPIDEMIA, UNSPECIFIED 01/30/2016 FLORY CONNELL FACC, ALI FACP CCDS Ot I10 ESSENTIAL (PRIMARY) HYPERTENSION 01/30/2016 FLORY CONNELL [facility], ALI FACP CCDS Ot I73.9 PERIPHERAL VASCULAR DISEASE, UNSPECIFIED 01/30/2016 FLORY CONNELL [facility], ALI FACP CCDS Ot K21.9 GASTRO-ESOPHAGEAL REFLUX DISEASE WITHOUT 01/30/2016 FLORY CONNELL [facility], ALI FACP CCDS Ot R00.2 PALPITATIONS 01/30/2016 FLORY CONNELL [facility], ALI FACP CCDS Ot Z79.02 USP (CURRENT) USE OF ANTITHROMBOTI 01/30/2016 FLORY CONNELL [facility], ALI FACP CCDS Ot 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 01/30/2016 FLORY CONNELL [facility], ALI FACP CCDS Ot Z79.899 OTHER USP (CURRENT) DRUG THERAPY 02/20/2016 FLORY CONNELL [facility], ALI FACP CCDS Ot E11.9 TYPE 2 DIABETES MELLITUS WITHOUT COMPLIC 02/20/2016 FLORY CONNELL [facility], ALI FACP CCDS Ot E78.5 HYPERLIPIDEMIA, UNSPECIFIED 02/20/2016 FLORY CONNELL [facility], ALI FACP CCDS Ot I10 ESSENTIAL (PRIMARY) HYPERTENSION 02/20/2016 FLORY CONNELL [facility], ALI FACP CCDS Ot I73.9 PERIPHERAL VASCULAR DISEASE, UNSPECIFIED 02/20/2016 FLORY CONNELL [facility], ALI FACP CCDS Ot K21.9 GASTRO-ESOPHAGEAL REFLUX DISEASE WITHOUT 02/20/2016 FLORY CONNELL [facility], ALI FACP CCDS Ot R00.2 PALPITATIONS 02/20/2016 FLORY CONNELL [facility], ALI FACP CCDS Ot Z79.02 USP (CURRENT) USE OF ANTITHROMBOTI 02/20/2016 FLORY CONNELL [facility], ALI FACP CCDS Ot 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 02/20/2016 FLORY CONNELL [facility], ALI FACP CCDS Ot Z79.899 OTHER USP (CURRENT) DRUG THERAPY 03/12/2016 SANYA CASTILLO HOUSEKEEPING WORKER Ot 272.4 HYPERLIPIDEMIA NEC/NOS 03/12/2016 SANYA CASTILLO HOUSEKEEPING WORKER Ot 790.5 ABN SERUM ENZY LEVEL NEC 03/12/2016 SANYA CASTILLO HOUSEKEEPING WORKER Ot 272.4 HYPERLIPIDEMIA NEC/NOS 03/12/2016 SANYA CASTILLO HOUSEKEEPING WORKER Ot 790.5 ABN SERUM ENZY LEVEL NEC 03/12/2016 HUMBERTO CUI HOUSEKEEPING WORKER Ot Z12.31 ENCNTR SCREEN MAMMOGRAM FOR MALIGNANT NE 03/12/2016 SANYA CASTILLO HOUSEKEEPING WORKER Ot E78.5 HYPERLIPIDEMIA, UNSPECIFIED 03/12/2016 SANYA CASTILLO HOUSEKEEPING WORKER Ot I10 ESSENTIAL (PRIMARY) HYPERTENSION 03/12/2016 SANYA CASTILLO HOUSEKEEPING WORKER Ot I25.10 ATHSCL HEART DISEASE OF [place] CORONARY 03/12/2016 FLORY CONNELL FACC, ALI FACP CCDS Ot E11.9 TYPE 2 DIABETES MELLITUS WITHOUT COMPLIC 03/12/2016 FLORY CONNELL FACC, ALI FACP CCDS Ot E78.4 OTHER HYPERLIPIDEMIA 03/12/2016 FLORY CONNELL FACC, ALI FACP CCDS Ot I10 ESSENTIAL (PRIMARY) HYPERTENSION 03/12/2016 FLORY CONNELL FACC, ALI FACP CCDS Ot I25.10 ATHSCL HEART DISEASE OF [place] CORONARY 03/12/2016 FLORY CONNELL FACC, ALI FACP CCDS Ot I73.9 PERIPHERAL VASCULAR DISEASE, UNSPECIFIED 03/12/2016 FLORY CONNELL FACC, ALI FACP CCDS Ot M79.89 OTHER SPECIFIED SOFT TISSUE DISORDERS 03/12/2016 FLORY CONNELL FACC, ALI FACP CCDS Ot R00.2 PALPITATIONS 03/12/2016 FOLRY CONNELL FACC, ALI FACP CCDS Ot E11.9 TYPE 2 DIABETES MELLITUS WITHOUT COMPLIC 03/12/2016 FLORY CONNELL FACC, ALI FACP CCDS Ot E78.4 OTHER HYPERLIPIDEMIA 03/12/2016 FLORY CONNELL FACC, NURYS FACP CCDS Ot I10 ESSENTIAL (PRIMARY) HYPERTENSION 03/12/2016 FLORY CONNELL FACC, ALI FACP CCDS Ot I25.10 ATHSCL HEART DISEASE OF [place] CORONARY 03/12/2016 FLORY CONNELL FACC, ALI FACP CCDS Ot R00.2 PALPITATIONS 03/12/2016 FLORY CONNELL FACC, ALI FACP CCDS Ot E11.9 TYPE 2 DIABETES MELLITUS WITHOUT COMPLIC 03/12/2016 FLORY CONNELL FACC, ALI FACP CCDS Ot E78.4 OTHER HYPERLIPIDEMIA 03/12/2016 FLORY CONNELL FACC, ALI FACP CCDS Ot I10 ESSENTIAL (PRIMARY) HYPERTENSION 03/12/2016 FLORY CONNELL FACC, ALI FACP CCDS Ot I25.10 ATHSCL HEART DISEASE OF [place] CORONARY 03/12/2016 FLORY CONNELL FACC, ALI FACP CCDS Ot R00.2 PALPITATIONS 03/12/2016 FLORY CONNELL FACC, ALI FACP CCDS Ot E11.9 TYPE 2 DIABETES MELLITUS WITHOUT COMPLIC 03/12/2016 FLORY CONNELL FACC, ALI FACP CCDS Ot E78.4 OTHER HYPERLIPIDEMIA 03/12/2016 FLORY CONNELL FACC, ALI FACP CCDS Ot I10 ESSENTIAL (PRIMARY) HYPERTENSION 03/12/2016 FLORY CONNELL FACC, ALI FACP CCDS Ot I25.10 ATHSCL HEART DISEASE OF [place] CORONARY 03/12/2016 FLORY CONNELL FACC, ALI FACP CCDS Ot I73.9 PERIPHERAL VASCULAR DISEASE, UNSPECIFIED 03/12/2016 FLORY CONNELL FACC, ALI FACP CCDS Ot M79.89 OTHER SPECIFIED SOFT TISSUE DISORDERS 03/12/2016 FLORY CONNELL FACC, ALI FACP CCDS Ot R00.2 PALPITATIONS 03/12/2016 FLORY OCNNELL FACC, ALI FACP CCDS Ot E11.9 TYPE 2 DIABETES MELLITUS WITHOUT COMPLIC 03/12/2016 FLORY CONNELL FACC, ALI FACP CCDS Ot E78.5 HYPERLIPIDEMIA, UNSPECIFIED 03/12/2016 FLORY CONNELL FACC, ALI FACP CCDS Ot I10 ESSENTIAL (PRIMARY) HYPERTENSION 03/12/2016 FLORY CONNELL FACC, ALI FACP CCDS Ot I73.9 PERIPHERAL VASCULAR DISEASE, UNSPECIFIED 03/12/2016 FLORY CONNELL FACC, ALI FACP CCDS Ot K21.9 GASTRO-ESOPHAGEAL REFLUX DISEASE WITHOUT 03/12/2016 FLORY CONNELL FACC, ALI FACP CCDS Ot R00.2 PALPITATIONS 03/12/2016 FLORY CONNELL FACC, ALI FACP CCDS Ot Z79.02 BUSINESS MANAGEMENT SPECIALIST (CURRENT) USE OF ANTITHROMBOTI 03/12/2016 FLORY CONNELL FACC, NURYS FACP CCDS Ot 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 03/12/2016 FLORY CONNELL FACC, ALI FACP CCDS Ot Z79.899 OTHER BUSINESS MANAGEMENT SPECIALIST (CURRENT) DRUG THERAPY 03/23/2016 FLORY CONNELL FACC, ALI FACP CCDS Ot E11.9 TYPE 2 DIABETES MELLITUS WITHOUT COMPLIC 03/23/2016 FLROY CONNELL FACC, NURYS FACP CCDS Ot E78.4 OTHER HYPERLIPIDEMIA 03/23/2016 FLORY CONNELL FACC, ALI FACP CCDS Ot I10 ESSENTIAL (PRIMARY) HYPERTENSION 03/23/2016 FLORY CONNELL FACC, ALI FACP CCDS Ot I25.10 ATHSCL HEART DISEASE OF [place] CORONARY 03/23/2016 FLORY CONNELL FACC, ALI FACP CCDS Ot I73.9 PERIPHERAL VASCULAR DISEASE, UNSPECIFIED 03/23/2016 FLORY CONNELL FACC, ALI FACP CCDS Ot M79.89 OTHER SPECIFIED SOFT TISSUE DISORDERS 03/23/2016 [facility]I FACP CCDS Ot R00.2 PALPITATIONS 03/24/2016 [facility] FACP CCDS Ot E11.9 TYPE 2 DIABETES MELLITUS WITHOUT COMPLIC 03/24/2016 FLORY CONNELL FACC, ALI FACP CCDS Ot E78.4 OTHER HYPERLIPIDEMIA 03/24/2016 FLORY CONNELL FACC, ALI FACP CCDS Ot I10 ESSENTIAL (PRIMARY) HYPERTENSION 03/24/2016 FLORY CONNELL FACC, ALI FACP CCDS Ot I25.10 ATHSCL HEART DISEASE OF [place] CORONARY 03/24/2016 FLORY CONNELL [facility], ALI FACP CCDS Ot I73.9 PERIPHERAL VASCULAR DISEASE, UNSPECIFIED 03/24/2016 FLORY CONNELL [facility], ALI FACP CCDS Ot M79.89 OTHER SPECIFIED SOFT TISSUE DISORDERS 03/24/2016 FLORY CAPPS, ALI FACP CCDS Ot R00.2 PALPITATIONS Procedures Code Description [place] [address] A1C (IN-HOUSE) 49288 MICRO ALBUMIN-IN HOUSE 03/14/2013 00144 GLUCOSE FINGER STICK 03/24/2013 42706 ROUTINE VENIPUNCTURE 03/24/2013 26450 CMP 03/24/2013 31620 LIPID PANEL 03/24 THYANA THYROID ANALYZER 03/24/2013 63514 ROUTINE VENIPUNCTURE 04/04/2013 99904 UA LONG DIP 04/04 63197 CPK 04/04/2013 94371 CRP 04/04/2013 INTERNAL JARVIS ALMONTE 04/04/2013 CARDIOLOG NURYS RUTH 04/25/2013 69672 MICRO ALBUMIN-IN HOUSE 07/10/2013 45612 A1C (IN-HOUSE) 71342 LEFT HEART CATH 07/25/2013 32022 OXIMETRY 2013 89973 A1C (IN-HOUSE) 16557 ROUTINE VENIPUNCTURE 10/09/2013 70558 CMP 10/09/2013 01388 LIPID PANEL 10/09 22999 CBC 10/09/2013 THYANA THYROID ANALYZER 10/09/2013 32538 ROUTINE VENIPUNCTURE 10/10/2013 75084 CALCIUM IONIZED 10/10/2013 48831 PTH (intact) (ORDER ONLY) 10/10/2013 98982 ROUTINE VENIPUNCTURE 10/11/2013 97233 PTH (intact) (ORDER ONLY) 10/11/2013 15706 EKG, TRACING (IN-HOUSE) 10/11/2013 96939 OXIMETRY 2013 [id number] CALCIUM (RESULT ONLY) 10/12/2013 8247124 PTH INTACT EDUARDO (RESULT ONLY) 10/12/2013 17413 HEPATITIS PROFILE 10/27/2013 27433 AMYLASE 2013 90036 GGT 10/27/2013 29243 LIPASE 2013 86452 ROUTINE VENIPUNCTURE 10/27/2013 62095 CMP 10/27/2013 26553 LIPID PANEL 10/27 26978 A1C (IN-HOUSE) ENDOCRINNicolás GREENE VALERIY 01/24/2014 93752 CBC 01/25/2014 50698 ROUTINE VENIPUNCTURE 01/25/2014 18339 CMP 01/25/2014 98931 LIPID PANEL 01/25 44359 T4 FREE 2013 14919 TSH 01/25/2014 48036 FREE ASSAY (FT-3) 01/25/2014 Results Encounters ACCT No. Visit Date/Time Discharge Status Pt. Type Provider Facility Loc./Unit Complaint [id number] 01/25/2014 09:59:00 01/25/2014 23: 59:59 CLS Outpatient JOEL CM APRN [id number] 01/23/2014 14:04:00 01/23/2014 23: 59:59 CLS Outpatient JOEL CM APRN [id number] 10/27/2013 08:47:00 10/27/2013 23: 59:59 CLS Outpatient JOEL CM APRN [id number] 10/11/2013 10:20:00 10/11/2013 23: 59:59 CLS Outpatient JOEL CM APRN [id number] 10/10/2013 08:03:00 10/10/2013 23: 59:59 CLS Outpatient CM JOEL GHOSH [id number] 10/09/2013 08:45:00 10/09/2013 23: 59:59 CLS Outpatient ANNEL LEDESMA DO [id number] 09/06/2013 07:52:00 09/06/2013 23: 59:59 CLS Outpatient BHARGAV ROJAS APRN Gopal [id number] 07/19/2013 08:40:00 07/19/2013 23: 59:59 CLS Outpatient ANNEL LEDESMA DO [id number] 07/10/2013 14:32:00 07/10/2013 23: 59:59 CLS Outpatient ANNEL LEDSEMA DO [id number] 05/23/2013 13:12:00 05/23/2013 23: 59:59 CLS Outpatient MAYRA MONTAÑO MD [id number] 04/25/2013 14:18:00 04/25/2013 23: 59:59 CLS Outpatient ANNEL LEDESMA DO [id number] 04/04/2013 10:39:00 04/04/2013 23: 59:59 CLS Outpatient ANNEL LEDESMA DO [id number] 03/24/2013 08:38:00 03/24/2013 23: 59:59 CLS Outpatient ANNEL LEDESMA DO [id number] 03/14/2013 11:33:00 03/14/2013 23: 59:59 CLS Outpatient ANNEL LEDESMA DO
--- OUTSIDE RECORDS SUMMARY | 2016-08-18 09:27 | XMS REPORT | Continuity of Care Document ---
Author Author [facility] Address Unknown Phone Unavailable Allergies Active Description Code Type Severity Reaction Onset Reported/Identified Relationship to Patient Clinical Status Yes albuterol Drug Allergy N/A N/A 03/14/2013 Yes amitriptyline Drug Allergy N/A N/A 03/14/2013 Yes Levaquin Drug Allergy N/A N/A 03/14/2013 Yes metformin Drug Allergy N/A N/A 03/14/2013 Yes morphine Drug Allergy N/A N/A 03/14/2013 Yes Novolog Mix 70-30 Drug Allergy N/A N/A 03/14/2013 Yes Mhlggmp-Zlw-Imn Reductase Inhibitors Drug Allergy N/A N/ A [...] Drug Allergy N/A N/A 04/04/2013 Yes metformin [id number] Drug Allergy Moderate N/A 07/25/2013 Yes Llztwkj-Roz-Lfq Reductase Inhibitor [id number] Drug Allergy Moderate N/A 07/25/2013 Yes acetaminophen [id number] Drug Allergy Mild NAUSEA 07/25/2013 Yes albuterol [id number] Drug Allergy Mild N/A 07/25/2013 Yes bupropion [id number] Drug Allergy Mild N/A 07/25/2013 Yes clonazepam [id number] Drug Allergy Mild N/A 07/25/2013 Yes ezetimibe [id number] Drug Allergy Mild NAUSEA 07/25/2013 Yes gabapentin [id number] Drug Allergy Mild N/A 07/25/2013 Yes insulin aspart [id number] Drug Allergy Mild N/A 07/25/2013 Yes insulin aspart protamine human [id number] Drug Allergy Mild N/A 07/25/2013 Yes insulin detemir [id number] Drug Allergy Mild N/A 07/25/2013 Yes levofloxacin [id number] Drug Allergy Mild N/A 07/25/2013 Yes morphine [id number] Drug Allergy Mild N/A 07/25/2013 Yes oxycodone [id number] Drug Allergy Mild NAUSEA 07/25/2013 Yes Beta-Blockers (Beta-Adrenergic Bloc [id number] Drug Allergy Moderate chest tightness 10/30/2013 Yes pregabalin [id number] Drug Allergy Mild Dizzy 10/30/2013 Yes Raymundo [...] ANNEL K 300.00 ANXIETY 11/24/2007 FARR CASHERO FLIGHT CREW TIME CLERK, BHARGAV N 250.02 DIABETES MELLITUS TYPE 2 - UNCOMPLICATED, UNCONTROLLED 11/24/2007 FARR CASHERO FLIGHT CREW TIME CLERK, BHARGAV N 251.1 HYPERINSULINISM 11/24/2007 FARR CASHRED FLIGHT CREW TIME CLERK, BHARGAV N 300.00 ANXIETY 11/24/2007 CALLIE BONDS [...] K 780.60 FEVER, UNSPECIFIED 12/13/2007 FARR CASHERO FLIGHT CREW TIME CLERK, BHARGAV N 401.1 ESSENTIAL HYPERTENSION BENIGN 12/13/2007 FARR CASHERO FLIGHT CREW TIME CLERK, BHARGAV N 465.9 UPPER RESPIRATORY INFECTION 12/13/2007 FARR CASHERO FLIGHT CREW TIME CLERK, BHARGAV N 780.60 FEVER, UNSPECIFIED 12/13/2007 LEDESMA DO, ANNEL K 401.1 ESSENTIAL HYPERTENSION BENIGN 12/13/2007 LEDESMA DO, ANNEL K 465.9 UPPER RESPIRATORY INFECTION 12/13/2007 LEDESMA DO, ANNEL K 780.60 FEVER, UNSPECIFIED 12/13/2007 CM FLIGHT CREW TIME CLERK, JOEL J 401.1 ESSENTIAL HYPERTENSION BENIGN 12/13/2007 [...] CM APRN J 270.7 HYPERGLYCEMIA 12/22/2007 JOEL MC APRN 270.7 HYPERGLYCEMIA 01/13/2008 LEDESMA DO, ANNEL [...] ANNEL K 272.4 HYPERLIPIDEMIA 01/13/2008 FARR CASHERO FLIGHT CREW TIME CLERK, BHARGAV N 272.0 HYPERCHOLESTEROLEMIA PURE 01/13/2008 FARR CASHERO FLIGHT CREW TIME CLERK, BHARGAV N 272.1 HYPERTRIGLYCERIDEMIA 01/13/2008 FARR CASHERO FLIGHT CREW TIME CLERK, BHARGAV N 272.4 HYPERLIPIDEMIA 01/13/2008 LEDESMA DO, ANNEL K 272.0 HYPERCHOLESTEROLEMIA PURE 01/13/2008 LEDESMA DO, ANNEL K 272.1 HYPERTRIGLYCERIDEMIA 01/13/2008 LEDESMA DO, ANNEL K 272.4 HYPERLIPIDEMIA 01/13/2008 JOEL CM APRN 272.0 HYPERCHOLESTEROLEMIA PURE 01/13/2008 CM FLIGHT CREW TIME CLERK, JOEL J 272.1 HYPERTRIGLYCERIDEMIA 01/13/2008 CM FLIGHT CREW TIME CLERK, JOEL J 272.4 HYPERLIPIDEMIA 01/13/2008 CM FLIGHT CREW TIME CLERK, JOEL J 272.0 HYPERCHOLESTEROLEMIA PURE 01/13/2008 CM FLIGHT CREW TIME CLERK, JOEL J 272.1 HYPERTRIGLYCERIDEMIA 01/13/2008 CM FLIGHT CREW TIME CLERK, JOEL J 272.4 HYPERLIPIDEMIA 01/13/2008 CM FLIGHT CREW TIME CLERK, JOEL J 272.0 HYPERCHOLESTEROLEMIA PURE 01/13/2008 CM FLIGHT CREW TIME CLERK, JOEL J 272.1 HYPERTRIGLYCERIDEMIA 01/13/2008 CM FLIGHT CREW TIME CLERK, JOEL J 272.4 HYPERLIPIDEMIA 01/13/2008 CM FLIGHT CREW TIME CLERK, JOEL J 272.0 HYPERCHOLESTEROLEMIA PURE 01/13/2008 CM FLIGHT CREW TIME CLERK, JOEL J 272.1 HYPERTRIGLYCERIDEMIA 01/13/2008 CM FLIGHT CREW TIME CLERK, JOEL J 272.4 HYPERLIPIDEMIA 01/13/2008 CM FLIGHT CREW TIME CLERK, JOEL J 272.0 HYPERCHOLESTEROLEMIA PURE 01/13/2008 CM FLIGHT CREW TIME CLERK, JOEL J 272.1 HYPERTRIGLYCERIDEMIA 01/13/2008 CM FLIGHT CREW TIME CLERK, JOEL J 272.4 HYPERLIPIDEMIA 03/01/2008 ANNEL LEDESMA [...] LEDESMA DO 787.02 NAUSEA ALONE 03/01/2008 CM FLIGHT CREW TIME CLERKJOEL Herron J 079.99 VIRAL SYNDROME 03/01/2008 CM FLIGHT CREW TIME CLERK, JOEL J 787.02 NAUSEA ALONE 03/01/2008 CM FLIGHT CREW TIME CLERK, JOEL J 079.99 VIRAL SYNDROME 03/01/2008 CM FLIGHT CREW TIME CLERK, JOEL J 787.02 NAUSEA ALONE 03/01/2008 CM FLIGHT CREW TIME CLERK, JOEL J 079.99 VIRAL SYNDROME 03/01/2008 CM FLIGHT CREW TIME CLERK, JOEL J 787.02 NAUSEA ALONE 03/01/2008 CM FLIGHT CREW TIME CLERK, JOEL J 079.99 VIRAL SYNDROME 03/01/2008 CM FLIGHT CREW TIME CLERK, JOEL J 787.02 NAUSEA ALONE 03/01/2008 CM FLIGHT CREW TIME CLERK, JOEL J 079.99 VIRAL SYNDROME 03/01/2008 CM FLIGHT CREW TIME CLERK, JOEL Lionel 787.02 NAUSEA ALONE 03/14/2013 ANNEL [...] (CURRENT) USE OF OTHER MEDICATIONS 03/14/2013 ANNEL LDEESMA DO V58.69 LONG-TERM (CURRENT) USE OF OTHER [...] LEDESMA DOA K 724.5 BACKACHE UNSPECIFIED 04/04/2013 ANDRWE LEDESMA DOA K 729.1 MYALGIA AND MYOSITIS [...] CM APRN 786.50 UNSPECIFIED CHEST PAIN 04/25/2013 OJEL CM APRN 786.50 UNSPECIFIED CHEST PAIN 04/25/2013 [...] FACP CCDS Ot 414.01 CORONARY ATHEROSCLEROSIS OF [place] CORON 07/26/2013 NURYS RUTH MD, FACC FACP [...] FACP CCDS Ot 414.01 CORONARY ATHEROSCLEROSIS OF [place] CORON 03/13/2014 FLORY CONNELL FACC, NURYS FACP [...] OTH MED,LT,CURRENT USE 03/22/2014 BAIMA, SANYA L CHRONIC DISEASE MANAGER Ot 272.4 03/22/2014 BAIMA, SANYA L CHRONIC DISEASE MANAGER Ot 790.5 03/22/2014 BAIMA, SANYA L CHRONIC DISEASE MANAGER Ot 272.4 03/22/2014 BAIMA, SANYA L CHRONIC DISEASE MANAGER Ot 790.5 03/22/2014 BAIMA, SANYA L CHRONIC DISEASE MANAGER Ot 272.4 03/22/2014 BAIMA, SANYA L CHRONIC DISEASE MANAGER Ot 790.5 05/28/2014 BAIMA, SANYA L CHRONIC DISEASE MANAGER Ot 272.4 05/28/2014 BAIMA, SANYA L CHRONIC DISEASE MANAGER Ot 790.5 05/28/2014 BAIMA, SANYA L CHRONIC DISEASE MANAGER Ot 272.4 05/28/2014 BAIMA, SANYA L CHRONIC DISEASE MANAGER Ot 790.5 06/26/2014 BAIMA, SANYA L CHRONIC DISEASE MANAGER Ot 272.4 06/26/2014 BAIMA, SANYA L CHRONIC DISEASE MANAGER Ot 790.5 06/26/2014 BAIMA, SANYA L CHRONIC DISEASE MANAGER Ot 272.4 06/26/2014 BAIMA, SANYA L CHRONIC DISEASE MANAGER Ot 790.5 06/26/2014 BAIMA, SANYA L CHRONIC DISEASE MANAGER Ot 272.4 06/26/2014 BAIMA, SANYA L CHRONIC DISEASE MANAGER Ot 790.5 06/26/2014 BAIMA, SANYA L CHRONIC DISEASE MANAGER Ot 272.4 06/26/2014 BAIMA, SANYA L CHRONIC DISEASE MANAGER Ot 790.5 10/09/2014 BAIMA, SANYA L CHRONIC DISEASE MANAGER Ot 272.4 10/09/2014 BAIMA, SANYA L CHRONIC DISEASE MANAGER Ot 790.5 10/09/2014 BAIMA, SANYA L CHRONIC DISEASE MANAGER Ot 272.4 10/09/2014 BAIMA, SANYA L CHRONIC DISEASE MANAGER Ot 790.5 10/09/2014 TRAVIS WOO FLIGHT CREW TIME CLERK Ot 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, LOCALIZED 10/09/2014 TRAVIS WOO FLIGHT CREW TIME CLERK Ot 525.9 DENTAL DISORDER NOS 01/22/2015 BAIMA, SANYA L CHRONIC DISEASE MANAGER Ot 272.4 01/22/2015 BAIMA, SANYA L CHRONIC DISEASE MANAGER Ot 790.5 01/22/2015 BAIMA, SANYA L CHRONIC DISEASE MANAGER Ot 272.4 01/22/2015 BAIMA, SANYA L CHRONIC DISEASE MANAGER Ot 790.5 02/13/2015 HUMBERTO CUI CHRONIC DISEASE MANAGER Ot Z12.31 02/13/2015 BAIMA, SANYA L CHRONIC DISEASE MANAGER Ot E78.5 02/13/2015 BAIMA, SANYA L CHRONIC DISEASE MANAGER Ot I10 02/13/2015 BAIMA, SANYA L CHRONIC DISEASE MANAGER Ot I25.10 02/19/2015 HUMBERTO CUI W CHRONIC DISEASE MANAGER Ot Z12.31 02/19/2015 HUMBERTO CUI W CHRONIC DISEASE MANAGER Ot Z12.31 02/19/2015 BAIMA, SANYA L CHRONIC DISEASE MANAGER Ot E78.5 02/19/2015 BAIMA, SANYA L CHRONIC DISEASE MANAGER Ot I10 02/19/2015 BAIMA, SANYA L CHRONIC DISEASE MANAGER Ot I25.10 11/28/2015 BAIMA, SANYA L CHRONIC DISEASE MANAGER Ot 272.4 HYPERLIPIDEMIA NEC/NOS 11/28/2015 BAIMA, SANYA L CHRONIC DISEASE MANAGER Ot 790.5 ABN SERUM ENZY LEVEL NEC 11/28/2015 BAIMA, SANYA L CHRONIC DISEASE MANAGER Ot 272.4 HYPERLIPIDEMIA NEC/NOS 11/28/2015 BAIMA, SANYA L CHRONIC DISEASE MANAGER Ot 790.5 ABN SERUM ENZY LEVEL NEC 11/28/2015 HUMBERTO CUI CHRONIC DISEASE MANAGER Ot Z12.31 ENCNTR SCREEN MAMMOGRAM FOR MALIGNANT NE 11/28/2015 BAIMA, SANYA L CHRONIC DISEASE MANAGER Ot E78.5 HYPERLIPIDEMIA, UNSPECIFIED 11/28/2015 BAIMA, SANYA L CHRONIC DISEASE MANAGER Ot I10 ESSENTIAL (PRIMARY) HYPERTENSION 11/28/2015 BAIMA, SANYA L CHRONIC DISEASE MANAGER Ot I25.10 ATHSCL HEART DISEASE OF [place] CORONARY 11/28/2015 BAIMA, SANYA L CHRONIC DISEASE MANAGER Ot 272.4 HYPERLIPIDEMIA NEC/NOS 11/28/2015 BAIMA, SANYA L CHRONIC DISEASE MANAGER Ot 790.5 ABN SERUM ENZY LEVEL NEC 11/28/2015 BAIMA, SANYA L CHRONIC DISEASE MANAGER Ot 272.4 HYPERLIPIDEMIA NEC/NOS 11/28/2015 BAIMA, SANYA L CHRONIC DISEASE MANAGER Ot 790.5 ABN SERUM ENZY LEVEL NEC 11/28/2015 HUMBERTO CUI W CHRONIC DISEASE MANAGER Ot Z12.31 ENCNTR SCREEN MAMMOGRAM FOR MALIGNANT NE 11/28/2015 BAIMA, SANYA L CHRONIC DISEASE MANAGER Ot E78.5 HYPERLIPIDEMIA, UNSPECIFIED 11/28/2015 BAIMA, SANYA L CHRONIC DISEASE MANAGER Ot I10 ESSENTIAL (PRIMARY) HYPERTENSION 11/28/2015 BAIMA, SANYA L CHRONIC DISEASE MANAGER Ot I25.10 ATHSCL HEART DISEASE OF [place] CORONARY 11/29/2015 FLORY CONNELL FACC, NURYS FACP [...] CCDS Ot I25.10 ATHSCL HEART DISEASE OF [place] CORONARY 12/06/2015 FLORY CONNELL FACC, NURYS FACP CCDS Ot R00.2 PALPITATIONS 12/06/2015 FLORY CONNELL FACC, NURYS FACP CCDS Ot E11.9 TYPE 2 DIABETES MELLITUS WITHOUT COMPLIC 12/06/2015 FLORY CONNELL FACC, NURYS FACP CCDS Ot E78.4 OTHER HYPERLIPIDEMIA 12/06/2015 FLORY MD FACC, ALI FACP CCDS Ot I10 ESSENTIAL (PRIMARY) HYPERTENSION 12/06/2015 FLORY CONNELL FACC, ALI FACP CCDS Ot I25.10 ATHSCL HEART DISEASE OF [place] CORONARY 12/06/2015 FLORY CONNELL FACC, ALI FACP CCDS Ot R00.2 PALPITATIONS 12/11/2015 FLORY CONNELL FACC, ALI FACP CCDS Ot E11.9 TYPE 2 DIABETES MELLITUS WITHOUT COMPLIC 12/11/2015 FLORY CONNELL FACC, ALI FACP CCDS Ot E78.4 OTHER HYPERLIPIDEMIA 12/11/2015 FLORY CONNELL FACC, ALI FACP CCDS Ot I10 ESSENTIAL (PRIMARY) HYPERTENSION 12/11/2015 FLORY CONNELL FACC, ALI FACP CCDS Ot I25.10 ATHSCL HEART DISEASE OF [place] CORONARY 12/11/2015 FLORY CONNELL FACC, ALI FACP [...] CCDS Ot I25.10 ATHSCL HEART DISEASE OF [place] CORONARY 12/18/2015 FLORY CONNELL FACC, ALI FACP CCDS Ot R00.2 PALPITATIONS 12/18/2015 FLORY CONNELL FACC, ALI FACP CCDS Ot E11.9 TYPE 2 DIABETES MELLITUS WITHOUT COMPLIC 12/18/2015 FLORY CONNELL FACC, ALI FACP CCDS Ot E78.4 OTHER HYPERLIPIDEMIA 12/18/2015 FLORY CAPPSC, ALI FACP CCDS Ot I10 ESSENTIAL (PRIMARY) HYPERTENSION 12/18/2015 FLORY CAPPSC, ALI FACP CCDS Ot I25.10 ATHSCL HEART DISEASE OF [place] CORONARY 12/18/2015 FLORY CONNELL FACC, ALI FACP CCDS Ot R00.2 PALPITATIONS 12/27/2015 FLORY CONNELL FACC, ALI FACP CCDS Ot E11.9 TYPE 2 DIABETES MELLITUS WITHOUT COMPLIC 12/27/2015 FLORY CONNELL FACC, ALI FACP CCDS Ot E78.4 OTHER HYPERLIPIDEMIA 12/27/2015 FLORY CONNELL FACC, ALI FACP CCDS Ot I10 ESSENTIAL (PRIMARY) HYPERTENSION 12/27/2015 FLORY CONNELL FACC, ALI FACP CCDS Ot I25.10 ATHSCL HEART DISEASE OF [place] CORONARY 12/27/2015 FLORY CONNELL FACC, ALI FACP [...] CCDS Ot I25.10 ATHSCL HEART DISEASE OF [place] CORONARY 12/30/2015 FLORY CONNELL FACC, ALI FACP CCDS Ot R00.2 PALPITATIONS 12/30/2015 FLORY CONNELL FACC, ALI FACP CCDS Ot E11.9 TYPE 2 DIABETES MELLITUS WITHOUT COMPLIC 12/30/2015 FLORY CONNELL FACC, NURYS FACP CCDS Ot E78.4 OTHER HYPERLIPIDEMIA 12/30/2015 FLORY CONNELL FACC, ALI FACP CCDS Ot I10 ESSENTIAL (PRIMARY) HYPERTENSION 12/30/2015 FLORY CONNELL FACC, ALI FACP CCDS Ot I25.10 ATHSCL HEART DISEASE OF [place] CORONARY 12/30/2015 FLORY CONNELL FACC, ALI FACP CCDS Ot R00.2 PALPITATIONS 01/30/2016 FLORY CONNELL FACC, ALI FACP CCDS Ot E11.9 TYPE 2 DIABETES MELLITUS WITHOUT COMPLIC 01/30/2016 FLORY CONNELL FACC, ALI FACP CCDS Ot E78.5 HYPERLIPIDEMIA, UNSPECIFIED 01/30/2016 FLORY CONNELL FACC, ALI FACP CCDS Ot I10 ESSENTIAL (PRIMARY) HYPERTENSION 01/30/2016 FLORY CONNELL [facility], ALI FACP CCDS Ot I73.9 PERIPHERAL VASCULAR DISEASE, UNSPECIFIED 01/30/2016 FLORY CONNELL [facility], ALI FACP CCDS Ot K21.9 GASTRO-ESOPHAGEAL REFLUX DISEASE WITHOUT 01/30/2016 FLORY CONNELL [facility], ALI FACP CCDS Ot R00.2 PALPITATIONS 01/30/2016 FLORY CONNELL [facility], ALI FACP CCDS Ot Z79.02 MCC (CURRENT) USE OF ANTITHROMBOTI 01/30/2016 FLORY CONNELL [facility], ALI FACP CCDS Ot Z79.4 CONFIGURATION MANAGEMENT MANAGER (CURRENT) USE OF INSULIN 01/30/2016 FLORY CONNELL [facility], ALI FACP CCDS Ot Z79.899 OTHER MCC (CURRENT) DRUG THERAPY 02/20/2016 FLORY CONNELL [facility], ALI FACP CCDS Ot E11.9 TYPE 2 DIABETES MELLITUS WITHOUT COMPLIC 02/20/2016 FLORY CONNELL [facility], ALI FACP CCDS Ot E78.5 HYPERLIPIDEMIA, UNSPECIFIED 02/20/2016 FLORY CONNELL [facility], ALI FACP CCDS Ot I10 ESSENTIAL (PRIMARY) HYPERTENSION 02/20/2016 FLORY CONNELL [facility], ALI FACP CCDS Ot I73.9 PERIPHERAL VASCULAR DISEASE, UNSPECIFIED 02/20/2016 FLORY CONNELL [facility], ALI FACP CCDS Ot K21.9 GASTRO-ESOPHAGEAL REFLUX DISEASE WITHOUT 02/20/2016 FLORY CONNELL [facility], ALI FACP CCDS Ot R00.2 PALPITATIONS 02/20/2016 FLORY CONNELL [facility], ALI FACP CCDS Ot Z79.02 MCC (CURRENT) USE OF ANTITHROMBOTI 02/20/2016 FLORY CONNELL [facility], ALI FACP CCDS Ot Z79.4 CONFIGURATION MANAGEMENT MANAGER (CURRENT) USE OF INSULIN 02/20/2016 FLORY CONNELL [facility], ALI FACP CCDS Ot Z79.899 OTHER MCC (CURRENT) DRUG THERAPY 03/12/2016 SANYA CASTILLO CHRONIC DISEASE MANAGER Ot 272.4 HYPERLIPIDEMIA NEC/NOS 03/12/2016 SANYA CASTILLO CHRONIC DISEASE MANAGER Ot 790.5 ABN SERUM ENZY LEVEL NEC 03/12/2016 SANYA CASTILLO CHRONIC DISEASE MANAGER Ot 272.4 HYPERLIPIDEMIA NEC/NOS 03/12/2016 SANYA CASTILLO CHRONIC DISEASE MANAGER Ot 790.5 ABN SERUM ENZY LEVEL NEC 03/12/2016 HUMBERTO CUI CHRONIC DISEASE MANAGER Ot Z12.31 ENCNTR SCREEN MAMMOGRAM FOR MALIGNANT NE 03/12/2016 SANYA CASTILLO CHRONIC DISEASE MANAGER Ot E78.5 HYPERLIPIDEMIA, UNSPECIFIED 03/12/2016 SANYA CASTILLO CHRONIC DISEASE MANAGER Ot I10 ESSENTIAL (PRIMARY) HYPERTENSION 03/12/2016 SANYA CASTILLO CHRONIC DISEASE MANAGER Ot I25.10 ATHSCL HEART DISEASE OF [place] CORONARY 03/12/2016 FLORY CONNELL FACC, ALI FACP CCDS Ot E11.9 TYPE 2 DIABETES MELLITUS WITHOUT COMPLIC 03/12/2016 FLORY CONNELL FACC, ALI FACP CCDS Ot E78.4 OTHER HYPERLIPIDEMIA 03/12/2016 FLORY CONNELL FACC, ALI FACP CCDS Ot I10 ESSENTIAL (PRIMARY) HYPERTENSION 03/12/2016 LFORY CONNELL FACC, ALI FACP CCDS Ot I25.10 ATHSCL HEART DISEASE OF [place] CORONARY 03/12/2016 FLORY CONNELL FACC, ALI FACP [...] CCDS Ot I25.10 ATHSCL HEART DISEASE OF [place] CORONARY 03/12/2016 FLORY CONNELL FACC, ALI FACP CCDS Ot R00.2 PALPITATIONS 03/12/2016 FLORY CONNELL FACC, ALI FACP CCDS Ot E11.9 TYPE 2 DIABETES MELLITUS WITHOUT COMPLIC 03/12/2016 FLORY CONNELL FACC, ALI FACP CCDS Ot E78.4 OTHER HYPERLIPIDEMIA 03/12/2016 FLORY CONNELL FACC, ALI FACP CCDS Ot I10 ESSENTIAL (PRIMARY) HYPERTENSION 03/12/2016 FLORY CONNELL FACC, ALI FACP CCDS Ot I25.10 ATHSCL HEART DISEASE OF [place] CORONARY 03/12/2016 FLORY CONNELL FACC, ALI FACP CCDS Ot R00.2 PALPITATIONS 03/12/2016 FLORY CONNELL FACC, ALI FACP CCDS Ot E11.9 TYPE 2 DIABETES MELLITUS WITHOUT COMPLIC 03/12/2016 FLORY CONNELL FACC, ALI FACP CCDS Ot E78.4 OTHER HYPERLIPIDEMIA 03/12/2016 FLORY CONNELL FACC, ALI FACP CCDS Ot I10 ESSENTIAL (PRIMARY) HYPERTENSION 03/12/2016 FLORY CONNELL FACC, ALI FACP CCDS Ot I25.10 ATHSCL HEART DISEASE OF [place] CORONARY 03/12/2016 FLORY CONNELL FACC, ALI FACP [...] CONNELL FACC, ALI FACP CCDS Ot Z79.02 CONFIGURATION MANAGEMENT MANAGER (CURRENT) USE OF ANTITHROMBOTI 03/12/2016 FLORY CONNELL FACC, NURYS FACP CCDS Ot Z79.4 CONFIGURATION MANAGEMENT MANAGER (CURRENT) USE OF INSULIN 03/12/2016 FLORY CONNELL FACC, ALI FACP CCDS Ot Z79.899 OTHER CONFIGURATION MANAGEMENT MANAGER (CURRENT) DRUG THERAPY 03/23/2016 FLORY CONNELL FACC, ALI FACP CCDS Ot E11.9 TYPE 2 DIABETES MELLITUS WITHOUT COMPLIC 03/23/2016 FLORY CONNELL FACC, NURYS FACP CCDS Ot E78.4 OTHER HYPERLIPIDEMIA 03/23/2016 FLORY CONNELL FACC, ALI FACP CCDS Ot I10 ESSENTIAL (PRIMARY) HYPERTENSION 03/23/2016 FLORY CONNELL FACC, ALI FACP CCDS Ot I25.10 ATHSCL HEART DISEASE OF [place] CORONARY 03/23/2016 FLORY CONNELL FACC, ALI FACP CCDS Ot I73.9 PERIPHERAL VASCULAR DISEASE, UNSPECIFIED 03/23/2016 FLORY CONNELL FACC, ALI FACP CCDS Ot M79.89 OTHER SPECIFIED SOFT TISSUE DISORDERS 03/23/2016 [facility], [facility]I FACP CCDS Ot R00.2 PALPITATIONS 03/24/2016 [facility], [facility] FACP CCDS Ot E11.9 TYPE 2 DIABETES MELLITUS WITHOUT COMPLIC 03/24/2016 FLORY CONNELL FACC, ALI FACP CCDS Ot E78.4 OTHER HYPERLIPIDEMIA 03/24/2016 FLORY CONNELL FACC, ALI FACP CCDS Ot I10 ESSENTIAL (PRIMARY) HYPERTENSION 03/24/2016 FLORY CONNELL FACC, ALI FACP CCDS Ot I25.10 ATHSCL HEART DISEASE OF [place] CORONARY 03/24/2016 FLORY CONNELL [facility], ALI FACP CCDS Ot I73.9 PERIPHERAL VASCULAR DISEASE, UNSPECIFIED 03/24/2016 FLORY CONNELL [facility], ALI FACP CCDS Ot M79.89 OTHER SPECIFIED SOFT TISSUE DISORDERS 03/24/2016 FLORY CAPPS, ALI FACP CCDS Ot R00.2 PALPITATIONS Procedures Code Description [place] [address] A1C (IN-HOUSE) 65970 MICRO ALBUMIN-IN HOUSE 03/14/2013 40698 GLUCOSE FINGER STICK 03/24/2013 90744 ROUTINE VENIPUNCTURE 03/24/2013 70490 CMP 03/24/2013 50160 LIPID PANEL 03/24 THYANA THYROID ANALYZER 03/24/2013 48505 ROUTINE VENIPUNCTURE 04/04/2013 03321 UA LONG DIP 04/04 84069 CPK 04/04/2013 61832 CRP 04/04/2013 INTERNAL JARVIS ALMONTE 04/04/2013 CARDIOLOG NURYS RUTH 04/25/2013 86975 MICRO ALBUMIN-IN HOUSE 07/10/2013 34497 A1C (IN-HOUSE) 38284 LEFT HEART CATH 07/25/2013 65416 OXIMETRY 2013 08376 A1C (IN-HOUSE) 15982 ROUTINE VENIPUNCTURE 10/09/2013 90555 CMP 10/09/2013 90904 LIPID PANEL 10/09 80012 CBC 10/09/2013 THYANA THYROID ANALYZER 10/09/2013 57423 ROUTINE VENIPUNCTURE 10/10/2013 44665 CALCIUM IONIZED 10/10/2013 70978 PTH (intact) (ORDER ONLY) 10/10/2013 75956 ROUTINE VENIPUNCTURE 10/11/2013 05664 PTH (intact) (ORDER ONLY) 10/11/2013 75894 EKG, TRACING (IN-HOUSE) 10/11/2013 49763 OXIMETRY 2013 [id number] CALCIUM (RESULT ONLY) 10/12/2013 6757071 PTH INTACT EDUARDO (RESULT ONLY) 10/12/2013 37405 HEPATITIS PROFILE 10/27/2013 02884 AMYLASE 2013 84147 GGT 10/27/2013 93927 LIPASE 2013 74797 ROUTINE VENIPUNCTURE 10/27/2013 83657 CMP 10/27/2013 97432 LIPID PANEL 10/27 22931 A1C (IN-HOUSE) ENDOCRINNicolás GREENE VALERIY 01/24/2014 73908 CBC 01/25/2014 75311 ROUTINE VENIPUNCTURE 01/25/2014 13061 CMP 01/25/2014 66191 LIPID PANEL 01/25 93739 T4 FREE 2013 34291 TSH 01/25/2014 92128 FREE ASSAY (FT-3) 01/25/2014 Results Encounters ACCT No. Visit Date/Time Discharge Status Pt. Type Provider Facility Loc./Unit Complaint [id number] 01/25/2014 09:59:00 01/25/2014 23: 59:59 CLS Outpatient JOEL CM APRN [id number] 01/23/2014 14:04:00 01/23/2014 23: 59:59 CLS Outpatient JOEL CM APRN [id number] 10/27/2013 08:47:00 10/27/2013 23: 59:59 CLS Outpatient JOEL CM APRN [id number] 10/11/2013 10:20:00 10/11/2013 23: 59:59 CLS Outpatient JOEL CM APRN [id number] 10/10/2013 08:03:00 10/10/2013 23: 59:59 CLS Outpatient CM JOEL GHOSH [id number] 10/09/2013 08:45:00 10/09/2013 23: 59:59 CLS Outpatient ANNEL LEDESMA DO [id number] 09/06/2013 07:52:00 09/06/2013 23: 59:59 CLS Outpatient BHARGAV ROJAS APRN Gopal [id number] 07/19/2013 08:40:00 07/19/2013 23: 59:59 CLS Outpatient ANNEL LEDESMA DO [id number] 07/10/2013 14:32:00 07/10/2013 23: 59:59 CLS Outpatient ANNEL LEDESMA DO [id number] 05/23/2013 13:12:00 05/23/2013 23: 59:59 CLS Outpatient MAYRA MONTAÑO MD [id number] 04/25/2013 14:18:00 04/25/2013 23: 59:59 CLS Outpatient ANNEL LEDESMA DO [id number] 04/04/2013 10:39:00 04/04/2013 23: 59:59 CLS Outpatient ANNEL LEDESMA DO [id number] 03/24/2013 08:38:00 03/24/2013 23: 59:59 CLS Outpatient ANNEL LEDESMA DO [id number] 03/14/2013 11:33:00 03/14/2013 23: 59:59 CLS Outpatient ANNEL LEDESMA DO
[2016-08-18] MEDS: cefTRIAXone 1 GM/NS 50 ML IVPB IV SCH ×2 (09:51)
[2016-08-18] MEDS ORDERED: DICYCLOMINE 10 MG (BENTYL) CAP PO PRN (10:15)
[2016-08-18] MEDS ORDERED: IBUPROFEN TABLET 200 MG TAB PO PRN (10:15)
[2016-08-18] MEDS: inSUlin ASPART (NovoLOG) 1 UNIT/0.01 ML (CHARGE PER UNIT) SC SCH ×2 (11:36→16:51)
[2016-08-18] MEDS: ALPRAZolam 0.25 MG (XANAX) TAB PO SCH ×2 (12:09→21:24)
--- NOTE | 2016-08-18 12:58 | History & Physical-Hospitalist ---
HPI History of Present Illness: HPI/Chief Complaint The patient is a 55-year-old white female who presented to the emergency room late yesterday afternoon with complaints of fever dysuria nausea and vomiting. She is an insulin-requiring diabetic and her illness had caused her blood sugar to be in the 400s. This was despite nausea and repeated vomiting on Wednesday and Wednesday. She believes that her symptoms actually began last Wednesday with dysuria. She had attempted to get an appointment with her track sweeper which was not until today. Her was finally able to prevail upon her to go to the emergency room. There she was found to have a white blood count of 23,900. Her glucose was 470. UA showed greater than 100 red blood cells and greater than 100 white blood cells per high-powered field. She is presently growing Escherichia coli from the urine. She reports that she feels much better this morning although washed out. Comment: She reports mini and various medication allergies which are detailed in the medications section. This includes multiple insulin products. Source: patient Exam Limitations: no limitations Date Seen 08/18/16 Time Seen by Provider: 12:53 Attending Physician Emily Iverson DO PCP No,Local Physician Referring Physician Date of Admission Aug 17, 2016 at 18:05 Home Medications & Allergies Home Medications Reviewed patient Home Medication Reconciliation Form Allergies Allergies Coded Allergies Oohorsz-Vaw-Gim Reductase Inhibitor (Verified Allergy, Intermediate, 07/25/13) SEVERE MUSCLE ACHES clonazepam (Verified Allergy, Mild, 07/25/13) DYSRHYMIAS morphine (Verified Allergy, Mild, 07/25/13) ITCHING Beta-Blockers (Beta-Adrenergic Bloc (Unverified Adverse Reaction, Intermediate , chest tightness, 10/30/13) metformin (Unverified Adverse Reaction, Intermediate, 07/25/13) PALPITATIONS acetaminophen (Verified Adverse Reaction, Mild, NAUSEA, 07/25/13) albuterol (Unverified Adverse Reaction, Mild, 07/25/13) LIGHTHEADEDNESS bupropion (Verified Adverse Reaction, Mild, 07/25/13) INCREASED BLOOD SUGAR ezetimibe (Verified Adverse Reaction, Mild, NAUSEA, 07/25/13) gabapentin (Verified Adverse Reaction, Mild, 07/25/13) increased pain insulin aspart (Verified Adverse Reaction, Mild, 07/25/13) "almost killed me" insulin aspart protamine human (Verified Adverse Reaction, Mild, PER PATIENT DOES NOT WORK FOR HER, REGULAR INSULIN OKAY, 08/17/16) "almost killed me" insulin detemir (Unverified Adverse Reaction, Mild, 07/25/13) SEVERE MUSCLE PAINS levofloxacin (Verified Adverse Reaction, Mild, 07/25/13) VOMITIMG oxycodone (Verified Adverse Reaction, Mild, NAUSEA, 07/25/13) pregabalin (Unverified Adverse Reaction, Mild, Dizzy, 10/30/13) Uncoded Allergies Lantis ( Adverse Reaction, Unknown, can't tolerate, 10/30/13) Past Iuvehmf-Cpuiiw-Jtveiq Hx Patient Social History Alcohol Use: Denies Use Recreational Drug Use: No Smoking Status: Never a Smoker Former smoker/When Quit: Mar 13, 1995 Physical Abuse Screen: No Sexual Abuse: No Recent Foreign Travel: No Contact w/other who traveled: No Recent Hopitalizations: No Recent Infectious Disease Expo: No Immunizations Up To Date Date of Pneumonia Vaccine: Jun 07, 2013 Seasonal Allergies Seasonal Allergies: No Surgeries HX Surgeries: Yes ( X 2, PARTIAL HYST AND 1 OVARY) Surgeries: Adenoidectomy, Section, Coronary Stent, Hysterectomy, Tonsillectomy, Tubal Ligation Respiratory Hx Respiratory Disorders: No Cardiovascular Hx Cardiovascular Disorders: Yes (chest pains) Cardiac Disorders: Coronary Artery Disease, Hypertension Neurological Hx Neurological Disorders: Yes Neurological Disorders: Concussion Reproductive System Hx Reproductive Disorders: No Genitourinary Hx Genitourinary Disorders: No Gastrointestinal Hx Gastrointestinal Disorders: Yes Gastrointestinal Disorders: Irritable Bowel Musculoskeletal Hx Musculoskeletal Disorders: Yes Musculoskeletal Disorders: Fibromyalgia Endocrine Hx Endocrine Disorders: Yes (TYPE II) Endocrine Disorders: Diabetes, Insulin dep HEENT HX ENT Disorders: No Loss of Vision: Denies Hearing Impairment: Denies Cancer Hx Cancer: No Psychosocial Hx Psychiatric Problems: Yes Behavioral Health Disorders: Anxiety, Depression Integumentary HX Skin/Integumentary Disorder: No Blood Transfusions Hx Blood Disorders: No Review of Systems Constitutional: see HPI EENTM: no symptoms reported Respiratory: no symptoms reported Cardiovascular: no symptoms reported Gastrointestinal: heartburn, loss of appetite, nausea, vomiting Genitourinary: see HPI, decreased output Musculoskeletal: muscle weakness Skin: no symptoms reported Psychiatric/Neurological: No Symptoms Reported Physical Exam Physical Exam Vital Signs Vital Sign - Last 12Hours 08/17/16 17:33 Temp 97.6 Pulse 79 Resp 18 B/P (MAP) 184/90 Pulse Ox 100 O2 Delivery Room Air Capillary Refill : Less Than 3 Seconds General Appearance: Mild Distress Eyes: Bilateral Eye Normal Inspection HEENT: Normal ENT Inspection Neck: Normal Inspection Respiratory: Chest Non Tender, Lungs Clear, Normal Breath Sounds, No Accessory Muscle Use, No Respiratory Distress Cardiovascular: Regular Rate, Rhythm, No Edema, No Gallop, No JVD, No Murmur, Normal Peripheral Pulses Gastrointestinal: Normal Bowel Sounds, No Organomegaly, No Pulsatile Mass, Non Tender, Soft Back: Normal Inspection, No CVA Tenderness, No Vertebral Tenderness Neurologic/Psychiatric: Alert, Oriented x3, No Motor/Sensory Deficits, Normal Mood/Affect Skin: Diaphoresis (warm) Lymphatic: No Adenopathy Results Results/Procedures Lab Laboratory Tests 08/17/16 17:33 08/18/16 05:30 Assessment/Plan Admission Diagnosis Urinary tract infection with Escherichia coli. 2.dehydration secondary to repeated nausea and vomiting. 3.diabetes out of control., The patient had stopped taking her insulin product and was only taking metformin during this period of illness. Assessment and Plan Plan: Fluid replacement and IV antibiotics Clinical Quality Measures DVT/VTE Risk/Contraindication: Risk Factor Score Per Nursin RFS Level Per Nursing on Admit: 2=Moderate CHINMAY MARTINEZ MD Aug 18, 2016 12:58
[2016-08-19] VITALS: BP 136/75
[2016-08-19] MEDS ORDERED: LEVOTHYROXINE 50 MCG (LEVOTHROID) TAB ONE (05:35)
[2016-08-19] MEDS: NS IV 1000 ML 1,000 ML IV SCH (05:41)
[2016-08-19] MEDS: inSUlin (REGULAR) HUMAN 1 UNIT/0.01 ML (CHARGE PER UNIT) SC SCH ×2 (06:01→11:39)
[2016-08-19] MEDS: inSUlin ASPART (NovoLOG) 1 UNIT/0.01 ML (CHARGE PER UNIT) SC SCH ×2 (06:02→11:39)
[2016-08-19] MEDS: ALPRAZolam 0.25 MG (XANAX) TAB PO SCH ×2 (07:23→11:38)
[2016-08-19 07:47] VITALS: BP 150/72
[2016-08-19] MEDS: cefTRIAXone 1 GM/NS 50 ML IVPB IV SCH ×2 (08:14)
[2016-08-19] MEDS ORDERED: ASPIRIN 81 MG CHEW (CHILDREN'S ASA) PO SCH (09:00)
[2016-08-19] MEDS ORDERED: lisINopril 10 MG (PRINIVIL) TAB PO SCH (09:00)
[2016-08-19] MEDS ORDERED: CLOPIDOGREL 75 MG (PLAVIX) TABLET PO SCH (09:00)
[2016-08-19] MEDS ORDERED: metFORMIN XR 500 MG (GLUCOPHAGE XR) TAB PO SCH (09:00)
[2016-08-19] MEDS ORDERED: LEVOTHYROXINE 50 MCG (LEVOTHROID) TAB PO SCH (09:00)
[2016-08-19] MEDS ORDERED: LACTULOSE SYRUP 10GM/15ML (ENULOSE) 30ML UDC PO NR (09:48)
[2016-08-19] MEDS ORDERED: LACT20SO2 PO (11:50)
[2016-08-19] MEDS ORDERED: CEFD300C3 PO (11:50)
--- NOTE | 2016-08-19 11:56 | Discharge Summary-Hospitalist ---
Diagnosis/Chief Complaint Date of Admission Aug 17, 2016 at 18:05 Date of Discharge Discharge Date: Aug 19, 2016 Admission Diagnosis Urinary tract infection with Escherichia coli. 2.dehydration secondary to repeated nausea and vomiting. 3.diabetes out of control., The patient had stopped taking her insulin product and was only taking metformin during this period of illness. Discharge Diagnosis Urinary tract infection with Escherichia coli. 2.dehydration secondary to repeated nausea and vomiting. 3.diabetes out of control., The patient had stopped taking her insulin product and was only taking metformin during this period of illness. Reason Hospital Visit/Course The patient is a 55-year-old white female who presented to the emergency room late yesterday afternoon with complaints of fever dysuria nausea and vomiting. She is an insulin-requiring diabetic and her illness had caused her blood sugar to be in the 400s. This was despite nausea and repeated vomiting on Wednesday and Wednesday. She believes that her symptoms actually began last Wednesday with dysuria. She had attempted to get an appointment with her bioinformatics research technician which was not until today. Her was finally able to prevail upon her to go to the emergency room. There she was found to have a white blood count of 23,900. Her glucose was 470. UA showed greater than 100 red blood cells and greater than 100 white blood cells per high-powered field. She is presently growing Escherichia coli from the urine. She reports that she feels much better this morning although washed out. Comment: She reports mini and various medication allergies which are detailed in the medications section. This includes multiple insulin products. Notes from 08/19/16 Chart Review: No fever Blood sugar 200 UA E.coli Pharmacy Review: 4 more days of Cefdinir Patient Interview: Pt confirms seeing Dr. Rodriguez Pt states that she would like to DC, but was very appreciative of staying one more night for fluids Pt states that she has been ambulating Pt confirms Dr. Morales as PCP. Pt asked for list of local PCPs because she would rather have a PCP in [place]. 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 Pt denies having BMs and she would like some meds for this Pt confirms home in [place] no fever, vital signs stable, pleasant, improved, family at bedside Regular rate and rhythm, clear to auscultation bilaterally No edema Plan: Send Cefdinir and Lactulose to [facility] Provide PCP [place] list to pt Scribed by Petrona Hung under the direct supervision of Dr. Almonte. Discharge Summary Discharge Physical Examination Allergies: Coded Allergies: Akrwkcs-Nvn-Wdq Reductase Inhibitor (Verified Allergy, Intermediate, ) SEVERE MUSCLE ACHES clonazepam (Verified Allergy, Mild, 07/25/13) DYSRHYMIAS morphine (Verified Allergy, Mild, 07/25/13) ITCHING Beta-Blockers (Beta-Adrenergic Bloc (Unverified Adverse Reaction, Intermediate, chest tightness, 10/30/13) metformin (Unverified Adverse Reaction, Intermediate, 07/25/13) PALPITATIONS acetaminophen (Verified Adverse Reaction, Mild, NAUSEA, 07/25/13) albuterol (Unverified Adverse Reaction, Mild, 07/25/13) LIGHTHEADEDNESS bupropion (Verified Adverse Reaction, Mild, 07/25/13) INCREASED BLOOD SUGAR ezetimibe (Verified Adverse Reaction, Mild, NAUSEA, 07/25/13) gabapentin (Verified Adverse Reaction, Mild, 07/25/13) increased pain insulin aspart (Verified Adverse Reaction, Mild, 07/25/13) "almost killed me" insulin aspart protamine human (Verified Adverse Reaction, Mild, PER PATIENT DOES NOT WORK FOR HER, REGULAR INSULIN OKAY, 08/17/16) "almost killed me" insulin detemir (Unverified Adverse Reaction, Mild, 07/25/13) SEVERE MUSCLE PAINS levofloxacin (Verified Adverse Reaction, Mild, 07/25/13) VOMITIMG oxycodone (Verified Adverse Reaction, Mild, NAUSEA, 07/25/13) pregabalin (Unverified Adverse Reaction, Mild, Dizzy, 10/30/13) Uncoded Allergies: Lantis (Adverse Reaction, Unknown, can't tolerate, 10/30/13) Vitals & I&Os Vital Signs Date Time Temp Pulse Resp B/P (MAP) Pulse Ox O2 Delivery O2 Flow Rate FiO2 08/19/16 08:52 Room Air 08/19/16 07:47 97.2 90 18 150/72 96 Hospital Course Labs (last 24 hrs) Laboratory Tests 08/18/16 21:06: Glucometer 345H 08/19/16 05:30: Glucometer 220H 08/19/16 11:00: Glucometer 235H Microbiology 08/17/16 Blood Culture - Preliminary, Resulted No growth 08/17/16 Urine Culture - Final, Complete Escherichia Coli Pending Labs Laboratory Tests 08/19/16 11:00: Glucometer 235 Discharge Home Medications: Active Scripts Active Cefdinir 300 Mg Capsule 300 Mg PO BID Lactulose 20 Gm/30 Ml Solution 10 Gm PO TID Reported Advil (Ibuprofen) 200 Mg Tablet 200 Mg PO Q6H PRN Azo Cranberry Tablet (Cranberry Conc/C/Bacill Coag) 1 Each Tablet 1 Tab PO BID PRN Dicyclomine HCl 10 Mg Capsule 10 Mg PO BID PRN Humalog (Insulin Lispro) 100 Unit/1 Ml Vial 10 Units SC AC Metformin HCl ER (Metformin HCl) 500 Mg Tab.er.24h 500 Mg PO DAILY Lisinopril 10 Mg Tablet 10 Mg PO DAILY Alprazolam 0.25 Mg Tablet 0.25 Mg PO TID Tums Ultra (Calcium Carbonate) 1,000 Mg Tab.chew 2,000 Mg PO TID PRN Plavix Tablet (Clopidogrel Bisulfate) 75 Mg Tab 75 Mg PO DAILY Levothyroxine 50 Mcg Tab (Levothyroxine Sodium) 50 Mcg Tablet 50 Mcg PO DAILY Aspir 81 (Aspirin) 81 Mg Tablet. 81 Mg PO DAILY Instructions to patient/family Please see electonic discharge instructions given to patient. Clinical Quality Measures DVT/VTE Risk/Contraindication: Risk Factor Score Per Nursin RFS Level Per Nursing on Admit: 2=Moderate JARVIS ALMONTE DO Aug 19, 2016 11:56
== END 2016-08-19 13:00 | disposition home or self-care (01) | DRG 690 ==
LOC: EDUNIT# 17:11 → ER 17:14 → UNDOADMIN 18:05 → 4TH 18:05
PROVIDERS: ADMIT Internal Medicine; ATTEND Internal Medicine
DX: N39.0 Urinary tract infection, site not specified (principal); B96.20 Unspecified Escherichia coli [E. coli] as the cause of diseases classified elsewhere; E86.0 Dehydration; E11.65 Type 2 diabetes mellitus with hyperglycemia; Z79.4 Long term (current) use of insulin; I25.10 Atherosclerotic heart disease of native coronary artery without angina pectoris; I10 Essential (primary) hypertension; F41.9 Anxiety disorder, unspecified; F32.9 Major depressive disorder, single episode, unspecified; Z95.5 Presence of coronary angioplasty implant and graft
CPT/HCPCS: 36415; 74177; 80048; 81000; 82962; 83605; 85007; 85025; 85027; 87040; 87077; 87088; 87186; 96361; 96365; 96375

== ENCOUNTER → 2016-10-20 | Outpatient (CLI) | payer OTHER, MEDICAID ==
[~2016-10-20] MED LIST changes: +ALPR0.254 PO; +CEFD300C3 PO; +CRAN1TAB4 PO; +DICY10CA12 PO; +IBUP-30 PO; +INSU100V SC; +LACT20SO2 PO; +LISI10TA2 PO; +METF500T8 PO
== END ==
LOC: RAD 11:43
PROVIDERS: ATTEND Nurse Practitioner Family
DX: I25.10 Atherosclerotic heart disease of native coronary artery without angina pectoris (principal); I65.23 Occlusion and stenosis of bilateral carotid arteries; I10 Essential (primary) hypertension; E78.4 Other hyperlipidemia
CPT/HCPCS: 93923

== ENCOUNTER 2017-11-16 08:19 | Day surgery (SDC) | payer MEDICAID, MEDICARE ==
[~2017-11-16] VITALS: Ht 152.4 cm; Wt 64.9 kg
[~2017-11-16 08:19] MED LIST changes: +HYDR-4226 PO; -HYDR-757 PO
--- OUTSIDE RECORDS SUMMARY | 2017-11-16 08:38 | XMS REPORT | Continuity of Care Document ---
Author Author [facility] Address Unknown Phone Unavailable Allergies Active Description Code Type Severity Reaction Onset Reported/Identified Relationship to Patient Clinical Status Yes albuterol Drug Allergy N/A N/A 03/14/2013 Yes amitriptyline Drug Allergy N/ A N/A 03/14/2013 Yes Levaquin Drug Allergy N/A N/A 03/14/2013 Yes metformin Drug Allergy N/A N/A 03/14/2013 Yes morphine Drug Allergy N/A N/A 03/14/2013 Yes Novolog Mix 70-30 Drug Allergy N/A N/A 03/14/2013 Yes Gyopfug-Zak-Wyw Reductase Inhibitors Drug Allergy N/A N/A 03/14/2013 Yes Beta-Blockers (Beta-Adrenergic Blocking Agts) Drug Allergy N/A N/A 2013 Yes Klonopin Drug Allergy N/A N/A 04/04/2013 Yes Lantus Drug Allergy N/A N/A 04/04/2013 Yes Neurontin Drug Allergy N/A N/A 04/04/2013 Yes Percocet Drug Allergy N/A N/A 04/04/2013 Yes tramadol Drug Allergy N/A N/A 04/04/2013 Yes Tricyclic Compounds Drug Allergy N/A N/A 04/04/2013 Yes Wellbutrin Drug Allergy N/A N/A 04/04/2013 Yes Zetia Drug Allergy N/A N/A 04/04/2013 Yes metformin [id number] Drug Allergy Moderate N/A 07/25/2013 Yes Kojsuyf-Sld-Bio Reductase Inhibitor [id number] Drug Allergy Moderate N/A Yes acetaminophen [id number] Drug Allergy Mild NAUSEA 07/25/2013 Yes albuterol [id number] Drug Allergy Mild N/A 07/25/2013 Yes bupropion [id number] Drug Allergy Mild N/A 07/25/2013 Yes clonazepam [id number] Drug Allergy Mild N/A 07/25/2013 Yes ezetimibe [id number] Drug Allergy Mild NAUSEA 07/25/2013 Yes gabapentin [id number] Drug Allergy Mild N/A 07/25/2013 Yes insulin aspart [id number] Drug Allergy Mild N/A 07/25/2013 Yes insulin aspart protamine human [id number] Drug Allergy Mild N/A 07/25/2013 Yes insulin detemir [id number] Drug Allergy Mild N/A 07/25/2013 Yes levofloxacin [id number] Drug Allergy Mild N/A 07/25/2013 Yes morphine [id number] Drug Allergy Mild N/A 07/25/2013 Yes oxycodone [id number] Drug Allergy Mild NAUSEA 07/25/2013 Yes Beta-Blockers (Beta-Adrenergic Bloc [id number] Drug Allergy Moderate chest tightness 10/30/2013 Yes pregabalin [id number] Drug Allergy Mild Dizzy 10/30/2013 Yes Raymundo Fonseca Unknown can't tolerate 10/30/2013 Yes insulin aspart protamine human [id number] Drug Allergy Mild PER PATIENT CACERES 08/17/2016 Medications There is no data. Problems Date Dx Coded Attending Type Code Diagnosis Diagnosed By 11/24/2007 ANNEL LEDESMA DO 250.02 DIABETES II UNCONTROLLED 11/24/2007 ANNEL LEDESMA DO 251.1 HYPERINSULINISM 11/24/2007 ANNEL LEDESMA DO K 300.00 ANXIETY 11/24/2007 ANNEL LEDESMA DO K 250.02 DIABETES II UNCONTROLLED 11/24/2007 ANNEL LEDESMA DO 251.1 HYPERINSULINISM 11/24/2007 ANNEL LEDESMA DO K 300.00 ANXIETY 11/24/2007 ANNEL LEDESMA DO K 250.02 DIABETES II UNCONTROLLED 11/24/2007 ANNEL LEDESMA DO 251.1 HYPERINSULINISM 11/24/2007 ANNEL LEDESMA DO K 300.00 ANXIETY 11/24/2007 ANNEL LEDESMA DO 250.02 DIABETES II UNCONTROLLED 11/24/2007 ANNEL LEDESMA DO 251.1 HYPERINSULINISM 11/24/2007 ANDREW LEDESMA DOA K 300.00 ANXIETY 11/24/2007 MAYRA MONTAÑO MD 250.02 DIABETES II UNCONTROLLED 11/24/2007 MAYRA MONTAÑO MD 251.1 HYPERINSULINISM 11/24/2007 MAYRA MONTAÑO MD 300.00 ANXIETY 11/24/2007 CALLIE BONDS ANNEL K 250.02 DIABETES MELLITUS TYPE 2 - UNCOMPLICATED, UNCONTROLLED 11/24/2007 LEDESMA DO, ANNEL K 251.1 HYPERINSULINISM 11/24/2007 LEDESMA , ANNEL K 300.00 ANXIETY 11/24/2007 LEDESMA DO, ANNEL K 250.02 DIABETES MELLITUS TYPE 2 - UNCOMPLICATED, UNCONTROLLED 11/24/2007 LEDESMA DO, ANNEL K 251.1 HYPERINSULINISM 11/24/2007 CALLIE BONDS ANNEL K 300.00 ANXIETY 11/24/2007 FARR CASHERO THREAD CHECKERRENUKA HerronCY N 250.02 DIABETES MELLITUS TYPE 2 - UNCOMPLICATED, UNCONTROLLED 11/24/2007 FARR CASHERO THREAD CHECKER, BHARGAV N 251.1 HYPERINSULINISM 11/24/2007 FARR CASHERO THREAD CHECKER, BHARGAV N 300.00 ANXIETY 11/24/2007 CALLIE BONDS ANNEL K 250.02 DIABETES MELLITUS TYPE 2 - UNCOMPLICATED, UNCONTROLLED 11/24/2007 CALLIE BONDS ANNEL K 251.1 HYPERINSULINISM 11/24/2007 CALLIE BONDS ANNEL K 300.00 ANXIETY 11/24/2007 JOEL CM APRN [...] J 300.00 ANXIETY 11/24/2007 JOEL CM APRN J 250.02 DIABETES MELLITUS TYPE 2 - UNCOMPLICATED, UNCONTROLLED 11/24/2007 JOEL CM APRN J 251.1 HYPERINSULINISM 11/24/2007 JOEL CM APRN J [...] MD 780.60 FEVER, UNSPECIFIED 12/13/2007 LEDESMA DO, ANNLE K 401.1 ESSENTIAL HYPERTENSION BENIGN 12/13/2007 LEDESMA DO, ANNEL K 465.9 UPPER RESPIRATORY INFECTION 12/13/2007 LEDESMA DO, ANNEL K 780.60 FEVER, UNSPECIFIED 12/13/2007 LEDESMA DO, ANNEL K 401.1 ESSENTIAL HYPERTENSION BENIGN 12/13/2007 LEDESMA DO, ANNEL K 465.9 UPPER RESPIRATORY INFECTION 12/13/2007 LEDESMA DO, ANNEL K 780.60 FEVER, UNSPECIFIED 12/13/2007 FARR CASHERO THREAD CHECKER, BHARGAV N 401.1 ESSENTIAL HYPERTENSION BENIGN 12/13/2007 FARR CASHERO THREAD CHECKER, BHARGAV N 465.9 UPPER RESPIRATORY INFECTION 12/13/2007 FARR CASHERO THREAD CHECKER, BHARGAV N 780.60 FEVER, UNSPECIFIED 12/13/2007 LEDESMA DO, ANNEL K 401.1 ESSENTIAL HYPERTENSION BENIGN 12/13/2007 LEDESMA DO, ANNEL K 465.9 UPPER RESPIRATORY INFECTION 12/13/2007 LEDESMA DO, ANNEL K 780.60 FEVER, UNSPECIFIED 12/13/2007 JOEL CM APRN J 401.1 ESSENTIAL HYPERTENSION BENIGN 12/13/2007 JOEL [...] LEDESMA DO, ANNEL K 270.7 HYPERGLYCEMIA 12/22/2007 JOEL CM APRN J 270.7 HYPERGLYCEMIA 12/22/2007 JOEL CM APRN J 270.7 HYPERGLYCEMIA 12/22/2007 CM JOEL GHOSH J 270.7 HYPERGLYCEMIA 12/22/2007 CM THREAD CHECKER, JOEL J 270.7 HYPERGLYCEMIA 12/22/2007 CM THREAD CHECKER, JOEL J 270.7 HYPERGLYCEMIA 01/13/2008 LEDESMA DO, ANNEL K [...] ANNEL K 272.4 HYPERLIPIDEMIA 01/13/2008 FARR CASHERO THREAD CHECKER, BHARGAV N 272.0 HYPERCHOLESTEROLEMIA PURE 01/13/2008 FARR CASHERO THREAD CHECKER, BHARGAV N 272.1 HYPERTRIGLYCERIDEMIA 01/13/2008 FARR CASHERO THREAD CHECKER, BHARGAV N 272.4 HYPERLIPIDEMIA 01/13/2008 LEDESMA DO, ANNEL K 272.0 HYPERCHOLESTEROLEMIA PURE 01/13/2008 LEDESMA DO, ANNEL K 272.1 HYPERTRIGLYCERIDEMIA 01/13/2008 LEDESMA DO, ANNEL K 272.4 HYPERLIPIDEMIA 01/13/2008 CM THREAD CHECKER, JOEL J 272.0 HYPERCHOLESTEROLEMIA PURE 01/13/2008 CM THREAD CHECKER, JOEL J 272.1 HYPERTRIGLYCERIDEMIA 01/13/2008 CM THREAD CHECKER, JOEL J 272.4 HYPERLIPIDEMIA 01/13/2008 CM THREAD CHECKER, JOEL J 272.0 HYPERCHOLESTEROLEMIA PURE 01/13/2008 CM THREAD CHECKER, JOEL J 272.1 HYPERTRIGLYCERIDEMIA 01/13/2008 CM THREAD CHECKER, JOEL J 272.4 HYPERLIPIDEMIA 01/13/2008 CM THREAD CHECKER, JOEL J 272.0 HYPERCHOLESTEROLEMIA PURE 01/13/2008 CM THREAD CHECKER, JOEL J 272.1 HYPERTRIGLYCERIDEMIA 01/13/2008 CM THREAD CHECKER, JOEL J 272.4 HYPERLIPIDEMIA 01/13/2008 CM THREAD CHECKER, JOEL J 272.0 HYPERCHOLESTEROLEMIA PURE 01/13/2008 CM THREAD CHECKER, JOEL J 272.1 HYPERTRIGLYCERIDEMIA 01/13/2008 CM THREAD CHECKER, JOEL J 272.4 HYPERLIPIDEMIA 01/13/2008 CM THREAD CHECKER, JOEL J 272.0 HYPERCHOLESTEROLEMIA PURE 01/13/2008 CM THREAD CHECKER, JOEL J 272.1 HYPERTRIGLYCERIDEMIA 01/13/2008 CM THREAD CHECKER, JOEL J 272.4 HYPERLIPIDEMIA 03/01/2008 ANNEL LEDESMA DO 079.99 VIRAL SYNDROME 03/01/2008 ANNEL LEDESMA DO 787.02 NAUSEA ALONE 03/01/2008 ANNEL LEDESMA DO 079.99 VIRAL SYNDROME 03/01/2008 ANNEL LEDESMA DO 787.02 NAUSEA ALONE 03/01/2008 ANNEL LEDESMA DO 079.99 VIRAL SYNDROME 03/01/2008 ANNEL LEDESMA DO 787.02 NAUSEA ALONE 03/01/2008 ADNREW LEDESMA DOA K 079.99 VIRAL SYNDROME 03/01/2008 ANNEL LEDESMA DO K 787.02 NAUSEA ALONE 03/01/2008 MAYRA MONTAÑO MD 079.99 VIRAL SYNDROME 03/01/2008 MAYRA MONTAÑO MD 787.02 NAUSEA ALONE 03/01/2008 ANNEL LEDESMA DO 079.99 VIRAL SYNDROME 03/01/2008 ANNEL LEDESMA DO 787.02 NAUSEA ALONE 03/01/2008 ANNEL LEDESMA DO 079.99 VIRAL SYNDROME 03/01/2008 ANNEL LEDESMA DO 787.02 NAUSEA ALONE 03/01/2008 FARR CASHERO THREAD CHECKER, BHARGAV N 079.99 VIRAL SYNDROME 03/01/2008 FARR CASHERO THREAD CHECKER, BHARGAV N 787.02 NAUSEA ALONE 03/01/2008 ANNEL LEDESMA DO K 079.99 VIRAL SYNDROME 03/01/2008 LEDESMA ANNEL BONDS K 787.02 NAUSEA ALONE 03/01/2008 CM THREAD CHECKER, JOEL J 079.99 VIRAL SYNDROME 03/01/2008 CM THREAD CHECKER, JOEL J 787.02 NAUSEA ALONE 03/01/2008 CM THREAD CHECKER, JOEL J 079.99 VIRAL SYNDROME 03/01/2008 CM THREAD CHECKER, JOEL J 787.02 NAUSEA ALONE 03/01/2008 CM THREAD CHECKER, JOEL J 079.99 VIRAL SYNDROME 03/01/2008 CM THREAD CHECKER, JOEL J 787.02 NAUSEA ALONE 03/01/2008 CM THREAD CHECKER, JOEL J 079.99 VIRAL SYNDROME 03/01/2008 CM THREAD CHECKER, JOEL J 787.02 NAUSEA ALONE 03/01/2008 CM THREAD CHECKER, JOEL J 079.99 VIRAL SYNDROME 03/01/2008 CM THREAD CHECKER, JOEL J 787.02 NAUSEA ALONE 03/14/2013 ANNEL LEDESMA DO [...] USE OF OTHER MEDICATIONS 03/14/2013 ANNEL LEDESMA DO8.69 LONG-TERM (CURRENT) USE OF OTHER MEDICATIONS 03/14/2013 [...] ANNEL LEDESMA DO 724.5 BACKACHE UNSPECIFIED 04/04/2013 ANNEL LEDESMA DO 729.1 MYALGIA AND MYOSITIS UNSPECIFIED 04/04/2013 ANNEL LEDESMA DO 724.5 BACKACHE UNSPECIFIED 04/04/2013 ANNEL LEDESMA DO 729.1 MYALGIA AND MYOSITIS UNSPECIFIED 04/04/2013 MAYRA MONTAÑO MD 724.5 BACKACHE UNSPECIFIED 04/04/2013 MAYRA MONTAÑO MD 729.1 MYALGIA AND MYOSITIS UNSPECIFIED 04/04/2013 ANNEL LEDESMA DO 724.5 BACKACHE UNSPECIFIED 04/04/2013 ANNEL LEDESMA DO 729.1 MYALGIA AND MYOSITIS UNSPECIFIED 04/04/2013 ANNEL LEDESMA DO 724.5 BACKACHE UNSPECIFIED 04/04/2013 ANNEL LEDESMA DO 729.1 MYALGIA AND MYOSITIS UNSPECIFIED 04/04/2013 BHARGAV ROJAS APRN N 724.5 BACKACHE UNSPECIFIED 04/04/2013 BHARGAV ROJAS APRN N 729.1 MYALGIA AND MYOSITIS UNSPECIFIED 04/04/2013 ANNEL LEDESMA DO K 724.5 BACKACHE UNSPECIFIED 04/04/2013 ANNEL LEDESMA DO 729.1 MYALGIA AND MYOSITIS UNSPECIFIED 04/04/2013 JOEL CM APRN 724.5 BACKACHE UNSPECIFIED 04/04/2013 JOEL CM APRN 729.1 MYALGIA AND MYOSITIS UNSPECIFIED 04/04/2013 JOEL CM APRN 724.5 BACKACHE UNSPECIFIED 04/04/2013 JOEL CM APRN 729.1 MYALGIA AND MYOSITIS UNSPECIFIED 04/04/2013 JOEL CM APRN 724.5 BACKACHE UNSPECIFIED 04/04/2013 JOEL CM APRN 729.1 MYALGIA AND MYOSITIS UNSPECIFIED 04/04/2013 JOEL CM APRN J 724.5 BACKACHE UNSPECIFIED 04/04/2013 JOEL CM APRN J 729.1 MYALGIA AND MYOSITIS UNSPECIFIED 04/04/2013 JOEL CM APRN 724.5 BACKACHE UNSPECIFIED 04/04/2013 JOEL CM APRN 729.1 MYALGIA AND MYOSITIS UNSPECIFIED 04/25/2013 CALLIE BONDS ANNEL K 786.50 UNSPECIFIED CHEST PAIN 04/25/2013 DANYEL CONNELL, MAYRA 786.50 UNSPECIFIED CHEST PAIN 04/25/2013 LEDESMA ANDREW BONDSA K 786.50 UNSPECIFIED CHEST PAIN 04/25/2013 LEDESMA ANDREW BONDSA K 786.50 UNSPECIFIED CHEST PAIN 04/25/2013 BHARGAV ROJAS APRN N 786.50 UNSPECIFIED CHEST PAIN 04/25/2013 LEDESMA ANNEL BONDS K 786.50 UNSPECIFIED CHEST PAIN 04/25/2013 JOEL CM APRN 786.50 UNSPECIFIED CHEST PAIN 04/25/2013 JOEL CM APRN 786.50 UNSPECIFIED CHEST PAIN 04/25/2013 JOEL CM APRN 786.50 UNSPECIFIED CHEST PAIN 04/25/2013 JOEL CM APRN 786.50 UNSPECIFIED CHEST PAIN 04/25/2013 JOEL CM APRN 786.50 UNSPECIFIED CHEST PAIN 07/10/2013 CALLIE BONDS ANNEL K 530.81 ESOPHAGEAL REFLUX 07/10/2013 CALLIE BONDS ANNEL K 530.81 ESOPHAGEAL REFLUX 07/10/2013 BHARGAV ROJAS APRN N 530.81 ESOPHAGEAL REFLUX 07/10/2013 LEDESMA DO ANNEL K 530.81 ESOPHAGEAL REFLUX 07/10/2013 JOEL CM APRN 530.81 ESOPHAGEAL REFLUX 07/10/2013 JOEL CM APRN 530.81 ESOPHAGEAL REFLUX 07/10/2013 JOEL CM APRN 530.81 ESOPHAGEAL REFLUX 07/10/2013 JOEL CM APRN 530.81 ESOPHAGEAL REFLUX 07/10/2013 JOEL CM APRN 530.81 ESOPHAGEAL REFLUX 07/19/2013 CALLIE DO ANNEL K 250.00 DIABETES II CONTROLLED (UNCOMPLICATED) 07/19/2013 LEDESMA DO, ANNEL K 401.9 HYPERTENSION, UNSPECIFIED ESSENTIAL 07/19/2013 LEDESMA DO ANNEL K 785.1 PALPITATIONS 07/19/2013 FARR BLURENUKA MOON APRNCY N 250.00 DIABETES II CONTROLLED (UNCOMPLICATED) 07/19/2013 RENUKA ROJAS APRNCY N 401.9 HYPERTENSION, UNSPECIFIED ESSENTIAL 07/19/2013 FARR BLURENUKA MOON APRNCY N 785.1 PALPITATIONS 07/19/2013 CALLIE BONDS ANNEL K 250.00 DIABETES II CONTROLLED (UNCOMPLICATED) 07/19/2013 LEDESMA DO ANNEL K 401.9 ESSENTIAL HYPERTENSION 07/19/2013 LEDESMA DO, ANNEL K 785.1 PALPITATIONS 07/19/2013 JOEL CM APRN 250.00 DIABETES II CONTROLLED (UNCOMPLICATED) 07/19/2013 JOEL CM APRN 401.9 ESSENTIAL HYPERTENSION 07/19/2013 JOEL CM APRN 785.1 PALPITATIONS 07/19/2013 JOEL CM APRN 250.00 DIABETES II CONTROLLED (UNCOMPLICATED) 07/19/2013 JOEL CM APRN 401.9 ESSENTIAL HYPERTENSION 07/19/2013 JOEL CM APRN 785.1 PALPITATIONS 07/19/2013 JOEL CM APRN 250.00 DIABETES II CONTROLLED (UNCOMPLICATED) 07/19/2013 JOEL CM APRN 401.9 ESSENTIAL HYPERTENSION 07/19/2013 JOEL CM APRN 785.1 PALPITATIONS 07/19/2013 JOEL CM APRN 250.00 DIABETES II CONTROLLED (UNCOMPLICATED) 07/19/2013 JOEL CM APRN 401.9 ESSENTIAL HYPERTENSION 07/19/2013 JOEL CM APRN 785.1 PALPITATIONS 07/19/2013 JOEL CM APRN 250.00 DIABETES II CONTROLLED (UNCOMPLICATED) 07/19/2013 JOEL CM APRN 401.9 ESSENTIAL HYPERTENSION [...] FACP CCDS Ot 414.01 CORONARY ATHEROSCLEROSIS OF [place] CORON 07/26/2013 FLORY CONNELL FACC ALI FACP CCDS Ot 414.4 CORONARY ATHEROSCLEROSIS DUE TO [place] 07/26/2013 NURYS RUTH MD, FACC FACP CCDS Ot 786.59 CHEST PAIN NEC 07/26/2013 FLORY CONNELL FACC, NURYS FACP CCDS Ot V17.3 FAM HX-ISCHEM HEART DIS 07/26/2013 FLORY CONNELL FACC, ALI FACP CCDS Ot V58.67 LONG-TERM (CURRENT) USE OF INSULIN 07/26/2013 NURYS RUTH MD, FACC FACP CCDS Ot V58.69 OT MED,LT,CURRENT USE 09/06/2013 BHARGAV ROJAS APRN N 466.0 ACUTE BRONCHITIS 09/06/2013 BHARGAV ROJAS APRN N 478.19 OTHER DISEASES OF NASAL CAVITY AND SINUSES 09/06/2013 BHARGAV ROJAS APRN N 786.2 COUGH 09/06/2013 ANDREW LEDESMA DOA K 466.0 ACUTE BRONCHITIS 09/06/2013 ANNEL LEDESMA DO K 478.19 OTHER DISEASES OF NASAL CAVITY AND SINUSES 09/06/2013 ANDREW LEDESMA DOA K 786.2 COUGH 09/06/2013 JOEL CM APRN [...] APRN 786.2 COUGH 10/09/2013 ANNEL LEDESMA DO 244.9 HYPOTHYROIDISM 10/09/2013 JOEL CM APRN 244.9 [...] UNSPECIFIED MEDICINAL AGENT 03/13/2014 FLORY CONNELL FACC, NURYS FACP CCDS Ot 250.00 DIAB TASHIA WO COMPL, TYPE II OR UNSPEC TY 03/13/2014 FLORY CONNELL FACC, ALI FACP CCDS Ot 272.4 HYPERLIPIDEMIA NEC/NOS 03/13/2014 FLORY CONNELL FACC, ALI FACP CCDS Ot 401.9 HYPERTENSION NOS 03/13/2014 FLORY CONNELL FACC, ALI FACP CCDS Ot 414.01 CORONARY ATHEROSCLEROSIS OF [place] CORON 03/13/2014 FLORY CONNELL FACC, ALI FACP CCDS Ot 414.4 CORONARY ATHEROSCLEROSIS DUE TO [place] 03/13/2014 FLORY CONNELL FACC, ALI FACP CCDS Ot 441.4 ABDOM AORTIC ANEURYSM 03/13/2014 FLORY CONNELL FACC, NURYS FACP CCDS Ot 786.50 CHEST PAIN NOS 03/13/2014 FLORY CONNELL FACC, ALI FACP CCDS Ot V15.82 HISTORY OF TOBACCO USE 03/13/2014 FLORY CONNELL FACC, NURYS FACP CCDS Ot V45.82 PERCUTANEOUS TRANSLUM CORON ANGIOPLASTY 03/13/2014 FLORY CONNELL FACC, ALI FACP CCDS Ot V58.67 LONG-TERM (CURRENT) USE OF INSULIN 03/13/2014 FLORY CONNELL FACC ALI FACP CCDS Ot V58.69 OT MED,LT,CURRENT USE 03/22/2014 BAIMA, SANYA L [employer] OFFICER Ot 272.4 03/22/2014 BAIMA, SANYA L [employer] OFFICER Ot 790.5 03/22/2014 BAIMA, SANYA L [employer] OFFICER Ot 272.4 03/22/2014 BAIMA, SANYA L [employer] OFFICER Ot 790.5 03/22/2014 BAIMA, SANYA L [employer] OFFICER Ot 272.4 03/22/2014 BAIMA, SANYA L [employer] OFFICER Ot 790.5 05/28/2014 BAIMA, SANYA L [employer] OFFICER Ot 272.4 05/28/2014 BAIMA, SANYA L [employer] OFFICER Ot 790.5 05/28/2014 BAIMA, SANYA L [employer] OFFICER Ot 272.4 05/28/2014 BAIMA, SANYA L [employer] OFFICER Ot 790.5 06/26/2014 BAIMA, SANYA L [employer] OFFICER Ot 272.4 06/26/2014 BAIMA, SANYA L [employer] OFFICER Ot 790.5 06/26/2014 BAIMA, SANYA L [employer] OFFICER Ot 272.4 06/26/2014 BAIMA, SANYA L [employer] OFFICER Ot 790.5 06/26/2014 BAIMA, SANYA L [employer] OFFICER Ot 272.4 06/26/2014 BAIMA, SANYA L [employer] OFFICER Ot 790.5 06/26/2014 BAIMA, SANYA L [employer] OFFICER Ot 272.4 06/26/2014 BAIMA, SANYA L [employer] OFFICER Ot 790.5 10/09/2014 BAIMA, SANYA L [employer] OFFICER Ot 272.4 10/09/2014 BAIMA, SANYA L [employer] OFFICER Ot 790.5 10/09/2014 BAIMA, SANYA L [employer] OFFICER Ot 272.4 10/09/2014 BAIMA, SANYA L [employer] OFFICER Ot 790.5 10/09/2014 TRAVIS WOO THREAD CHECKER Ot 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, LOCALIZED 10/09/2014 TRAVIS WOO THREAD CHECKER Ot 525.9 DENTAL DISORDER NOS 01/22/2015 BAIMA, SANYA L [employer] OFFICER Ot 272.4 01/22/2015 BAIMA, SANYA L [employer] OFFICER Ot 790.5 01/22/2015 BAIMA, SANYA L [employer] OFFICER Ot 272.4 01/22/2015 BAIMA, SANYA L [employer] OFFICER Ot 790.5 02/13/2015 HUMBERTO CUI W [employer] OFFICER Ot Z12.31 02/13/2015 BAIMA, SANYA L [employer] OFFICER Ot E78.5 02/13/2015 BAIMA, SANYA L [employer] OFFICER Ot I10 02/13/2015 BAIMA, SANYA L [employer] OFFICER Ot I25.10 02/19/2015 HUMBERTO CUI W [employer] OFFICER Ot Z12.31 02/19/2015 QUICKRONNIEY W [employer] OFFICER Ot Z12.31 02/19/2015 BAIMA, SANYA L [employer] OFFICER Ot E78.5 02/19/2015 BAIMA, SANYA L [employer] OFFICER Ot I10 02/19/2015 BAIMA, SANYA L [employer] OFFICER Ot I25.10 11/28/2015 BAIMA, SANYA L [employer] OFFICER Ot 272.4 HYPERLIPIDEMIA NEC/NOS 11/28/2015 BAIMA, SANYA L [employer] OFFICER Ot 790.5 ABN SERUM ENZY LEVEL NEC 11/28/2015 BAIMA, SANYA L [employer] OFFICER Ot 272.4 HYPERLIPIDEMIA NEC/NOS 11/28/2015 BAIMA, SANYA L [employer] OFFICER Ot 790.5 ABN SERUM ENZY LEVEL NEC 11/28/2015 HUMBERTO CUI W [employer] OFFICER Ot Z12.31 ENCNTR SCREEN MAMMOGRAM FOR MALIGNANT NE 11/28/2015 BAIMA, SANYA L [employer] OFFICER Ot E78.5 HYPERLIPIDEMIA, UNSPECIFIED 11/28/2015 BAIMA, SANYA L [employer] OFFICER Ot I10 ESSENTIAL (PRIMARY) HYPERTENSION 11/28/2015 BAIMA, SANYA L [employer] OFFICER Ot I25.10 ATHSCL HEART DISEASE OF [place] CORONARY 11/28/2015 BAIMA, SANYA L [employer] OFFICER Ot 272.4 HYPERLIPIDEMIA NEC/NOS 11/28/2015 BAIMA, SANYA L [employer] OFFICER Ot 790.5 ABN SERUM ENZY LEVEL NEC 11/28/2015 BAIMA, SANYA L [employer] OFFICER Ot 272.4 HYPERLIPIDEMIA NEC/NOS 11/28/2015 BAIMA, SANYA L [employer] OFFICER Ot 790.5 ABN SERUM ENZY LEVEL NEC 11/28/2015 BASILIAHUMBERTO W [employer] OFFICER Ot Z12.31 ENCNTR SCREEN MAMMOGRAM FOR MALIGNANT NE 11/28/2015 BAIMA, SANYA L [employer] OFFICER Ot E78.5 HYPERLIPIDEMIA, UNSPECIFIED 11/28/2015 BAIMA, SANYA L [employer] OFFICER Ot I10 ESSENTIAL (PRIMARY) HYPERTENSION 11/28/2015 BAIMA, SANYA L [employer] OFFICER Ot I25.10 ATHSCL HEART DISEASE OF [place] CORONARY 11/29/2015 FLORY CONNELL FACC, NURYS FACP CCDS Ot M79.89 OTHER SPECIFIED SOFT TISSUE DISORDERS 12/06/2015 FLORY CONNELL FACC, NURYS FACP CCDS Ot E11.9 TYPE 2 DIABETES MELLITUS WITHOUT COMPLIC 12/06/2015 NURYS RUTH MD, FACC FACP CCDS Ot E78.4 OTHER HYPERLIPIDEMIA 12/06/2015 FLORY CONNELL FACC, NURYS FACP CCDS Ot I10 ESSENTIAL (PRIMARY) HYPERTENSION 12/06/2015 FLORY CONNELL FACC, NURYS FACP CCDS Ot I25.10 ATHSCL HEART DISEASE OF [place] CORONARY 12/06/2015 FLORY CONNELL FACC, NURYS FACP CCDS Ot R00.2 PALPITATIONS 12/06/2015 FLORY CONNELL FACC, NURYS FACP CCDS Ot E11.9 TYPE 2 DIABETES MELLITUS WITHOUT COMPLIC 12/06/2015 FLORY CONNELL FACC, ALI FACP CCDS Ot E78.4 OTHER HYPERLIPIDEMIA 12/06/2015 FLORY CONNELL FACC, ALI FACP CCDS Ot I10 ESSENTIAL (PRIMARY) HYPERTENSION 12/06/2015 FLORY CAPPSC, ALI FACP CCDS Ot I25.10 ATHSCL HEART DISEASE OF [place] CORONARY 12/06/2015 FLORY CONNELL FACC, ALI FACP CCDS Ot R00.2 PALPITATIONS 12/11/2015 FLORY CAPPSC, ALI FACP CCDS Ot E11.9 TYPE 2 DIABETES MELLITUS WITHOUT COMPLIC 12/11/2015 FLORY CAPPSC, ALI FACP CCDS Ot E78.4 OTHER HYPERLIPIDEMIA 12/11/2015 FLORY CAPPSC, ALI FACP CCDS Ot I10 ESSENTIAL (PRIMARY) HYPERTENSION 12/11/2015 FLORY CAPPSC, ALI FACP CCDS Ot I25.10 ATHSCL HEART DISEASE OF [place] CORONARY 12/11/2015 FLORY CONNELL FACC, ALI FACP [...] CCDS Ot I25.10 ATHSCL HEART DISEASE OF [place] CORONARY 12/18/2015 FLORY CONNELL FACC, ALI FACP CCDS Ot R00.2 PALPITATIONS 12/18/2015 FLORY CONNELL FACC, ALI FACP CCDS Ot E11.9 TYPE 2 DIABETES MELLITUS WITHOUT COMPLIC 12/18/2015 LFORY CONNELL FACC, ALI FACP CCDS Ot E78.4 OTHER HYPERLIPIDEMIA 12/18/2015 FLORY CAPPSC, ALI FACP CCDS Ot I10 ESSENTIAL (PRIMARY) HYPERTENSION 12/18/2015 FLORY CONNELL FACC, ALI FACP CCDS Ot I25.10 ATHSCL HEART DISEASE OF [place] CORONARY 12/18/2015 FLORY CONNELL FACC, ALI FACP CCDS Ot R00.2 PALPITATIONS 12/27/2015 FLORY CONNELL FACC, ALI FACP CCDS Ot E11.9 TYPE 2 DIABETES MELLITUS WITHOUT COMPLIC 12/27/2015 FLORY CONNELL FACC, ALI FACP CCDS Ot E78.4 OTHER HYPERLIPIDEMIA 12/27/2015 FLORY CAPPSC, ALI FACP CCDS Ot I10 ESSENTIAL (PRIMARY) HYPERTENSION 12/27/2015 FLORY CONNELL FACC, ALI FACP CCDS Ot I25.10 ATHSCL HEART DISEASE OF [place] CORONARY 12/27/2015 FLORY CONNELL FACC, ALI FACP CCDS Ot I73.9 PERIPHERAL VASCULAR DISEASE, UNSPECIFIED 12/27/2015 FLORY CONNELL FACC, ALI FACP CCDS Ot M79.89 OTHER SPECIFIED SOFT TISSUE DISORDERS 12/27/2015 FLORY CONNELL FACC, ALI FACP CCDS Ot R00.2 PALPITATIONS 12/30/2015 FLORY CONNELL FACC, ALI FACP CCDS Ot E11.9 TYPE 2 DIABETES MELLITUS WITHOUT COMPLIC 12/30/2015 FLORY CONNELL FACC, ALI FACP CCDS Ot E78.4 OTHER HYPERLIPIDEMIA 12/30/2015 FLORY CONNELL FACC, ALI FACP CCDS Ot I10 ESSENTIAL (PRIMARY) HYPERTENSION 12/30/2015 FLORY CONNELL FACC, ALI FACP CCDS Ot I25.10 ATHSCL HEART DISEASE OF [place] CORONARY 12/30/2015 FLORY CONNELL FACC, NURYS FACP CCDS Ot R00.2 PALPITATIONS 12/30/2015 FLORY CONNELL FACC, NURYS FACP CCDS Ot E11.9 TYPE 2 DIABETES MELLITUS WITHOUT COMPLIC 12/30/2015 FLORY CONNELL FACC, ALI FACP CCDS Ot E78.4 OTHER HYPERLIPIDEMIA 12/30/2015 FLORY CONNELL FACC, ALI FACP CCDS Ot I10 ESSENTIAL (PRIMARY) HYPERTENSION 12/30/2015 FLORY CONNELL FACC, ALI FACP CCDS Ot I25.10 ATHSCL HEART DISEASE OF [place] CORONARY 12/30/2015 FLORY CONNELL FACC, ALI FACP CCDS Ot R00.2 PALPITATIONS 01/30/2016 FLORY CONNELL FACC, ALI FACP CCDS Ot E11.9 TYPE 2 DIABETES MELLITUS WITHOUT COMPLIC 01/30/2016 FLORY CONNELL FACC, ALI FACP CCDS Ot E78.5 HYPERLIPIDEMIA, UNSPECIFIED 01/30/2016 FLORY CAPPS, ALI FACP CCDS Ot I10 ESSENTIAL (PRIMARY) HYPERTENSION 01/30/2016 FLORY CONNELL FACC, ALI FACP CCDS Ot I73.9 PERIPHERAL VASCULAR DISEASE, UNSPECIFIED 01/30/2016 FLORY CAPPS, ALI FACP CCDS Ot K21.9 GASTRO-ESOPHAGEAL REFLUX DISEASE WITHOUT 01/30/2016 FLORY CONNELL [facility], ALI FACP CCDS Ot R00.2 PALPITATIONS 01/30/2016 FLORY CONNELL [facility], ALI FACP CCDS Ot Z79.02 NURSING HOME (CURRENT) USE OF ANTITHROMBOTI 01/30/2016 FLORY CONNELL [facility], ALI FACP CCDS Ot Z79.4 [employer] (CURRENT) USE OF INSULIN 01/30/2016 FLORY CAPPS, ALI FACP CCDS Ot Z79.899 OTHER NURSING HOME (CURRENT) DRUG THERAPY 02/20/2016 FLORY CONNELL FACC, NURYS FACP CCDS Ot E11.9 TYPE 2 DIABETES MELLITUS WITHOUT COMPLIC 02/20/2016 FLORY CAPPS, ALI FACP CCDS Ot E78.5 HYPERLIPIDEMIA, UNSPECIFIED 02/20/2016 FLORY CONNELL [facility], ALI FACP CCDS Ot I10 ESSENTIAL (PRIMARY) HYPERTENSION 02/20/2016 FLORY CAPPS, ALI FACP CCDS Ot I73.9 PERIPHERAL VASCULAR DISEASE, UNSPECIFIED 02/20/2016 FLORY CAPPS, ALI FACP CCDS Ot K21.9 GASTRO-ESOPHAGEAL REFLUX DISEASE WITHOUT 02/20/2016 FLORY CAPPS, ALI FACP CCDS Ot R00.2 PALPITATIONS 02/20/2016 FLORY CAPPS, ALI FACP CCDS Ot Z79.02 [employer] (CURRENT) USE OF ANTITHROMBOTI 02/20/2016 FLORY CONNELL [facility], ALI FACP CCDS Ot Z79.4 NURSING HOME (CURRENT) USE OF INSULIN 02/20/2016 FLORY CONNELL FACC, ALI FACP CCDS Ot Z79.899 OTHER [employer] (CURRENT) DRUG THERAPY 03/12/2016 SANYA CASTILLO [employer] OFFICER Ot 272.4 HYPERLIPIDEMIA NEC/NOS 03/12/2016 SANYA CASTLILO [employer] OFFICER Ot 790.5 ABN SERUM ENZY LEVEL NEC 03/12/2016 SANYA CASTILLO [employer] Ot 272.4 HYPERLIPIDEMIA NEC/NOS 03/12/2016 SANYA CASTILLO [employer]IC[employer] Ot 790.5 ABN SERUM ENZY LEVEL NEC 03/12/2016 HUMBERTO CUI [employer]ER Ot Z12.31 ENCNTR SCREEN MAMMOGRAM FOR MALIGNANT NE 03/12/2016 SANYA CASTILLO [employer] OFFIC[employer] Ot E78.5 HYPERLIPIDEMIA, UNSPECIFIED 03/12/2016 SANYA CASTILLO [employer] Ot I10 ESSENTIAL (PRIMARY) HYPERTENSION 03/12/2016 SANYA CASTILLO [employer] OFFIC[employer] Ot I25.10 ATHSCL HEART DISEASE OF [place] CORONARY 03/12/2016 FLORY CONNELL FACC, ALI FACP CCDS Ot E11.9 TYPE 2 DIABETES MELLITUS WITHOUT COMPLIC 03/12/2016 FLORY CONNELL FACC, ALI FACP CCDS Ot E78.4 OTHER HYPERLIPIDEMIA 03/12/2016 FLORY CONNELL FACC, ALI FACP CCDS Ot I10 ESSENTIAL (PRIMARY) HYPERTENSION 03/12/2016 FLORY CONNELL FACC, ALI FACP CCDS Ot I25.10 ATHSCL HEART DISEASE OF [place] CORONARY 03/12/2016 FLORY CONNELL FACC, ALI FACP CCDS Ot I73.9 PERIPHERAL VASCULAR DISEASE, UNSPECIFIED 03/12/2016 FLORY CONNELL FACC, ALI FACP CCDS Ot M79.89 OTHER SPECIFIED SOFT TISSUE DISORDERS 03/12/2016 FLORY CONNELL FACC, NURYS FACP CCDS Ot R00.2 PALPITATIONS 03/12/2016 FLORY CONNELL FACC, NURYS FACP CCDS Ot E11.9 TYPE 2 DIABETES MELLITUS WITHOUT COMPLIC 03/12/2016 FLORY CONNELL FACC, NURYS FACP CCDS Ot E78.4 OTHER HYPERLIPIDEMIA 03/12/2016 FLORY CONNELL FACC, ALI FACP CCDS Ot I10 ESSENTIAL (PRIMARY) HYPERTENSION 03/12/2016 FLORY CONNELL FACC, ALI FACP CCDS Ot I25.10 ATHSCL HEART DISEASE OF [place] CORONARY 03/12/2016 FLORY CONNELL FACC, ALI FACP CCDS Ot R00.2 PALPITATIONS 03/12/2016 FLORY CONNELL FACC, ALI FACP CCDS Ot E11.9 TYPE 2 DIABETES MELLITUS WITHOUT COMPLIC 03/12/2016 FLORY CONNELL FACC, NURYS FACP CCDS Ot E78.4 OTHER HYPERLIPIDEMIA 03/12/2016 FLORY CONNELL FACC, ALI FACP CCDS Ot I10 ESSENTIAL (PRIMARY) HYPERTENSION 03/12/2016 FLORY CONNELL FACC, ALI FACP CCDS Ot I25.10 ATHSCL HEART DISEASE OF [place] CORONARY 03/12/2016 FLORY CONNELL FACC, ALI FACP CCDS Ot R00.2 PALPITATIONS 03/12/2016 FLORY CONNELL FACC, ALI FACP CCDS Ot E11.9 TYPE 2 DIABETES MELLITUS WITHOUT COMPLIC 03/12/2016 FLORY CONNELL FACC, ALI FACP CCDS Ot E78.4 OTHER HYPERLIPIDEMIA 03/12/2016 FLORY CONNELL FACC, ALI FACP CCDS Ot I10 ESSENTIAL (PRIMARY) HYPERTENSION 03/12/2016 FLORY CONNELL FACC, ALI FACP CCDS Ot I25.10 ATHSCL HEART DISEASE OF [place] CORONARY 03/12/2016 FLORY CONNELL FACC, NURYS FACP CCDS Ot I73.9 PERIPHERAL VASCULAR DISEASE, UNSPECIFIED 03/12/2016 FLORY CONNELL FACC, ALI FACP CCDS Ot M79.89 OTHER SPECIFIED SOFT TISSUE DISORDERS 03/12/2016 FLORY CONNELL FACC, NURYS FACP CCDS Ot R00.2 PALPITATIONS 03/12/2016 FLORY CONNELL FACC, NURYS FACP CCDS Ot E11.9 TYPE 2 DIABETES MELLITUS WITHOUT COMPLIC 03/12/2016 FLORY CONNELL FACC, NURYS FACP CCDS Ot E78.5 HYPERLIPIDEMIA, UNSPECIFIED 03/12/2016 FLORY CONNELL FACC, ALI FACP CCDS Ot I10 ESSENTIAL (PRIMARY) HYPERTENSION 03/12/2016 FLORY CONNELL FACC, ALI FACP CCDS Ot I73.9 PERIPHERAL VASCULAR DISEASE, UNSPECIFIED 03/12/2016 FLORY CONNELL FACC, ALI FACP CCDS Ot K21.9 GASTRO-ESOPHAGEAL REFLUX DISEASE WITHOUT 03/12/2016 FLORY CONNELL FACC, NURYS FACP CCDS Ot R00.2 PALPITATIONS 03/12/2016 FLORY CONNELL FACC, NURYS FACP CCDS Ot Z79.02 NURSING HOME (CURRENT) USE OF ANTITHROMBOTI 03/12/2016 FOLRY CONNELL FACC, NURYS FACP CCDS Ot Z79.4 [employer]ER (CURRENT) USE OF INSULIN 03/12/2016 FLORY CONNELL FACC, NURYS FACP CCDS Ot Z79.899 OTHER [employer]ER (CURRENT) DRUG THERAPY 03/23/2016 FLORY CONNELL FACC, ALI FACP CCDS Ot E11.9 TYPE 2 DIABETES MELLITUS WITHOUT COMPLIC 03/23/2016 FLORY CONNELL [facility], ALI FACP CCDS Ot E78.4 OTHER HYPERLIPIDEMIA 03/23/2016 FLORY CONNELL [facility], ALI FACP CCDS Ot I10 ESSENTIAL (PRIMARY) HYPERTENSION 03/23/2016 FLORY CONNELL [facility], ALI FACP CCDS Ot I25.10 ATHSCL HEART DISEASE OF [place] CORONARY 03/23/2016 FLORY CONNELL [facility], ALI FACP CCDS Ot I73.9 PERIPHERAL VASCULAR DISEASE, UNSPECIFIED 03/23/2016 FLORY CONNELL [facility], ALI FACP CCDS Ot M79.89 OTHER SPECIFIED SOFT TISSUE DISORDERS 03/23/2016 FLORY CONNELL [facility], ALI FACP CCDS Ot R00.2 PALPITATIONS 03/24/2016 FLORY CONNELL [facility], ALI FACP CCDS Ot E11.9 TYPE 2 DIABETES MELLITUS WITHOUT COMPLIC 03/24/2016 FLORY CONNELL [facility], ALI FACP CCDS Ot E78.4 OTHER HYPERLIPIDEMIA 03/24/2016 FLORY CONNELL [facility], ALI FACP CCDS Ot I10 ESSENTIAL (PRIMARY) HYPERTENSION 03/24/2016 FLORY CONNELL [facility], ALI FACP CCDS Ot I25.10 ATHSCL HEART DISEASE OF [place] CORONARY 03/24/2016 FLORY CONNELL [facility], ALI FACP CCDS Ot I73.9 PERIPHERAL VASCULAR DISEASE, UNSPECIFIED 03/24/2016 FLORY CONNELL [facility], ALI FACP CCDS Ot M79.89 OTHER SPECIFIED SOFT TISSUE DISORDERS 03/24/2016 FLORY CONNELL [facility], ALI FACP CCDS Ot R00.2 PALPITATIONS 08/17/2016 BAIJODIE, SANYA L [employer] OFFICER Ot 272.4 HYPERLIPIDEMIA NEC/NOS 08/17/2016 BAIMA, SANYA L [employer] OFFIC[employer] Ot 790.5 ABN SERUM ENZY LEVEL NEC 08/17/2016 BAIMA, SNAYA L [employer] OFFIC[employer] Ot 272.4 HYPERLIPIDEMIA NEC/NOS 08/17/2016 BAIMA, SANYA L [employer] OFFIC[employer] Ot 790.5 ABN SERUM ENZY LEVEL NEC 08/17/2016 HUMBERTO CUI W [employer] OFFICER Ot Z12.31 ENCNTR SCREEN MAMMOGRAM FOR MALIGNANT NE 08/17/2016 JONATHAN, SANYA L [employer] OFFICER Ot E78.5 HYPERLIPIDEMIA, UNSPECIFIED 08/17/2016 BAIMA, SANYA L [employer] OFFICER Ot I10 ESSENTIAL (PRIMARY) HYPERTENSION 08/17/2016 SANYA CASTILLO [employer] OFFICER Ot I25.10 ATHSCL HEART DISEASE OF [place] CORONARY 08/17/2016 FLORY CONNELL FACC, ALI FACP CCDS Ot E11.9 TYPE 2 DIABETES MELLITUS WITHOUT COMPLIC 08/17/2016 FLORY CONNELL FACC, ALI FACP CCDS Ot E78.4 OTHER HYPERLIPIDEMIA 08/17/2016 FLORY CONNELL FACC, ALI FACP CCDS Ot I10 ESSENTIAL (PRIMARY) HYPERTENSION 08/17/2016 FLORY CONNELL FACC, ALI FACP CCDS Ot I25.10 ATHSCL HEART DISEASE OF [place] CORONARY 08/17/2016 FLORY CAPPSC, ALI FACP CCDS Ot I73.9 PERIPHERAL VASCULAR DISEASE, UNSPECIFIED 08/17/2016 FLORY CONNELL FACC, ALI FACP CCDS Ot M79.89 OTHER SPECIFIED SOFT TISSUE DISORDERS 08/17/2016 FLORY CONNELL FACC, ALI FACP CCDS Ot R00.2 PALPITATIONS 08/17/2016 FLORY CONNELL FACC, ALI FACP CCDS Ot E11.9 TYPE 2 DIABETES MELLITUS WITHOUT COMPLIC 08/17/2016 FLORY CONNELL FACC, ALI FACP CCDS Ot E78.4 OTHER HYPERLIPIDEMIA 08/17/2016 FLORY CONNELL FACC, ALI FACP CCDS Ot I10 ESSENTIAL (PRIMARY) HYPERTENSION 08/17/2016 FLORY CONNELL FACC, ALI FACP CCDS Ot I25.10 ATHSCL HEART DISEASE OF [place] CORONARY 08/17/2016 FLORY CONNELL FACC, ALI FACP CCDS Ot R00.2 PALPITATIONS 08/17/2016 FLORY CONNELL FACC, NURYS FACP CCDS Ot E11.9 TYPE 2 DIABETES MELLITUS WITHOUT COMPLIC 08/17/2016 FLORY CONNELL FACC, ALI FACP CCDS Ot E78.4 OTHER HYPERLIPIDEMIA 08/17/2016 FLORY CONNELL FACC, ALI FACP CCDS Ot I10 ESSENTIAL (PRIMARY) HYPERTENSION 08/17/2016 FLORY CONNELL FACC, ALI FACP CCDS Ot I25.10 ATHSCL HEART DISEASE OF [place] CORONARY 08/17/2016 FLORY CONNELL FACC, ALI FACP CCDS Ot R00.2 PALPITATIONS 08/17/2016 FLORY CONNELL FACC, ALI FACP CCDS Ot E11.9 TYPE 2 DIABETES MELLITUS WITHOUT COMPLIC 08/17/2016 FLORY CONNELL FACC, ALI FACP CCDS Ot E78.5 HYPERLIPIDEMIA, UNSPECIFIED 08/17/2016 FLORY CONNELL FACC, ALI FACP CCDS Ot I10 ESSENTIAL (PRIMARY) HYPERTENSION 08/17/2016 FLORY CONNELL FACC, ALI FACP CCDS Ot I73.9 PERIPHERAL VASCULAR DISEASE, UNSPECIFIED 08/17/2016 FLORY CONNELL FACC, NURYS FACP CCDS Ot K21.9 GASTRO-ESOPHAGEAL REFLUX DISEASE WITHOUT 08/17/2016 FLORY CONNELL FACC, NURYS FACP CCDS Ot R00.2 PALPITATIONS 08/17/2016 FLORY CONNELL FACC, ALI FACP CCDS Ot Z79.02 [employer] (CURRENT) USE OF ANTITHROMBOTI 08/17/2016 NURYS RUTH MD, FACC FACP CCDS Ot Z79.4 NURSING HOME (CURRENT) USE OF INSULIN 08/17/2016 FLORY CONNELL FACC, NURYS FACP CCDS Ot Z79.899 OTHER [employer] (CURRENT) DRUG THERAPY 08/17/2016 NURYS RUTH MD, FACC FACP CCDS Ot E11.9 TYPE 2 DIABETES MELLITUS WITHOUT COMPLIC 08/17/2016 FLORY CONNELL FACC, NURYS FACP CCDS Ot E78.4 OTHER HYPERLIPIDEMIA 08/17/2016 FLORY CONNELL FACC, NURYS FACP CCDS Ot I10 ESSENTIAL (PRIMARY) HYPERTENSION 08/17/2016 FLORY CONNELL FACC, NURYS FACP CCDS Ot I25.10 ATHSCL HEART DISEASE OF [place] CORONARY 08/17/2016 FLORY CONNELL FACC, NURYS FACP CCDS Ot I73.9 PERIPHERAL VASCULAR DISEASE, UNSPECIFIED 08/17/2016 NURYS RUTH MD, FACC FACP CCDS Ot M79.89 OTHER SPECIFIED SOFT TISSUE DISORDERS 08/17/2016 FLORY CONNELL FACC, ALI FACP CCDS Ot R00.2 PALPITATIONS 08/17/2016 FLORY CONNELL FACC, ALI FACP CCDS Ot E11.9 TYPE 2 DIABETES MELLITUS WITHOUT COMPLIC 08/17/2016 FLORY CONNELL FACC, ALI FACP CCDS Ot E78.4 OTHER HYPERLIPIDEMIA 08/17/2016 FLORY CONNELL FACC, ALI FACP CCDS Ot I10 ESSENTIAL (PRIMARY) HYPERTENSION 08/17/2016 FLORY CONNELL FACC, ALI FACP CCDS Ot I25.10 ATHSCL HEART DISEASE OF [place] CORONARY 08/17/2016 FLORY CONNELL FACC, ALI FACP CCDS Ot I73.9 PERIPHERAL VASCULAR DISEASE, UNSPECIFIED 08/17/2016 FLORY CONNELL FACC, NURYS CAPPSP CCDS Ot M79.89 OTHER SPECIFIED SOFT TISSUE DISORDERS 08/17/2016 FLORY CONNELL FACC, NURYS CAPPSP CCDS Ot R00.2 PALPITATIONS 08/19/2016 MAU ALMONTE DOI Ot B96.20 UNSP ESCHERICHIA COLI THE CAUSE OF DI 08/19/2016 MAU ALMONTE DOI Ot E11.65 TYPE 2 DIABETES MELLITUS WITH HYPERGLYCE 08/19/2016 SUZY BONDS JARVIS Ot E86.0 DEHYDRATION 08/19/2016 SUZY BONDS JARVIS Ot F32.9 MAJOR DEPRESSIVE DISORDER, SINGLE EPISOD 08/19/2016 MAU ALMONTE DOI Ot F41.9 ANXIETY DISORDER, UNSPECIFIED 08/19/2016 SUZY BONDS JARVIS Ot I10 ESSENTIAL (PRIMARY) HYPERTENSION 08/19/2016 SUZY BONDS JARVIS Ot I25.10 ATHSCL HEART DISEASE OF [place] CORONARY 08/19/2016 MAU ALMOTNE DOI Ot N39.0 URINARY TRACT INFECTION, SITE NOT SPECIF 08/19/2016 MAU ALMONTE DOI Ot Z79.4 NURSING HOME (CURRENT) USE OF INSULIN 08/19/2016 SUZY BONDS JARVIS Ot Z95.5 PRESENCE OF CORONARY ANGIOPLASTY IMPLANT 11/04/2016 JONATHAN, SANYA L [employer] OFFICER Ot E78.4 OTHER HYPERLIPIDEMIA 11/04/2016 BAIMA, SANYA L [employer] OFFICER Ot I10 ESSENTIAL (PRIMARY) HYPERTENSION 11/04/2016 BAIMA, SANYA L [employer] OFFICER Ot I25.10 ATHSCL HEART DISEASE OF [place] CORONARY 11/04/2016 BAIMA, SANYA L [employer] OFFICER Ot I65.23 OCCLUSION AND STENOSIS OF [place] 11/18/2016 BAIMA, SANYA L [employer] OFFICER Ot E78.4 OTHER HYPERLIPIDEMIA 11/18/2016 BAIMA, SANYA L [employer] OFFICER Ot I10 ESSENTIAL (PRIMARY) HYPERTENSION 11/18/2016 BAIMA, SANYA L [employer] OFFICER Ot I25.10 ATHSCL HEART DISEASE OF [place] CORONARY 11/18/2016 BAIMA, SANYA L [employer] OFFICER Ot I65.23 OCCLUSION AND STENOSIS OF [place] 10/21/2017 FLORY CONNELL FACC, NURYS LAKHANI CCDS Ot E11.9 TYPE 2 DIABETES MELLITUS WITHOUT COMPLIC 10/21/2017 FLORY CONNELL FACC, ALI FACP CCDS Ot E78.5 HYPERLIPIDEMIA, UNSPECIFIED 10/21/2017 FLORY CONNELL FACC, ALI FACP CCDS Ot I10 ESSENTIAL (PRIMARY) HYPERTENSION 10/21/2017 FLORY CONNELL FACC, ALI FACP CCDS Ot I25.10 ATHSCL HEART DISEASE OF [place] CORONARY 10/21/2017 FLORY CONNELL FACC, ALI FACP CCDS Ot R00.2 PALPITATIONS 10/21/2017 FLORY CONNELL FACC, ALI FACP CCDS Ot R07.89 OTHER CHEST PAIN 11/05/2017 FLORY CONNELL [facility], ALI FACP CCDS Ot E11.9 TYPE 2 DIABETES MELLITUS WITHOUT COMPLIC 11/05/2017 FLORY CONNELL FACC, ALI FACP CCDS Ot E78.5 HYPERLIPIDEMIA, UNSPECIFIED 11/05/2017 FLORY CONNELL [facility], ALI FACP CCDS Ot I10 ESSENTIAL (PRIMARY) HYPERTENSION 11/05/2017 FLORY CONNELL [facility], ALI FACP CCDS Ot I25.10 ATHSCL HEART DISEASE OF [place] CORONARY 11/05/2017 FLORY CONNELL FACC, NURYS FACP CCDS Ot R00.2 PALPITATIONS 11/05/2017 FLORY CONNELL [facility], ALI FACP CCDS Ot R07.89 OTHER CHEST PAIN Procedures Code [place] [address] A1C (IN-HOUSE) 03/14/2013 80888 MICRO ALBUMIN-IN HOUSE 03/14/2013 30765 GLUCOSE FINGER STICK 03/24/2013 60685 ROUTINE VENIPUNCTURE 03/24/2013 10440 CMP 03/24/2013 44565 LIPID PANEL 03/24/2013 THYANA THYROID ANALYZER 03/24/2013 37283 ROUTINE VENIPUNCTURE 04/04/2013 55155 UA LONG DIP 04/04/2013 03418 CPK 04/04/2013 24882 CRP 04/04/2013 INTERNAL JARVIS ALMONTE 04/04/2013 CARDIOLOG NURYS RUTH 04/25/2013 37507 MICRO ALBUMIN-IN HOUSE 07/10/2013 87998 A1C (IN-HOUSE) 07/10/2013 45000 LEFT HEART CATH 07/25/2013 13478 OXIMETRY 09/06/2013 69189 A1C (IN-HOUSE) 10/09/2013 79991 ROUTINE VENIPUNCTURE 10/09/2013 09396 CMP 10/09/2013 13561 LIPID PANEL 10/09/2013 82271 CBC 10/09/2013 THYANA THYROID ANALYZER 10/09/2013 46531 ROUTINE VENIPUNCTURE 10/10/2013 43852 CALCIUM IONIZED 10/10/2013 24371 PTH (intact) (ORDER ONLY) 10/10/2013 28414 ROUTINE VENIPUNCTURE 10/11/2013 04325 PTH (intact) (ORDER ONLY) 10/11/2013 83398 EKG, TRACING (IN-HOUSE) 10/11/2013 97589 OXIMETRY 10/11/2013 1322474 CALCIUM (RESULT ONLY) 10/12/2013 7427008 PTH INTACT EDUARDO (RESULT ONLY) 10/12/2013 13274 HEPATITIS PROFILE 10/27/2013 65422 AMYLASE 10/27/2013 76548 GGT 10/27/2013 81268 LIPASE 10/27/2013 55721 ROUTINE VENIPUNCTURE 10/27/2013 58749 CMP 10/27/2013 59360 LIPID PANEL 10/27/2013 24044 A1C (IN-HOUSE) 01/23/2014 ENDOCRINVALERIY AMADOR 01/24/2014 77074 CBC 01/25/2014 39653 ROUTINE VENIPUNCTURE 01/25/2014 92598 CMP 01/25/2014 30419 LIPID PANEL 01/25/2014 41806 T4 FREE 01/25/2014 35016 TSH 01/25/2014 38019 FREE ASSAY (FT-3) 01/25/2014 Results Test Result Range Complete blood count (CBC) with automated white blood cell (WBC) differential - 08/17/16 17:33 Blood leukocytes automated count (number/volume) 23.9 10*3/uL 4.3-11.0 Blood erythrocytes automated count (number/volume) 5.22 10*6/uL 4.35-5.85 Venous blood hemoglobin measurement (mass/volume) 15.0 g/dL 11.5-16.0 Blood hematocrit (volume fraction) 43 % 35-52 Automated erythrocyte mean corpuscular volume 83 [foz_us] 80-99 Automated erythrocyte mean corpuscular hemoglobin (mass per erythrocyte) 29 pg 25-34 Automated erythrocyte mean corpuscular hemoglobin concentration measurement ( mass/volume) 35 g/dL 32-36 Automated erythrocyte distribution width ratio 12.4 % 10.0-14.5 Automated blood platelet count (count/volume) 354 10*3/uL 130-400 Automated blood platelet mean volume measurement 11.0 [foz_us] 7.4-10.4 Automated blood neutrophils/100 leukocytes 81 % 42-75 Automated blood lymphocytes/100 leukocytes 12 % 12-44 Blood monocytes/100 leukocytes 7 % 0-12 Automated blood eosinophils/100 leukocytes 0 % 0-10 Automated blood basophils/100 leukocytes 0 % 0-10 Blood neutrophils automated count (number/volume) 19.2 10*3 1.8-7.8 Blood lymphocytes automated count (number/volume) 2.9 10*3 1.0-4.0 Blood monocytes automated count (number/volume) 1.7 10*3 0.0-1.0 Automated eosinophil count 0.0 10*3/uL 0.0-0.3 Automated blood basophil count (count/volume) 0.1 10*3/uL 0.0-0.1 Blood manual differential performed detection - 08/17/16 17:33 Blood monocytes/100 leukocytes 6 % NRG Manual blood segmented neutrophils/100 leukocytes 68 % NRG Blood band neutrophils/100 leukocytes 12 % NRG Manual blood lymphocytes/100 leukocytes 14 % NRG Manual eosinophils/100 leukocytes in nose 0 % NRG Manual blood basophils/100 leukocytes 0 % NRG Blood erythrocyte morphology finding identification NORMAL NRG Whole blood basic metabolic panel - 08/17/16 17:33 Serum or plasma sodium measurement (moles/volume) 133 mmol/L 135-145 Serum or plasma potassium measurement (moles/volume) 4.2 mmol/L 3.6-5.0 Serum or plasma chloride measurement (moles/volume) 92 mmol/L 98-107 Carbon dioxide 20 mmol/L 21-32 Serum or plasma anion gap determination (moles/volume) 21 mmol/L 5-14 Serum or plasma urea nitrogen measurement (mass/volume) 16 mg/dL 7-18 Serum or plasma creatinine measurement (mass/volume) 1.04 mg/dL 0.60-1.30 Serum or plasma urea nitrogen/creatinine mass ratio 15 0 -20 Serum or plasma creatinine measurement with calculation of estimated glomerular filtration rate 55 NRG Serum or plasma glucose measurement (mass/volume) 470 mg/dL 70-105 Serum or plasma calcium measurement (mass/volume) 10.7 mg/dL 8.5-10.1 Complete urinalysis with reflex to culture - 08/17/16 17:43 Urine color determination YELLOW NRG Urine clarity determination SLIGHTLY CLOUDY NRG Urine pH measurement by test strip 5 5-9 Specific gravity of urine by test strip 1.010 1.016- 1.022 Urine protein assay by test strip, semi-quantitative 3+ NEGATIVE Urine glucose detection by automated test strip 4+ NEGATIVE Erythrocytes detection in urine sediment by light microscopy 5+ NEGATIVE Urine ketones detection by automated test strip 4+ NEGATIVE Urine nitrite detection by test strip NEGATIVE NEGATIVE Urine total bilirubin detection by test strip NEGATIVE NEGATIVE Urine urobilinogen measurement by automated test strip (mass/volume) NORMAL NORMAL Urine leukocyte esterase detection by dipstick 3+ NEGATIVE Automated urine sediment erythrocyte count by microscopy (number/high power field) > [HPF] NRG Automated urine sediment leukocyte count by microscopy (number/high power field ) > [HPF] NRG Bacteria detection in urine sediment by light microscopy FEW NRG Crystals detection in urine sediment by light microscopy NONE NRG Casts detection in urine sediment by light microscopy NONE NRG Mucus detection in urine sediment by light microscopy NEGATIVE NRG Complete urinalysis with reflex to culture YES NRG Bacterial urine culture - 08/17/16 17:43 Bacterial urine culture [id number] NRG COLONY COUNT >100,000/ML NRG FTX;REPORTABLE SENSITIVITY REPORTED 08/18/16 16:15 NR Bacterial susceptibility panel - 08/17/16 17:43 Gentamicin susceptibility test by minimum inhibitory concentration < = NRG Trimethoprim/sulfamethoxazole susceptibility test by minimum inhibitoryconcentration <= NRG Ampicillin susceptibility test by minimum inhibitory concentration < = NRG Tobramycin susceptibility test by minimum inhibitory concentration < = NRG Cefazolin susceptibility test by minimum inhibitory concentration < = NRG Ceftriaxone susceptibility test by minimum inhibitory concentration <= NRG Ampicillin/sulbactam susceptibility test by minimum inhibitory concentration <= NRG Piperacillin/tazobactam susceptibility test by minimum inhibitory concentration <= NRG Ciprofloxacin susceptibility test by minimum inhibitory concentration <= NRG Meropenem susceptibility test by minimum inhibitory concentration < = NRG Nitrofurantoin susceptibility test by minimum inhibitory concentration <= NRG Aztreonam susceptibility test by minimum inhibitory concentration < = NRG Extended spectrum beta lactamase (ESBL) producing bacteria susceptibility test by minimum inhibitory concentration - [facility] Blood lactic acid measurement (moles/volume) - 08/17/16 18:53 Blood lactic acid measurement (moles/volume) 1.27 mmol/L 0.50-2.00 Bacterial blood culture - 08/17/16 18:53 Bacterial blood culture NG NRG Bacterial blood culture - 08/17/16 18:57 Bacterial blood culture NG NRG Capillary blood glucose measurement by glucometer (mass/volume) - 08/17/16 19: 06 Capillary blood glucose measurement by glucometer (mass/volume) 306 mg/dL 70-110 Capillary blood glucose measurement by glucometer (mass/volume) - 08/17/16 20: 56 Capillary blood glucose measurement by glucometer (mass/volume) 316 mg/dL 70-110 Complete blood count (CBC) with automated white blood cell (WBC) differential - 08/18/16 05:30 Blood leukocytes automated count (number/volume) 11.4 10*3/uL 4.3-11.0 Blood erythrocytes automated count (number/volume) 4.21 10*6/uL 4.35-5.85 Venous blood hemoglobin measurement (mass/volume) 12.0 g/dL 11.5-16.0 Blood hematocrit (volume fraction) 35 % 35-52 Automated erythrocyte mean corpuscular volume 83 [foz_us] 80-99 Automated erythrocyte mean corpuscular hemoglobin (mass per erythrocyte) 29 pg 25-34 Automated erythrocyte mean corpuscular hemoglobin concentration measurement ( mass/volume) 34 g/dL 32-36 Automated erythrocyte distribution width ratio 12.1 % 10.0-14.5 Automated blood platelet count (count/volume) 267 10*3/uL 130-400 Automated blood platelet mean volume measurement 10.9 [foz_us] 7.4-10.4 Automated blood neutrophils/100 leukocytes 62 % 42-75 Automated blood lymphocytes/100 leukocytes 28 % 12-44 Blood monocytes/100 leukocytes 9 % 0-12 Automated blood eosinophils/100 leukocytes 1 % 0-10 Automated blood basophils/100 leukocytes 0 % 0-10 Blood neutrophils automated count (number/volume) 7.0 10*3 1.8-7.8 Blood lymphocytes automated count (number/volume) 3.2 10*3 1.0-4.0 Blood monocytes automated count (number/volume) 1.0 10*3 0.0-1.0 Automated eosinophil count 0.1 10*3/uL 0.0-0.3 Automated blood basophil count (count/volume) 0.0 10*3/uL 0.0-0.1 Capillary blood glucose measurement by glucometer (mass/volume) - 08/18/16 05: 36 Capillary blood glucose measurement by glucometer (mass/volume) 243 mg/dL 70-110 Capillary blood glucose measurement by glucometer (mass/volume) - 08/18/16 11: 00 Capillary blood glucose measurement by glucometer (mass/volume) 279 mg/dL 70-110 Capillary blood glucose measurement by glucometer (mass/volume) - 08/18/16 21: 06 Capillary blood glucose measurement by glucometer (mass/volume) 345 mg/dL 70-110 Capillary blood glucose measurement by glucometer (mass/volume) - 08/19/16 05: 30 Capillary blood glucose measurement by glucometer (mass/volume) 220 mg/dL 70-110 Capillary blood glucose measurement by glucometer (mass/volume) - 08/19/16 11: 00 Capillary blood glucose measurement by glucometer (mass/volume) 235 mg/dL 70-110 Encounters ACCT No. Visit Date/Time Discharge Status Pt. Type Provider Facility Loc./Unit Complaint [id number] 01/25/2014 09:59:00 01/25/2014 23:59:59 CLS Outpatient JOEL CM APRN [id number] 01/23/2014 14:04:00 01/23/2014 23:59:59 CLS Outpatient JOEL CM APRN [id number] 10/27/2013 08:47:00 10/27/2013 23:59:59 CLS Outpatient JOEL CM APRN [id number] 10/11/2013 10:20:00 10/11/2013 23:59:59 CLS Outpatient JOEL CM APRN [id number] 10/10/2013 08:03:00 10/10/2013 23:59:59 CLS Outpatient JOEL CM APRN [id number] 10/09/2013 08:45:00 10/09/2013 23:59:59 CLS Outpatient ANNEL LEDESMA DO [id number] 09/06/2013 07:52:00 09/06/2013 23:59:59 CLS Outpatient BHARGAV ROJAS APRN [id number] 07/19/2013 08:40:00 07/19/2013 23:59:59 CLS Outpatient ANNEL LEDESMA DO [id number] 07/10/2013 14:32:00 07/10/2013 23:59:59 CLS Outpatient CALLIE ANNEL BONDS Mavis [id number] 05/23/2013 13:12:00 05/23/2013 23:59:59 CLS Outpatient MAYRA MONTAÑO MD [id number] 04/25/2013 14:18:00 04/25/2013 23:59:59 CLS Outpatient ANNEL LEDESMA DO [id number] 04/04/2013 10:39:00 04/04/2013 23:59:59 CLS Outpatient ANNEL LEDESMA DO [id number] 03/24/2013 08:38:00 03/24/2013 23:59:59 CLS Outpatient ANNEL LEDESMA DO [id number] 03/14/2013 11:33:00 03/14/2013 23:59:59 CLS Outpatient ANNEL LEDESMA DO [id number] 11/11/2017 12:37:00 11/11/2017 23:59:59 CLS Preadmit SANYA CASTILLO [facility] CARD PT REQUESTED REMOVAL OF ILR [id number] 10/19/2017 07:49:00 10/19/2017 23:59:59 CLS Outpatient NURYS RUTH MD, FACC, FACP CCDS [facility] CARD CHEST DISCOMFORT, CAD,HTN,PALPITATIONS [id number] 05/25/2017 08:15:00 05/25/2017 23:59:59 CLS Preadmit NURYS RUTH MD, FACCP CCDS [facility] CARD R07.89 CHEST DISCOMFORT [id number] 12/25/2016 11:06:00 12/25/2016 23:59:59 CLS Preadmit NURYS RUTH MD, FACC FACKelsey CCDS [facility] CARD R07.89 CHEST DISCOMFORT [id number] 10/20/2016 11:43:00 10/20/2016 23:59:59 CLS Outpatient SANYA CASTILLO [facility] RAD I25.10 I65.23 I10 [id number] 08/17/2016 18:05:00 08/19/2016 13:00:00 DIS Inpatient JARVIS ALMONTE DO [facility] 4TH UTI,SEPSIS,HYPERGLYCEMIA [id number] 03/24/2016 09:00:00 03/24/2016 23:59:59 CLS Preadmit FLORY CONNELL FACC, ALI FACP CCDS [facility] CARD PALPATIONS,CAD, DMII,HTN,HLP [id number] 12/24/2015 08:48:00 03/23/2016 00:01:00 DIS Outpatient FLORY CONNELL FACC, ALI FACP CCDS [facility] CARD PALPATIONS, CAD,DMII,HTN,HLP [id number] 12/31/2015 12:04:00 12/31/2015 23:59:59 CLS Outpatient FLORY CONNELL FACC, ALI FACP CCDS [facility] CATH PALPITATIONS [id number] 12/05/2015 08:37:00 12/05/2015 23:59:59 CLS Outpatient FLORY CONNELL FACC, ALI FACP CCDS [facility] CARD CAD,HTN,DMII, PALPITATIONS [id number] 12/05/2015 08:32:00 12/05/2015 23:59:59 CLS Outpatient FLORY CONNELL FACC, ALI FACP CCDS [facility] CARD CAD,HTN,DMII, PALPITATIONS [id number] 11/28/2015 12:58:00 11/28/2015 23:59:59 CLS Outpatient FLORY CONNELL FACC, ALI FACP CCDS [facility] RAD RT LEG SWELLING,PALPITATIONS,CAD,HTN,HLP [id number] 01/24/2015 07:50:00 01/24/2015 23:59:59 CLS Outpatient SANYA CASTILLO [facility] CARD CP,CAD,HTN,HLP [id number] 01/22/2015 12:44:00 01/22/2015 23:59:59 CLS Outpatient HUMBERTO UCI [facility] RAD ROUTINE MAMMO SCREENING [id number] 10/09/2014 19:10:00 10/09/2014 19:42:00 DIS Emergency TRAVIS WOO APRN [facility] ER DENTAL PAIN [id number] 03/13/2014 11:08:00 03/13/2014 19:20:00 DIS Outpatient FLORY CONNELL FACC, ALI FACP CCDS [facility] CATH ANGINA,HTN, CAD,DM [id number] 12/18/2013 11:27:00 12/18/2013 13:40:00 DIS Emergency TRAVIS WOO APRN [facility] ER RIGHT ANKLE INJURY [id number] 11/06/2013 07:37:00 11/06/2013 23:59:59 CLS Outpatient SANYA CASTILLO [facility] LAB HYPERLIPIDEMIA, ELEVATED LIVER ENZYMES [id number] 11/01/2013 08:53:00 11/01/2013 23:59:59 CLS Outpatient SANYA CASTILLO [facility] RAD ELEVATED LIVER ENZYMES [id number] 10/30/2013 11:59:00 10/30/2013 14:49:00 DIS Emergency TRAVIS WOO APRN [facility] ER ABNORMAL BLOOD WORK [id number] 07/25/2013 07:13:00 07/26/2013 11:45:00 DIS Outpatient NURYS RUTH MD, FACC, FACP CCDS [facility] CATH CP,DM,HTN, HLP [id number] 10/09/2014 19:10:52 ACT Document Registration
[2017-11-16] MEDS ORDERED: LIDOCAINE 1% INJ 20 ML 20 ML VIAL ONE (09:48)
[2017-11-16 10:00] VITALS: BP 129/80
--- NOTE | 2017-11-16 10:09 | Cardiac Procedure Note-CS/ASA ---
Pre-Procedure Note Pre-Op Procedure Note H&P Reviewed The H&P was reviewed, patient examined and no changes noted. Date H&P Reviewed: Nov 16, 2017 Time H&P Reviewed: 10:09 Conscious Sedation Pre-Proced Time 10:09 ASA Score 3 For ASA 3 and 4: Consider anesthesia and medical clearance. Also, for patients with a history of failed moderate sedation consider anesthesia. Airway Lungs Heart ASA score ASA 1: a normal healthy patient ASA 2: a patient with a mild systemic disease (mid diabetes, controlled hypertension, obesity ASA 3: a patient with a severe systemic disease that limits activity (angina , COPD, prior Myocardial infarction) ASA 4: a patient with an incapacitating disease that is a constant threat to life (CHF, renal failure) ASA 5: a moribund patient not expected to survive 24 hrs. (ruptured aneurysm) ASA 6: a declared brain patient whose organs are being harvested. For emergent operations, add the letter E after the classification Mallampati Classification Grade 2 Sedation Plan Analgesia, Amnesia, Plan communicated to team members, Discussed options with patient/fam, Discussed risks with patient/fam The patient is an appropriate candidate to undergo the planned procedure, sedation, and anesthesia. The patient immediately re-assessed prior to indication. NURYS RUTH MD FACP FAC CCDS Nov 16, 2017 10:09
--- NOTE | 2017-11-16 10:31 | Discharge Inst-Cardiology ---
Discharge Inst-Cardiac Discharge Medications Continued Medications: Alprazolam (Alprazolam) 0.25 Mg Tablet 0.25 MG PO TID, TAB Aspirin (Aspir 81) 81 Mg Tablet.dr 81 MG PO DAILY, TAB Calcium Carbonate (Tums Ultra) 1,000 Mg Tab.chew 2000 MG PO TID PRN for STOMACH UPSET, TAB.CHEW Cefdinir (Cefdinir) 300 Mg Capsule 300 MG PO BID, #8 CAP Clopidogrel Bisulfate (Plavix Tablet) 75 Mg Tab 75 MG PO DAILY, TAB Cranberry Conc/C/Bacill Coag (Azo Cranberry Tablet) 1 Each Tablet 1 TAB PO BID PRN for URINARY PAIN, TAB Dicyclomine HCl (Dicyclomine HCl) 10 Mg Capsule 10 MG PO BID PRN for IBS, CAP Ibuprofen (Advil) 200 Mg Tablet 200 MG PO Q6H PRN for PAIN-MILD, TAB Insulin Lispro (Humalog) 100 Unit/1 Ml Vial 10 UNITS SC AC, EA Lactulose (Lactulose) 20 Gm/30 Ml Solution 10 GM PO TID, #8 OZ Levothyroxine Sodium (Levothyroxine 50 Mcg Tab) 50 Mcg Tablet 50 MCG PO DAILY, TAB Lisinopril (Lisinopril) 10 Mg Tablet 10 MG PO DAILY, TAB Metformin HCl (Metformin HCl ER) 500 Mg Tab.er.24h 500 MG PO DAILY, TAB Patient Instructions Patient Instructions: F/u at Dr Castro for wound inspection on 11/19/17 F/u at Dr Castro for doctor visit in 6 weeks NURYS RUTH MD FACP FAC CCDS Nov 16, 2017 10:31
[2017-11-16 10:39] VITALS: BP 132/78
--- NOTE | 2017-11-16 14:21 | OPERATIVE REPORT ---
DATE OF SERVICE: 11/16/2017 PREOPERATIVE DIAGNOSIS: Palpitations, status post implantable loop recorder implantation. POSTOPERATIVE DIAGNOSIS: Palpitations, status post removal of implantable loop recorder (per patient's request). PROCEDURE: Removal of implantable loop recorder. INDICATIONS: The patient is a 57-year-old lady, who has a history of palpitations and has an implantable loop recorder in place that she now wishes to have it removed. It is causing her considerable soreness and has not indicated significant arrhythmia. She is known to have premature ventricular contractions, but has not been noted to have any ventricular tachycardia or significant supraventricular arrhythmia. She specifically requested removal of the device. Informed consent was obtained. She was brought to the heart center in a fasting state. The left prepectoral area, the site of her implantable loop recorder implantation, was prepared and draped in a usual sterile fashion. Lidocaine 1% was used for local anesthesia. Sharp and blunt dissection was used to open the pocket and the device was removed. This was a small incision, which was closed using Dermabond and Steri-Strips. She tolerated the procedure well. Job ID: [id number] DocumentID: [id number] Dictated Date: 11/16/2017 10:38:57 Television Announcer Date: 11/16/2017 14:20:37 Dictated By: NURYS RUTH MD, MA, FACP, FACC, MTDD
== END 2017-11-16 10:41 | disposition home or self-care (01) ==
LOC: CARD 08:19
PROVIDERS: ATTEND Nurse Practitioner Family
DX: Z45.89 Encounter for adjustment and management of other implanted devices (principal); R00.2 Palpitations; I25.10 Atherosclerotic heart disease of native coronary artery without angina pectoris; I10 Essential (primary) hypertension; E78.5 Hyperlipidemia, unspecified; E11.9 Type 2 diabetes mellitus without complications; K21.9 Gastro-esophageal reflux disease without esophagitis; Z79.4 Long term (current) use of insulin; Z79.82 Long term (current) use of aspirin; Z79.899 Other long term (current) drug therapy; Z87.891 Personal history of nicotine dependence
CPT/HCPCS: 33284

== ENCOUNTER 2019-06-27 07:06 | Day surgery (SDC) | payer MEDICARE ==
[~2019-06-27] VITALS: Ht 153 cm; Wt 62.0 kg
[2019-06-27] VITALS (10 sets, daily range): BP systolic 143–157; BP diastolic 62–80
[~2019-06-27 07:06] MED LIST changes: +METF500T19 PO; -METF500T8 PO
[2019-06-27] MEDS ORDERED: NS IV 1000 ML 1,000 ML IV SCH ×2 (07:15→13:16)
[2019-06-27] MEDS ORDERED: HEParin (CATH LAB) 2,000 ML IV ONE (08:07)
[2019-06-27] MEDS ORDERED: LIDOCAINE 1% INJ 20 ML 20 ML VIAL ONE ×2 (08:07→12:12)
[2019-06-27] MEDS ORDERED: NS IV 1000 ML 1,000 ML ONE (08:07)
[2019-06-27 08:26] LABS: HEMOGLOBIN 13.6 G/DL (11.5-16.0); MEAN PLATELET VOLUME 9.7 FL (7.4-10.4); RED CELL DISTRIBUTION WIDTH 12.8 % (10.0-14.5); WHITE BLOOD COUNT 8.1 10^3/uL (4.3-11.0)
[2019-06-27 08:40] LABS: ALBUMIN 4.3 GM/DL (3.2-4.5); CHLORIDE 102 MMOL/L (98-107); POTASSIUM 4.1 MMOL/L (3.6-5.0); SODIUM 138 MMOL/L (135-145)
[2019-06-27 08:41] LABS: CALCIUM 10.1 MG/DL (8.5-10.1)
[2019-06-27] MEDS ORDERED: INSU100I55 SQ (08:41)
[2019-06-27] MEDS ORDERED: OMEP20CA18 PO ×2 (08:41→13:37)
[2019-06-27] MEDS ORDERED: MAGN100T5 PO ×2 (08:41→13:37)
[2019-06-27] MEDS ORDERED: FOLI1TAB57 PO (08:41)
[2019-06-27] MEDS ORDERED: OMEG1CAP58 PO ×2 (08:41→13:37)
[2019-06-27] MEDS ORDERED: ONDA4TAB11 PO ×2 (08:41→13:37)
[2019-06-27 08:42] LABS: TOTAL PROTEIN 7.3 GM/DL (6.4-8.2); TRIGLYCERIDES 146 MG/DL (<150); VLDL CHOLESTEROL 29 MG/DL (5-40)
[2019-06-27 08:43] LABS: GLUCOSE 173 MG/DL (70-105)
[2019-06-27 08:44] LABS: BILIRUBIN,TOTAL 0.4 MG/DL (0.1-1.0); CARBON DIOXIDE 23 MMOL/L (21-32)
[2019-06-27 08:46] LABS: ALKALINE PHOSPHATASE 66 U/L (40-136); CREATININE SERUM 0.69 MG/DL (0.60-1.30); GFR ESTIMATED > 60
[2019-06-27 08:47] LABS: BUN/CREATININE RATIO 17; CHOLESTEROL 324 MG/DL (< 200)
[2019-06-27 08:48] LABS: HDL CHOLESTEROL 54 MG/DL (40-60)
[2019-06-27 08:49] LABS: ALANINE AMINOTRANSFERASE 15 U/L (0-55)
[2019-06-27] MEDS ORDERED: MIDAZOLAM 5 MG/5 ML (VERSED) VIAL ONE (11:42)
[2019-06-27] MEDS ORDERED: fentaNYL INJECTION 100 MCG/2 ML AMP ONE (11:42)
--- NOTE | 2019-06-27 12:11 | Cardiac Procedure Note-CS/ASA ---
Pre-Procedure Note Pre-Op Procedure Note H&P Reviewed The H&P was reviewed, patient examined and no changes noted. Date H&P Reviewed: June 27, 2019 Time H&P Reviewed: 12:11 Conscious Sedation Pre-Proced Time 12:11 ASA Score 3 For ASA 3 and 4: Consider anesthesia and medical clearance. Also, for patients with a history of failed moderate sedation consider anesthesia. Airway Lungs Heart ASA score ASA 1: a normal healthy patient ASA 2: a patient with a mild systemic disease (mid diabetes, controlled hypertension, obesity ASA 3: a patient with a severe systemic disease that limits activity (angina, COPD, prior Myocardial infarction) ASA 4: a patient with an incapacitating disease that is a constant threat to life (CHF, renal failure) ASA 5: a moribund patient not expected to survive 24 hrs. (ruptured aneurysm) ASA 6: a declared brain- patient whose organs are being harvested. For emergent operations, add the letter E after the classification Mallampati Classification Grade 2 Sedation Plan Analgesia, Amnesia, Plan communicated to team members, Discussed options with patient/fam, Discussed risks with patient/fam The patient is an appropriate candidate to undergo the planned procedure, sedation, and anesthesia. The patient immediately re-assessed prior to indication. NURYS RUTH MD FACP FAC CCDS June 27, 2019 12:11
[2019-06-27] MEDS ORDERED: PATIENT MAY USE OWN MEDS, ALL PO SCH (13:30)
[2019-06-27] MEDS ORDERED: INSU100I29 SQ (13:37)
[2019-06-27] MEDS ORDERED: ALPR0.254 PO (13:37)
[2019-06-27] MEDS ORDERED: DICY10CA12 PO (13:37)
[2019-06-27] MEDS ORDERED: ASPI-586 PO (13:37)
[2019-06-27] MEDS ORDERED: LEVO50TA6 PO (13:37)
[2019-06-27] MEDS ORDERED: MULT-1136 PO (13:37)
--- NOTE | 2019-06-27 13:39 | CARDIAC CATHETERIZATION ---
DATE OF SERVICE: 06/27/2019 CARDIAC CATHETERIZATION The patient is a 58-year-old lady with known coronary artery disease who has been having increasing chest and epigastric discomfort. Cardiac catheterization was carried out today after having obtained informed consent. DESCRIPTION OF PROCEDURE: She was brought to the cardiac catheterization in a fasting state. Right groin was prepared and draped in the usual sterile fashion. Lidocaine 1% used for local anesthesia. Modified Seldinger technique was used to advance a 5-Montenegrin sheath in the right femoral artery. A 5-Mont[place]grin JL3.5 catheter was used for left coronary angiography. A 5-[place]grin JR4 catheter was used for right coronary angiography, 5-Montenegrin pigtail catheter was used for left heart catheterization and left ventricular angiography. Angiography of the right femoral artery was carried out through the sheath. Mynx was used to achieve hemostasis. She tolerated the procedure well. HEMODYNAMICS: Left ventricular end-diastolic pressure following coronary angiography was 17 mmHg. There was no significant pressure gradient on pullback across the aortic valve. Ascending aortic pressure was 170/99 with a mean of 134 mmHg. CORONARY ANGIOGRAPHY: Left main coronary artery is free of significant disease. Left anterior descending artery has approximately 30 to 40% ostial, proximal and mid vessel stenosis. The distal right coronary artery is a small caliber and has multiple up to 70% stenoses. The first diagonal branch is of a small caliber and has approximately 60 to 70% mid vessel stenosis. The left circumflex artery has a patent stent in its distal portion. The mid left circumflex artery has approximately 50% stenosis. The arteries are tortuous. Right coronary artery is dominant. It has approximately 40% to 50% distal stenosis. LEFT VENTRICULAR ANGIOGRAPHY: Left ventricular angiography was carried out to the right anterior oblique projection. Global left ventricular systolic function is normal to hyperdynamic. Left ventricular ejection fraction is estimated to be 65 to 70%. CONCLUSIONS: 1. Diffuse, moderate to moderately severe, distal disease of all the coronary arteries, as detailed above. This primarily consists of moderately severe diffuse disease of the distal left anterior descending and the distal right coronary artery. The mid left circumflex artery has moderate disease and the mid to distal left circumflex artery has a patent, previously placed stent (Promus 2.25 x8, placed in 2013). 2. Normal global left ventricular systolic function with ejection fraction 65 to 70%. 3. Elevated left ventricular end-diastolic pressure (17 mmHg). DISCUSSION AND RECOMMENDATIONS: The coronary artery disease is distal where the vessels are of a very small caliber. These do not appear amenable to intervention. Risk factor modification and medical therapy is advised. One of the problem is that she has been intolerant to every single medication for lipid management, including statins and fibrates and ezetimibe and the newer agents, such as Praluent. Today, we had a long discussion. Her intolerance to statins has been relatively nonspecific. She is willing to try the lowest possible dose of the most well tolerated statin, she says. Accordingly, we are starting pravastatin 10 mg every other day. If she is able to tolerate this, we will try to gradually increase it. In addition, we recommend dual antiplatelet therapy. She is already taking aspirin in a low dose. We have advised Plavix. She does not wish to take that daily. She will take Plavix 75 mg every other day. We will also gradually adjust the rest of her regimen. We have advised close clinical followup. She states that she will comply. Job ID: [id number] DocumentID: [id number] Dictated Date: 06/27/2019 13:08:37 Shaft Sinker Date: 06/27/2019 13:38:41 Dictated By: NURYS RUTH MD, MA, FACP, FACC, MTDD
[2019-06-27] MEDS ORDERED: CLOP75TA69 PO (13:53)
[2019-06-27] MEDS ORDERED: AMLO2.5T4 PO (13:53)
[2019-06-27] MEDS ORDERED: PRAV10TA PO (13:53)
--- NOTE | 2019-06-27 13:54 | Discharge Inst-Post CATH ---
Discharge Inst-CATH/EP Post Cardiac Cath/EP D/C Inst Follow Up/Plan F/u with Dr Israel in 1-2 weeks ACTIVITY * Go Home directly and rest. * Limit activity of the leg (or wrist if it was used) for 7 days including aerobics, swimming, jogging, bicycling, etc. * Restrict stair-climbing for 7 days if possible, if not, climb up with your non-cath leg, then bring together on the same step. * Avoid lifting, pushing, pulling or excessive movement of the affected extremity for 7 days. * Customary sexual activity may be resumed after 2 days-use caution not to use a position that strains or causes pain to the affected extremity. * No driving for 24 hours. * NO SMOKING. * Avoid straining for bowel movements for 7 days. * Gentle walking on level ground is allowed. * Returning to work will depend on the type of procedure and the results. Your doctor will discuss this with you. CALL YOUR DOCTOR FOR ANY OF THE FOLLOWING: *If bleeding from the puncture site occurs- Apply gentle pressure to site with clean cloth and call your doctor or EMS. * If a knot or lump forms under the skin, increases in size, or causes pain. * If bruising appears to be worsening or moving further down your leg instead of disappearing. * Temperature above 101 F. CARE OF YOUR GROIN INCISION; * Bruising or purple discoloration of the skin near the puncture site is common. * You may shower only, no bathtub bathing for 5 days. Be careful to avoid slipping as your leg may feel stiff. * If a closure device was used on your femoral artery, please see the attached guide regarding care of the device and your leg. * Leave dressing on FOR 24 hours. CARE OF YOUR WRIST INCISION; * Bruising or purple discoloration of the skin near the puncture site is common. * You may shower. * DO NOT submerge wrist. * Leave dressing on FOR 24 hours. NURYS ISRAEL MD FACP FAC CCDS June 27, 2019 13:54
--- NOTE | 2019-06-27 13:54 | Discharge Inst-Cardiology ---
Discharge Inst-Cardiac Discharge Medications New Medications: Amlodipine Besylate (Amlodipine Besylate) 2.5 Mg Tablet 2.5 MG PO DAILY, #90 TAB 3 Refills Clopidogrel Bisulfate (Plavix) 75 Mg Tablet 75 MG PO every other day, #45 TAB 3 Refills Pravastatin Sodium (Pravastatin Sodium) 10 Mg Tablet 10 MG PO every other day, #45 TAB 3 Refills Continued Medications: Alprazolam (Alprazolam) 0.25 Mg Tablet 0.25 MG PO PRN PRN for ANXIETY for 7 Days, TAB Aspirin (Aspir 81) 81 Mg Tablet.dr 81 MG PO DAILY, TAB Dicyclomine HCl (Dicyclomine HCl) 10 Mg Capsule 10 MG PO PRN, CAP Insulin Detemir (Levemir Flextouch) 100 Unit/1 Ml Insuln.pen 30 UNIT SQ BID, EA Levothyroxine Sodium (Levothyroxine Sodium) 50 Mcg Tablet 50 MCG PO DAILY, TAB Magnesium Amino Acid Chelate (Magnesium) 100 Mg Tablet 100 MG PO DAILY, TAB Multivitamin (Multivitamin) 1 Each Tablet 1 EACH PO DAILY, TAB Miami-3 Fatty Acids/Fish Oil ([place] 3 1,000 mg Softgel) 1 Each Capsule 1 EACH PO DAILY, CAP Omeprazole (Omeprazole) 20 Mg Capsule.dr 20 MG PO DAILY, CAP Ondansetron (Ondansetron Odt) 4 Mg Tab.rapdis 4 MG PO PRN PRN for NAUSEA-1ST LINE, TAB NURYS RUTH MD FACP FAC CCDS June 27, 2019 13:54
== END 2019-06-27 16:20 | disposition home or self-care (01) ==
LOC: CATH 07:06
PROVIDERS: ATTEND Internal Medicine Cardiovascular Disease
DX: I25.10 Atherosclerotic heart disease of native coronary artery without angina pectoris (principal); I70.0 Atherosclerosis of aorta; I10 Essential (primary) hypertension; I73.9 Peripheral vascular disease, unspecified; I65.29 Occlusion and stenosis of unspecified carotid artery; E11.43 Type 2 diabetes mellitus with diabetic autonomic (poly)neuropathy; K31.84 Gastroparesis; E78.1 Pure hyperglyceridemia; K58.9 Irritable bowel syndrome, unspecified; K21.9 Gastro-esophageal reflux disease without esophagitis; E78.5 Hyperlipidemia, unspecified; F32.9 Major depressive disorder, single episode, unspecified; F41.1 Generalized anxiety disorder; Z88.8 Allergy status to other drugs, medicaments and biological substances; Z88.5 Allergy status to narcotic agent; Z79.899 Other long term (current) drug therapy; Z79.4 Long term (current) use of insulin; Z79.82 Long term (current) use of aspirin; K76.0 Fatty (change of) liver, not elsewhere classified; Z90.710 Acquired absence of both cervix and uterus; Z90.89 Acquired absence of other organs; Z87.891 Personal history of nicotine dependence; Z80.9 Family history of malignant neoplasm, unspecified
CPT/HCPCS: 36415; 80053; 80061; 85027; 85610; 85730; 87081; 93458

== ENCOUNTER → 2019-08-01 | Outpatient (CLI) | payer MEDICARE ==
[~2019-08-01] MED LIST changes: +AMLO2.5T4 PO; +ASPI-586 PO; +CLOP75TA69 PO; +FOLI1TAB57 PO; +INSU100I29 SQ; +INSU100I55 SQ; +LEVO50TA6 PO; +MAGN100T5 PO; +METF-865 PO; -METF500T19 PO; +MULT-1136 PO; +OMEG1CAP58 PO; +OMEP20CA18 PO; +ONDA4TAB11 PO; +PRAV10TA PO
[2019-08-01 08:29] LABS: BASOPHILS # (AUTO) 0.1 10^3/uL (0.0-0.1); BASOPHILS % (AUTO) 1 % (0-10); EOSINOPHILS # (AUTO) 0.2 10^3/uL (0.0-0.3); EOSINOPHILS % (AUTO) 2 % (0-10); HEMATOCRIT 38 % (35-52); LYMPHOCYTES # (AUTO) 2.6 X 10^3 (1.0-4.0); LYMPHOCYTES % (AUTO) 29 % (12-44); MEAN CORPUSCULAR HEMOGLOBIN 29 PG (25-34); MEAN CORPUSCULAR HGB CONC 34 G/DL (32-36); MEAN CORPUSCULAR VOLUME 85 FL (80-99); MEAN PLATELET VOLUME 9.6 FL (7.4-10.4); MONOCYTES # (AUTO) 0.5 X 10^3 (0.0-1.0); MONOCYTES % (AUTO) 6 % (0-12); NEUTROPHILS # (AUTO) 5.6 X 10^3 (1.8-7.8); NEUTROPHILS % (AUTO) 63 % (42-75); PLATELET COUNT 323 10^3/uL (130-400); RED CELL DISTRIBUTION WIDTH 12.9 % (10.0-14.5); WHITE BLOOD COUNT 8.9 10^3/uL (4.3-11.0)
[2019-08-01 08:49] LABS: ALANINE AMINOTRANSFERASE 34 U/L (0-55); ALBUMIN 4.2 GM/DL (3.2-4.5); ALKALINE PHOSPHATASE 67 U/L (40-136); BILIRUBIN,TOTAL 0.2 MG/DL (0.1-1.0); BUN/CREATININE RATIO 18; CALCIUM 9.8 MG/DL (8.5-10.1); CARBON DIOXIDE 26 MMOL/L (21-32); CHLORIDE 104 MMOL/L (98-107); CHOLESTEROL 270 MG/DL (< 200); CREATININE SERUM 0.71 MG/DL (0.60-1.30); GFR ESTIMATED > 60; GLUCOSE 179 MG/DL (70-105); HDL CHOLESTEROL 62 MG/DL (40-60); MAGNESIUM 2.5 MG/DL (1.6-2.4); SODIUM 138 MMOL/L (135-145); TOTAL PROTEIN 7.3 GM/DL (6.4-8.2); TRIGLYCERIDES 110 MG/DL (<150); VLDL CHOLESTEROL 22 MG/DL (5-40)
[2019-08-01 08:59] LABS: ERYTHROCYTE SEDIMENTATION RATE 36 MM/HR (0-30)
== END ==
LOC: LAB 08:14
PROVIDERS: ATTEND Internal Medicine Cardiovascular Disease
DX: I25.10 Atherosclerotic heart disease of native coronary artery without angina pectoris (principal); I65.23 Occlusion and stenosis of bilateral carotid arteries; E11.9 Type 2 diabetes mellitus without complications; I10 Essential (primary) hypertension; E78.5 Hyperlipidemia, unspecified
CPT/HCPCS: 36415; 80053; 80061; 83735; 85025; 85652